=== PATIENT | female | born 1935 | race Caucasian/White ===

== ENCOUNTER 2023-11-20 12:40 | Inpatient (IN) | payer OTHER, SELFPAY ==
[2023-11-20] VITALS (48 sets, daily range): BP systolic 98–172; BP diastolic 52–79; PULSE 63–80; RESP 12–28; TEMP 35.9–37.4; O2SAT 93–100; BMI 24.7
--- NOTE | 2023-11-20 | PATH_ITS ---
[facility] Accession Number: [id number] No. of containers..01 Tissue . 01 Material submitted: . small bowel - SMALL BOWEL . 01 Diagnosis: Small Bowel, Segmental Resection: Acute ischemic enteritis, including fresh hemorrhage, crypt atrophy, and neutrophilic activity. See comment. Serositis. Negative for dysplasia and malignancy. MRV 11/25/2023 1622 Local . 01 Comment: The reported incarcerated umbilical hernia is noted. No obvious viral cytopathic effects are identified and there is no evidence of vasculitis. . 01 Electronically signed: . Fiona Nguyen MD, Pathologist NPI- [id number] . 01 Gross description: . The specimen is received in formalin labeled with the patient's name, , and small bowel, consists of an unoriented portion of bowel measuring 8.0 cm in length by 1.9 cm in diameter with mesentery extending out to 2.1 cm. The serosa is hemorrhagic and ragged across an area measuring 5.6 cm in greatest dimension. The hemorrhagic mucosa is located equidistant from both the staple margins at 1.5 cm. The staple margins are inked black and blue, and the mesentery margin is inked green. The mucosa is dusky hong-brown with normal appearing folds and no lesions identified. The robbins average 0.3 cm thick with no perforations identified. No lymph nodes are identified upon palpation. Shift Coordinator sections are submitted as follows: . A1: Rep margins en face. A2: Full thickness sections with hemorrhagic and nonhemorrhagic serosa. ([id number]) /MRV 11/23/2023 1210 Local . 01 Pathologist provided ICD-10: K55.019 . 01 CPT . 986088 Specimen Comment: A courtesy copy of this report has been sent to [phone] Performed at: 01 [facility] [address] [place] [address], [place], [place] [id number] MD Felipe Rosenthal MD Phone: [phone]
[2023-11-20 13:00] LABS: Add Manual Diff / Slide Review NO; Basophils Absolute Auto 0 /uL (0-100); Basophils Percent Auto 0.1 % (0-2); Eosinophils Absolute Auto 0 /uL (0-450); Eosinophils Percent Auto 0.3 % (2-4); Hematocrit 42.3 % (36-46); Hemoglobin 13.7 g/dL (12.0-16.0); INR 2.9 (0.9-1.3); Lymphocytes Absolute Auto 600 /uL (1100-4500); Lymphocytes Percent Auto 3.2 % (25-40); Mean Corpuscular HGB Conc 32.4 % (30-36); Mean Corpuscular Hemoglobin 30.4 PG (26-34); Mean Corpuscular Volume 93.9 fL (80-100); Monocytes Absolute Auto 900 /uL (0-900); Monocytes Percent Auto 4.9 % (3-14); Neutrophils Absolute Auto 17600 /uL (1500-7000); Neutrophils Percent Auto 91.5 % (50-75); Platelet Count 146 X10^3/uL (150-400); Prothrombin Time 34.1 SECONDS (9.4-12.5); Red Blood Cell Count 4.51 X10^6/uL (4.0-5.2); Red Cell Distribution Width 15.1 % (11.6-14.8); White Blood Cell Count 19.2 X10^3/uL (4.5-11.0)
[2023-11-20] MEDS: SODIUM CHLORIDE 0.9% 1,000 ML 250 ML IV (13:01)
[2023-11-20] MEDS: ONDANSETRON 4 MG/2 ML INJ IV (13:01)
[2023-11-20 13:06] LABS: Alanine Aminotransferase 47 IU/L (<35); Albumin 3.7 g/dL (3.5-5.0); Albumin Globulin Ratio 1.1 (1.0-2.8); Alkaline Phosphatase 87 U/L (38-126); BUN Creatinine Ratio 45.7 (6-22); Bilirubin Total 2.1 mg/dL (0.2-1.3); Blood Urea Nitrogen 32 mg/dL (7-17); Calcium 11.2 mg/dL (8.4-10.2); Carbon Dioxide 29 mmol/L (22-32); Chloride 96 mmol/L (98-107); Creatine Kinase 28 U/L (30-135); Estimated Glomerular Filt Rate > 60 mL/min (>60); Globulin 3.3 g/dL (1.7-4.1); Glucose 153 mg/dL (80-110); Lipase 76 U/L (23-300); Sodium 131 mmol/L (137-145)
[2023-11-20 13:15] LABS: NT-proBNP (BNP-Adult 18+) 2960 pg/mL (<450)
[2023-11-20 13:18] LABS: Aspartate Aminotransferase 51 IU/L (14-36); HEMOLYSIS 51 (0-50); Potassium 4.6 mmol/L (3.4-5.1); Troponin I 0.041 ng/mL (0.01-0.034)
--- NOTE | 2023-11-20 13:22 | DI.CT.S_ITS ---
PROCEDURE: CT ABDOMEN PELVIS W CON INDICATIONS: abd pain w/ nausea/vomiting TECHNIQUE: After the administration of intravenous contrast, axial sections acquired from the lung bases to the pubic symphysis. Coronal and sagittal reformats were performed. For radiation dose reduction, the following was used: automated exposure control, adjustment of mA and/or kV according to patient size. COMPARISON: None. FINDINGS: Image quality: Diagnostic. Lower Chest: Right lower lobe traction bronchiectasis with small tree-in-bud nodularity which may be exaggerated by patient motion. Cardiomegaly. Hiatal hernia. ABDOMEN: Liver: The colon is interposed between the liver and the abdominal wall. Gallbladder: The gallbladder is not identified likely surgically absent. Biliary ducts: Mild central biliary prominence, a normal finding status post cholecystectomy. Pancreas: No ductal dilation. Spleen: Size is within normal limits. Adrenal Glands: No adrenal nodules. Kidneys and Ureters: Indeterminate density right nodules with soft tissue density. These may represent hyperdense cyst versus renal masses. Exophytic left renal cyst. No hydronephrosis or stone identified. Stomach and Bowel: Small bowel obstruction with transition point at a bowel containing umbilical hernia. Small hiatal hernia Peritoneum: No abnormal intraperitoneal fluid. No free air. Ventral Wall: Bowel containing umbilical hernia. Abdominal Nodes: No retroperitoneal or mesenteric adenopathy by size criteria. Vessels: Aorta and inferior vena cava are normal in size. PELVIS: Pelvic Organs: Unremarkable. Bladder: Unremarkable. Pelvic Nodes: No enlarged lymph nodes. Miscellaneous: No inguinal hernias are seen. Bones: No aggressive osseous abnormality. IMPRESSION: 1. Small bowel obstruction with transition point at a bowel containing umbilical hernia. 2. Indeterminate right renal nodules. Consider palpation ultrasound evaluation to determine if cystic. 3. Cardiomegaly. 4. Hiatal hernia. 5. Questionable tree-in-bud nodularity of the right lower lobe, consider atypical infection. Dictated by: Hung Callejas M.D. on 11/20/2023 at 13:29 Approved by: Hung Callejas M.D. on 11/20/2023 at 13:39
[2023-11-20 14:36] LABS: Procalcitonin 0.09 ng/mL (<0.5)
--- NOTE | 2023-11-20 14:52 | ED_ITS ---
HPI - Abdominal Pain General Chief Complaint: Abdominal Pain Stated Complaint: Abd pain Time Seen by Provider: 11/20/23 14:45 Source: patient and EMS Mode of arrival: EMS Limitations: no limitations History of Present Illness HPI narrative: This is an 88-year-old female with history of atrial fibrillation, prior cardiac stents and pacemaker on warfarin, hypertension, hypothyroidism, breast cancer. Patient states she has a known umbilical hernia. The popped out yesterday and has stayed out and become painful. She started having nausea and vomiting and has not been able to keep anything down. She states it has been sometime since she had a formed bowel movement had some thin liquid he ?murky? stools recently but nothing in the last 1-2 days. She states she started having some difficulties with urination overnight. She denies fevers or chills. Denies any chest pain or shortness of breath. She states she has had prior pacemaker, cardiac stents and cholecystectomy. States she takes medication for blood pressure, hypertension, coags recently was on dexamethasone. Patient states no known drug allergies. No tobacco, rare alcohol, no recreational drugs. Sees Dr. Gran[facility]. Related Data Home Medications Medication Instructions Recorded Confirmed acetaminophen 500 mg tablet 1,000 mg PO TID 11/20/23 11/20/23 dexamethasone 2 mg tablet 2 mg PO DAILY 11/20/23 11/20/23 levothyroxine 50 mcg tablet 50 mcg PO DAILY 11/20/23 11/20/23 losartan 25 mg tablet 12.5 mg PO BEDTIME 11/20/23 11/20/23 metoprolol succinate 50 mg 50 mg PO QPM 11/20/23 11/20/23 tablet,extended release 24 hr ondansetron 4 mg disintegrating 4 mg PO Q6H PRN nausea/vomiting 11/20/23 11/20/23 tablet oxycodone 5 mg tablet 5 mg PO Q4HR PRN Pain (Scale Score 11/20/23 11/20/23 7-10) sennosides 8.6 mg tablet (senna) 8.6 mg PO BEDTIME 11/20/23 11/20/23 tizanidine 2 mg tablet 1 mg PO Q6HR PRN Muscle Spasm 11/20/23 11/20/23 warfarin 1 mg tablet 1.5 mg PO QPM 11/20/23 11/20/23 Allergies Allergy/AdvReac Type Severity Reaction Status Date / Time No Known Drug Allergies Allergy Verified 11/20/23 12:46 Review of Systems Review of Systems ROS Unobtainable: All systems reviewed & are unremarkable except as noted in HPI and below Patient History Medical History (Updated 11/20/23 @ 17:27 by Ray Schaeffer MD) Breast cancer Hyponatremia Hypothyroid Hyperlipidemia Congestive heart failure Atrial fibrillation Pathologic fracture Hiatal hernia Surgical History (Updated 11/20/23 @ 17:24 by Ray Schaeffer MD) H/O mastectomy History of cholecystectomy Social History Smoking Status: Never smoker Smoking Status: Never smoker alcohol intake frequency: 0-2 drinks per day Substance Use Type: does not use Exam Narrative Exam Narrative: GENERAL: Alert and oriented x three, moderate distress. HEENT: Head normocephalic, atraumatic, EOMI, pupils reactive, face symmetric, moist mucous membranes NECK: Supple, full range of motion CARDIOVASCULAR: Regular rate and rhythm without murmurs, rubs or gallops. RESPIRATORY: Breath sounds equal bilaterally, no wheezes rales or rhonchi. ABDOMEN: Soft, patient has umbilical hernia that is painful, slightly discolored, unable to easily reduce. Patient is distended. Normoactive bowel sounds all 4 quadrants. No guarding or rebound, rigidity, no mass : No CVA tenderness EXTREMITIES: Normal range of motion, no clubbing or edema. Neurovascularly intact NEUROLOGICAL: Cranial nerves II through XII grossly intact. Moving all extremities SKIN: Warm, dry, no petechiae, no rashes or lesions. Initial Vital Signs Initial Vital Signs: Vital Signs Pulse Rate 75 11/20/23 12:37 Pulse Oximetry 96 11/20/23 12:37 Course Orders Ordered: ED Orders 11/20/23 12:44 BNP [NT-proBNP (BNP-Adult 18+)] Stat Complete Blood Count AUTO DIFF Stat Comprehensive Metabolic Panel Stat Lactate (Lactic Acid) Stat Lipase Stat Procalcitonin Stat Prothrombin Time INR Stat Troponin & CK Cardiac Panel Stat 11/20/23 12:48 EKG-12 Lead Stat 11/20/23 13:22 CT abdomen pelvis w con Stat 11/20/23 14:00 Blood Culture Stat 11/20/23 15:30 Lactate (Lactic Acid) Stat Type and Screen Stat 11/20/23 16:26 Urinalysis and Microscopic Stat Urine Culture Stat Heparin Sodium (Porcine) (Heparin 5,000 Unit/Ml Vial) 5,000 unit SUBCUT BID DIANA Hydromorphone HCl (Hydromorphone 1 Mg Inj) 0 mg IV Q5MIN PRN PRN Reason: Pain, Moderate (4-6) Dextrose/Sodium Chloride (Dextrose 5%-0.9% Ns) 1,000 mls @ 75 mls/hr IV CONT DIANA Piperacillin Sod/Tazobactam (Sod 3.375 gm/ Sodium Chloride) 100 mls @ 25 mls/hr IV Q8H DIANA Morphine Sulfate (Morphine 4 Mg/Ml Inj) 3 mg IV Q2HR DIANA Naloxone HCl (Naloxone 0.4 Mg/Ml Vial) 0.2 mg IV Q2MIN PRN PRN Reason: Opiate Reversal Ondansetron HCl (Ondansetron 4 Mg Odt) 4 mg PO NOW PRN PRN Reason: Nausea And Vomiting Last Admin: 11/20/23 15:19 Dose: 4 mg Documented By: JAY JAY Ondansetron HCl (Ondansetron 4 Mg/2 Ml Inj) 4 mg IV NOW PRN PRN Reason: Nausea And Vomiting Last Admin: 11/20/23 13:01 Dose: 4 mg Documented By: MANOHAR Ondansetron HCl (Ondansetron 4 Mg/2 Ml Inj) 4 mg IV NOW PRN PRN Reason: Nausea And Vomiting Discontinued Medications Bupivacaine HCl (Bupivacaine 0.25% (Pf) Vial) 30 ml INJ NOW ONE Stop: 11/20/23 18:16 Last Admin: 11/20/23 18:15 Dose: 30 ml Documented By: ALEXIA Sodium Chloride (Normal Saline 0.9%) 1,000 mls @ 250 mls/hr IV BOLUS ONE Stop: 11/20/23 16:52 Last Infusion: 11/20/23 15:19 Dose: Infused Documented By: JAY JAY Infusion: 11/20/23 14:26 Dose: 1,000 mls/hr Documented By: Infusion: 11/20/23 13:47 Dose: 0 mls/hr Documented By: Admin: 11/20/23 13:01 Dose: 250 mls/hr Documented By: MANOHAR Sodium Chloride (Normal Saline 0.9%) 1,000 mls @ 1,000 mls/hr IV BOLUS ONE Stop: 11/20/23 16:07 Last Infusion: 11/20/23 16:38 Dose: Infused Documented By: JAY JAY Admin: 11/20/23 15:27 Dose: 1,000 mls/hr Documented By: JAY JAY Phytonadione 10 mg/ Sodium (Chloride) 101 mls @ 202 mls/hr IV NOW ONE Stop: 11/20/23 15:32 Last Infusion: 11/20/23 16:38 Dose: Infused Documented By: JAY JAY Admin: 11/20/23 15:40 Dose: 202 mls/hr Documented By: JAY JAY Piperacillin Sod/Tazobactam (Sod 3.375 gm/ Sodium Chloride) 100 mls @ 25 mls/hr IV Q8H ONE Stop: 11/20/23 17:29 Last Infusion: 11/20/23 17:51 Dose: 0 mls/hr Documented By: Admin: 11/20/23 17:41 Dose: 25 mls/hr Documented By: MJ Acetaminophen (Ofirmev) 1,000 mg in 100 mls @ 400 mls/hr IV NOW ONE Stop: 11/20/23 18:51 Last Admin: 11/20/23 18:40 Dose: 400 mls/hr Documented By: MJ Morphine Sulfate (Morphine 4 Mg/Ml Inj) 4 mg IV NOW ONE Stop: 11/20/23 15:09 Last Admin: 11/20/23 15:18 Dose: 4 mg Documented By: JAY JAY Morphine Sulfate (Morphine 4 Mg/Ml Inj) 4 mg IV NOW ONE Stop: 11/20/23 15:36 Last Admin: 11/20/23 16:36 Dose: Not Given Documented By: JAY JAY Vital Signs Vital signs: Vital Signs - 8 hr 11/20/23 12:37 11/20/23 12:38 11/20/23 12:38 Temperature Pulse Rate 75 75 Respiratory Rate Blood Pressure 126/62 Pulse Oximetry 96 96 Oxygen Delivery Method 11/20/23 12:41 11/20/23 12:46 11/20/23 12:46 Temperature 98.4 F Pulse Rate 80 67 Respiratory Rate 14 15 Blood Pressure 126/62 125/56 L Pulse Oximetry 99 99 Oxygen Delivery Method Room Air 11/20/23 12:54 11/20/23 12:54 11/20/23 13:00 Temperature Pulse Rate 64 Respiratory Rate 26 H Blood Pressure 116/70 109/67 Pulse Oximetry 96 Oxygen Delivery Method 11/20/23 13:00 11/20/23 13:30 11/20/23 13:30 Temperature Pulse Rate 64 64 Respiratory Rate 15 21 Blood Pressure 168/72 H Pulse Oximetry 96 97 Oxygen Delivery Method Room Air Room Air 11/20/23 14:00 11/20/23 14:25 11/20/23 14:25 Temperature Pulse Rate 65 64 Respiratory Rate 18 17 Blood Pressure 145/65 H Pulse Oximetry 98 97 Oxygen Delivery Method Room Air 11/20/23 14:30 11/20/23 14:30 11/20/23 14:45 Temperature Pulse Rate 65 Respiratory Rate 14 Blood Pressure 135/65 126/62 Pulse Oximetry 94 Oxygen Delivery Method 11/20/23 14:45 11/20/23 15:00 11/20/23 15:00 Temperature Pulse Rate 64 64 Respiratory Rate 18 18 Blood Pressure 156/69 H Pulse Oximetry 96 99 Oxygen Delivery Method 11/20/23 15:16 11/20/23 15:16 11/20/23 15:30 Temperature Pulse Rate 65 64 Respiratory Rate 17 17 Blood Pressure 172/68 H Pulse Oximetry 99 93 Oxygen Delivery Method 11/20/23 15:31 11/20/23 15:31 Temperature Pulse Rate 64 Respiratory Rate 19 Blood Pressure 111/55 L Pulse Oximetry 94 Oxygen Delivery Method MDM - Abdominal Pain Lab Data 11/20/23 12:44 11/20/23 12:44 Labs: Lab Results 11/20/23 11/20/23 Range/Units 12:44 15:30 WBC 19.2 H (4.5-11.0) X10^3/uL RBC 4.51 (4.0-5.2) X10^6/uL Hgb 13.7 (12.0-16.0) g/dL Hct 42.3 (36-46) % MCV 93.9 (80-100) fL MCH 30.4 (26-34) PG MCHC 32.4 (30-36) % RDW 15.1 H (11.6-14.8) % Plt Count 146 L (150-400) X10^3/uL Neut % (Auto) 91.5 H (50-75) % Lymph % (Auto) 3.2 L (25-40) % [place] % (Auto) 4.9 (3-14) % Eos % (Auto) 0.3 L (2-4) % Baso % (Auto) 0.1 (0-2) % Neut # (Auto) 83122 H (1372-0220) /uL Lymph # (Auto) 600 L (1810-9212) /uL [place] # (Auto) 900 (0-900) /uL Eos # (Auto) 0 (0-450) /uL Baso # (Auto) 0 (0-100) /uL PT 34.1 H (9.4-12.5) SECONDS INR 2.9 H (0.9-1.3) Sodium 131 L (137-145) mmol/L Potassium 4.6 (3.4-5.1) mmol/L Chloride 96 L (98-107) mmol/L Carbon Dioxide 29 (22-32) mmol/L BUN 32 H (7-17) mg/dL Creatinine 0.70 (0.52-1.04) mg/dL Estimated GFR > 60 (>60) mL/min BUN/Creatinine Ratio 45.7 H (6-22) Glucose 153 H (80-110) mg/dL Lactate 3.0 H 2.2 H (0.7-2.1) mmol/L Calcium 11.2 H (8.4-10.2) mg/dL Total Bilirubin 2.1 H (0.2-1.3) mg/dL AST 51 H (14-36) IU/L ALT 47 H (<35) IU/L Alkaline Phosphatase 87 (38-126) U/L Total Creatine Kinase 28 L (30-135) U/L Troponin I 0.041 H (0.01-0.034) ng/mL NT-Pro-B Natriuret Pep 2960 H (<450) pg/mL Total Protein 7.0 (6.3-8.2) g/dL Albumin 3.7 (3.5-5.0) g/dL Globulin 3.3 (1.7-4.1) g/dL Albumin/Globulin Ratio 1.1 (1.0-2.8) Lipase 76 (23-300) U/L Procalcitonin 0.09 (<0.5) ng/mL Blood Type A Negative Antibody Screen Negative Imaging Data CT scan - abdomen/pelvis: Radiologist's Impression: [address] [address] [address] Scan Report Signed Patient: Paige Collins MR#: [id number] : 1935 Acct:[id number] Age/Sex: 88 / F Date of Service: 11/20/23 Loc: ED Accession Number: [id number] Procedure: CT abdomen pelvis w con Ordering Provider: Peg Landers D.O. PROCEDURE: CT ABDOMEN PELVIS W CON INDICATIONS: abd pain w/ nausea/vomiting TECHNIQUE: After the administration of intravenous contrast, axial sections acquired from the lung bases to the pubic symphysis. Coronal and sagittal reformats were performed. For radiation dose reduction, the following was used: automated exposure control, adjustment of mA and/or kV according to patient size. COMPARISON: None. FINDINGS: Image quality: Diagnostic. Lower Chest: Right lower lobe traction bronchiectasis with small tree-in-bud nodularity which may be exaggerated by patient motion. Cardiomegaly. Hiatal hernia. ABDOMEN: Liver: The colon is interposed between the liver and the abdominal wall. Gallbladder: The gallbladder is not identified likely surgically absent. Biliary ducts: Mild central biliary prominence, a normal finding status post cholecystectomy. Pancreas: No ductal dilation. Spleen: Size is within normal limits. Adrenal Glands: No adrenal nodules. Kidneys and Ureters: Indeterminate density right nodules with soft tissue density. These may represent hyperdense cyst versus renal masses. Exophytic left renal cyst. No hydronephrosis or stone identified. Stomach and Bowel: Small bowel obstruction with transition point at a bowel containing umbilical hernia. Small hiatal hernia Peritoneum: No abnormal intraperitoneal fluid. No free air. Ventral Wall: Bowel containing umbilical hernia. Abdominal Nodes: No retroperitoneal or mesenteric adenopathy by size criteria. Vessels: Aorta and inferior vena cava are normal in size. PELVIS: Pelvic Organs: Unremarkable. Bladder: Unremarkable. Pelvic Nodes: No enlarged lymph nodes. Miscellaneous: No inguinal hernias are seen. Bones: No aggressive osseous abnormality. IMPRESSION: 1. Small bowel obstruction with transition point at a bowel containing umbilical hernia. 2. Indeterminate right renal nodules. Consider palpation ultrasound evaluation to determine if cystic. 3. Cardiomegaly. 4. Hiatal hernia. 5. Questionable tree-in-bud nodularity of the right lower lobe, consider atypical infection. Dictated by: Hung Callejas M.D. on 11/20/2023 at 13:29 Approved by: Hung Callejas M.D. on 11/20/2023 at 13:39 ECG Data Attestation: I personally reviewed and interpreted this ECG as follows: Prior ECG tracings: not available for review Interpretation: Wide QRS rhythm no pacer spikes seen but appears to be a paced rhythm, rate of 65 QRS of 142 QTC 482. No prior for comparison. Rate of 65 QRS of 156 QTC 495 ventricularly paced rhythm. MDM Narrative Medical decision making narrative: 88-year-old female comes in complaint of abdominal nausea vomiting with decreased output. Patient history of chemotherapy for breast cancer, is on warfarin for atrial fibrillation has pacemaker. Show leukocytosis, no tachycardia on hypotensive or febrile lactate obtained 3, procalcitonin is 0.09 Hemoglobin is 13, platelets is 146 normal renal function and electrolytes with an INR of 2.9 Patient's LFTs are also elevated with a bili of 2.1, AST of 51 and ALT of 47- lipase is negative. Trope is 041, patient does not have any chest pain or shortness of breath, BNP is 2960. CT abdomen pelvis shows umbilical hernia with small-bowel obstruction with transition point at the hernia. Indeterminate right renal nodule consider follow up ultrasound to evaluate, cardiomegaly, hiatal hernia questionable tree-in-bud nodular right lower lobe consider atypical infection. Patient was given fluids and continued for bowel obstruction. Patient did receive Zofran which has been helpful she has not been vomiting regularly. Patient was given pain medications attempted reduction, when imaged on CT fairly small opening. Attempted reduction after some pain medications but unsuccessful. Spoke with Dr. Schaeffer, plan for OR, possibly tomorrow with reversal of warfarin. Did discuss we do have Kcentra available patient needs to be worse more quickly. Plan for admission to medicine. NPO. Spoke with Dr. Garcia, hospitalist accepts for admission. Did update Dr. Garcia as Dr. Schaeffer re-contacted plans for OR tonight we will give 10 mg of vitamin K and 2 units of FFP after discussion with Dr. Schaeffer. Did discuss we do have Kcentra available if needed. Discharge Plan Departure Patient Disposition: Admitted As Inpatient Clinical Impression: Hernia, umbilical, SBO (small bowel obstruction), Leukocytosis, Elevated LFTs Admit Date/Time: 11/20/23 15:35 Admit Provider: Bang Garcia
[2023-11-20] MEDS: MORPHINE 4 MG/ML INJ IV (15:18)
[2023-11-20] MEDS: ONDANSETRON 4 MG ODT PO (15:19)
[2023-11-20] MEDS: SODIUM CHLORIDE 0.9% 1,000 ML 1000 ML IV (15:27)
[2023-11-20] MEDS: PHYTONADIONE (VIT K1) 10 MG in SODIUM CHLORIDE 0.9% 100 ML 202 MG IV (15:40)
[2023-11-20 15:52] LABS: Reflexed Lactate in 2 Hours Y
[2023-11-20 15:54] LABS: Lactate (Lactic Acid) 2.2 mmol/L (0.7-2.1)
--- NOTE | 2023-11-20 16:18 | P.HP_ITS ---
History of Present Illness History of Present Illness Date Patient Seen: 11/20/23 Time Patient Seen: 16:22 Date of Onset of Symptoms: 11/20/23 Chief complaint: Abd pain Narrative: The patient is an 88-year-old female who is currently residing at [facility] after a hospitalization in [place] for compression fractures of the back. The patient needed intermediate facility care and apparently there was no local openings. The patient has a long history of recurrent symptoms relating to her periumbilical hernia. Apparently it popped out last evening while trying to stand up and has not been reducible since. This has led to progressive pain. She has an obvious bulging there. Because of persistent and worsening pain as well as inability to reduce the hernia she was brought to the emergency department. Here the hernia could not be reduced, and CT indicated a fairly small hernia opening. Dr. Schaeffer, surgeon on-call, requested reversal with vitamin K and FFP for OR today. The patient is on warfarin for atrial fibrillation. She has an extensive cardiac history including coronary artery disease with cardiac stents as well as a pacemaker and atrial fibrillation. She also has a history of hypertension, hypothyroidism and breast cancer. She did have some chest pressure in the emergency department, her ECG reveals a paced rhythm. She did have a mild lactic acidosis as well. The patient states do not resuscitate is her wish to me while interviewing her. The patient has stable vital signs and was given a fluid bolus of 2 L for a mild lactic acidosis. Prior surgical history includes pacemaker, PCI, and cholecystectomy. Her primary care doctor is Dr. Yordan guy with [facility] in [place]. She lives with her son, in the [place] area of [place]. [facility] Medical History Breast cancer Hyponatremia Hypothyroid Hyperlipidemia Congestive heart failure Atrial fibrillation Pathologic fracture Hiatal hernia Social History Smoking Status: Never smoker Meds Home Medications and Allergies Home Medications Medication Instructions Recorded Confirmed Type acetaminophen 500 mg tablet 1,000 mg PO TID 11/20/23 11/20/23 History dexamethasone 2 mg tablet 2 mg PO DAILY 11/20/23 11/20/23 History levothyroxine 50 mcg tablet 50 mcg PO DAILY 11/20/23 11/20/23 History losartan 25 mg tablet 12.5 mg PO BEDTIME 11/20/23 11/20/23 History metoprolol succinate 50 mg 50 mg PO QPM 11/20/23 11/20/23 History tablet,extended release 24 hr ondansetron 4 mg disintegrating 4 mg PO Q6H PRN nausea/vomiting 11/20/23 11/20/23 History tablet oxycodone 5 mg tablet 5 mg PO Q4HR PRN Pain (Scale Score 11/20/23 11/20/23 History 7-10) sennosides 8.6 mg tablet (senna) 8.6 mg PO BEDTIME 11/20/23 11/20/23 History tizanidine 2 mg tablet 1 mg PO Q6HR PRN Muscle Spasm 11/20/23 11/20/23 History warfarin 1 mg tablet 1.5 mg PO QPM 11/20/23 11/20/23 History Allergies Allergy/AdvReac Type Severity Reaction Status Date / Time No Known Drug Allergies Allergy Verified 11/20/23 12:46 Review of Systems Review of Systems Narrative: She denies shortness of breath, or nausea. No overt abdominal distention. All else reviewed and otherwise noncontributory. Exam Vital Signs (past 8 hours): - 11/20/23 12:37 11/20/23 12:38 11/20/23 12:38 Temperature Pulse Rate 75 75 Respiratory Rate Blood Pressure 126/62 Pulse Oximetry 96 96 Oxygen Delivery Method Oxygen Flow Rate 11/20/23 12:41 11/20/23 12:46 11/20/23 12:46 Temperature 98.4 F Pulse Rate 80 67 Respiratory Rate 14 15 Blood Pressure 126/62 125/56 L Pulse Oximetry 99 99 Oxygen Delivery Method Room Air Oxygen Flow Rate 11/20/23 12:54 11/20/23 12:54 11/20/23 13:00 Temperature Pulse Rate 64 Respiratory Rate 26 H Blood Pressure 116/70 109/67 Pulse Oximetry 96 Oxygen Delivery Method Oxygen Flow Rate 11/20/23 13:00 11/20/23 13:30 11/20/23 13:30 Temperature Pulse Rate 64 64 Respiratory Rate 15 21 Blood Pressure 168/72 H Pulse Oximetry 96 97 Oxygen Delivery Method Room Air Room Air Oxygen Flow Rate 11/20/23 14:00 11/20/23 14:25 11/20/23 14:25 Temperature Pulse Rate 65 64 Respiratory Rate 18 17 Blood Pressure 145/65 H Pulse Oximetry 98 97 Oxygen Delivery Method Room Air Oxygen Flow Rate 11/20/23 14:30 11/20/23 14:30 11/20/23 14:45 Temperature Pulse Rate 65 Respiratory Rate 14 Blood Pressure 135/65 126/62 Pulse Oximetry 94 Oxygen Delivery Method Oxygen Flow Rate 11/20/23 14:45 11/20/23 15:00 11/20/23 15:00 Temperature Pulse Rate 64 64 Respiratory Rate 18 18 Blood Pressure 156/69 H Pulse Oximetry 96 99 Oxygen Delivery Method Oxygen Flow Rate 11/20/23 15:16 11/20/23 15:16 11/20/23 15:30 Temperature Pulse Rate 65 64 Respiratory Rate 17 17 Blood Pressure 172/68 H Pulse Oximetry 99 93 Oxygen Delivery Method Oxygen Flow Rate 11/20/23 15:31 11/20/23 15:31 11/20/23 15:45 Temperature Pulse Rate 64 Respiratory Rate 19 Blood Pressure 111/55 L 103/55 L Pulse Oximetry 94 Oxygen Delivery Method Oxygen Flow Rate 11/20/23 15:45 11/20/23 16:00 11/20/23 16:00 Temperature Pulse Rate 64 64 Respiratory Rate 19 16 Blood Pressure 120/56 L Pulse Oximetry 93 96 Oxygen Delivery Method Nasal Cannula Oxygen Flow Rate 2 Oxygen Delivery Method Nasal Cannula Oxygen Flow Rate 2 Narrative Exam Narrative: Slightly uncomfortable, alert and oriented, slightly anxious. Her speech is fluent and normal judgment. Normocephalic skull, EOMI, anicteric sclerae and symmetric pupils. Oropharynx is unremarkable. Her speech is clear. Neck is supple with midline trachea. Lungs are clear, normal effort and rate. Heart is irregular without murmur. Abdomen is slightly distended and she has a palpable periumbilical hernia about 2 cm in diameter. This is tender at the base and nonreducible. Extremities are free of edema, she is good radial pulses. Joints are free of deformities. Skin is free of rash or lesions. She has no adenopathy. Objective ECG Impression: Paced rhythm. Imaging CT scan - abdomen: Radiologist's impression: 1. Small bowel obstruction with transition point at a bowel containing umbilical hernia. 2. Indeterminate right renal nodules. Consider palpation ultrasound evaluation to determine if cystic. 3. Cardiomegaly. 4. Hiatal hernia. 5. Questionable tree-in-bud nodularity of the right lower lobe, consider atypical infection. Labs 11/20/23 12:44 11/20/23 12:44 Labs: Laboratory Results - last 24 hr 11/20/23 11/20/23 12:44 15:30 WBC 19.2 H RBC 4.51 Hgb 13.7 Hct 42.3 MCV 93.9 MCH 30.4 MCHC 32.4 RDW 15.1 H Plt Count 146 L Neut % (Auto) 91.5 H Lymph % (Auto) 3.2 L [place] % (Auto) 4.9 Eos % (Auto) 0.3 L Baso % (Auto) 0.1 Neut # (Auto) 62281 H Lymph # (Auto) 600 L [place] # (Auto) 900 Eos # (Auto) 0 Baso # (Auto) 0 PT 34.1 H INR 2.9 H Sodium 131 L Potassium 4.6 Chloride 96 L Carbon Dioxide 29 BUN 32 H Creatinine 0.70 Estimated GFR > 60 BUN/Creatinine Ratio 45.7 H Glucose 153 H Lactate 3.0 H 2.2 H Calcium 11.2 H Total Bilirubin 2.1 H AST 51 H ALT 47 H Alkaline Phosphatase 87 Total Creatine Kinase 28 L Troponin I 0.041 H NT-Pro-B Natriuret Pep 2960 H Total Protein 7.0 Albumin 3.7 Globulin 3.3 Albumin/Globulin Ratio 1.1 Lipase 76 Procalcitonin 0.09 Blood Type A Negative Assessment & Plan Assessment & Plan narrative: 1. Small bowel obstruction and incarcerated umbilical hernia, present on admission and active. 2. Possible pneumonia on CT scan, present on admission and active. 3. Coronary artery disease, present on admission and active. 4. Atrial fibrillation on chronic anticoagulation with warfarin, present on admission and rate controlled. 5. Hypertension, present on admission and not active. 6. Hypothyroidism, present on admission and active. 7. Recent compression fractures and admission to intermediate facility, present on admission and active. 8. DNR status is stated today. PLAN: -NPO -reverse with vitamin K and 2 units of FFP now. -surgery for release of incarcerated hernia at 5:00 p.m. today. -DNR status is requested. -continue perioperative cardiac medications as able. This will include aspirin and metoprolol. -fluid resuscitation and trend lactic acid. -we will cover with empiric Zosyn for possible pneumonia as well as an abdominal infection as patient is at risk for perforation of viscus or translocation. -admit to ICU postoperatively. -trend troponin and lactic acid. Proxy: Son, Maximino Collins DNR ALBERT (estimated date of discharge): 11/23 to [facility] ([facility]). Time Spent With Patient Time with patient: 30 to 49 minutes with 50% spent counseling/coordinating care Quality MIPS - Admit I confirm the patient?s Advance Care Plan is present, Code status is documented, Surrogate decision maker is in patient?s record [If Yes, STOP here]: Yes
--- NOTE | 2023-11-20 16:54 | SUR.OPER ---
Supine on padded OR bed, head on pillow, arms secured on padded arm boards at <90 degrees abduction, legs uncrossed, safety belt at thigh, tape over blanket over lower legs.
[2023-11-20 16:55] LABS: Appearance Urine UA CLEAR; Bilirubin Urine UA NEGATIVE (NEGATIVE); Color Urine UA YELLOW; Glucose Urine UA NEGATIVE (Negative); Ketones Urine UA NEGATIVE (NEGATIVE); Leukocyte Esterase Urine UA NEGATIVE (NEGATIVE); Nitrite Urine UA NEGATIVE (Negative); Occult Blood Urine UA 1+ (Negative); Protein Urine UA NEGATIVE (Negative); Specific Gravity Urine UA 1.015 (1.000-1.035)
[2023-11-20 16:59] LABS: pH Urine UA 5.5 (4.5-8.0)
[2023-11-20 17:06] LABS: Bacteria Urine None Seen; RBC Urine 1-5/HPF (0-5/HPF); Squamous Epithelial Cell Urine 0-1 /HPF (0-5/HPF); WBC Urine None Seen (0-5/HPF)
[2023-11-20 17:18] LABS: Reflexed Lactate in 2 Hours Y
--- NOTE | 2023-11-20 17:21 | P.CONS_ITS ---
History of Present Illness Consult details Date Patient Seen: 11/20/23 Time Patient Seen: 17:21 Chief complaint: Abd pain Narrative: 88-year-old woman PMH atrial fibrillation on chronic anticoagulation, hypertension who presents with a small-bowel obstruction. She developed abdominal pain associated with nausea and emesis evaluated at the [facility] Emergency Department 11/20/2023. On arrival afebrile vital signs within normal limits. Laboratory studies notable for WBC 19, with left shift, platelets 146, INR 2.9 troponin 0.041, BNP 2960. CT abdomen pelvis demonstrates a small-bowel obstruction within a periumbilical hernia. Previous abdominal surgery includes laparoscopic cholecystectomy. Meds Home Medications and Allergies Home Medications Medication Instructions Recorded Confirmed Type acetaminophen 500 mg tablet 1,000 mg PO TID 11/20/23 11/20/23 History dexamethasone 2 mg tablet 2 mg PO DAILY 11/20/23 11/20/23 History levothyroxine 50 mcg tablet 50 mcg PO DAILY 11/20/23 11/20/23 History losartan 25 mg tablet 12.5 mg PO BEDTIME 11/20/23 11/20/23 History metoprolol succinate 50 mg 50 mg PO QPM 11/20/23 11/20/23 History tablet,extended release 24 hr ondansetron 4 mg disintegrating 4 mg PO Q6H PRN nausea/vomiting 11/20/23 11/20/23 History tablet oxycodone 5 mg tablet 5 mg PO Q4HR PRN Pain (Scale Score 11/20/23 11/20/23 History 7-10) sennosides 8.6 mg tablet (senna) 8.6 mg PO BEDTIME 11/20/23 11/20/23 History tizanidine 2 mg tablet 1 mg PO Q6HR PRN Muscle Spasm 11/20/23 11/20/23 History warfarin 1 mg tablet 1.5 mg PO QPM 11/20/23 11/20/23 History Allergies Allergy/AdvReac Type Severity Reaction Status Date / Time No Known Drug Allergies Allergy Verified 11/20/23 12:46 Exam Vital Signs (past 8 hours): - 11/20/23 12:37 11/20/23 12:38 11/20/23 12:38 Temperature Pulse Rate 75 75 Respiratory Rate Blood Pressure 126/62 Pulse Oximetry 96 96 Oxygen Delivery Method Oxygen Flow Rate 11/20/23 12:41 11/20/23 12:46 11/20/23 12:46 Temperature 98.4 F Pulse Rate 80 67 Respiratory Rate 14 15 Blood Pressure 126/62 125/56 L Pulse Oximetry 99 99 Oxygen Delivery Method Room Air Oxygen Flow Rate 11/20/23 12:54 11/20/23 12:54 11/20/23 13:00 Temperature Pulse Rate 64 Respiratory Rate 26 H Blood Pressure 116/70 109/67 Pulse Oximetry 96 Oxygen Delivery Method Oxygen Flow Rate 11/20/23 13:00 11/20/23 13:30 11/20/23 13:30 Temperature Pulse Rate 64 64 Respiratory Rate 15 21 Blood Pressure 168/72 H Pulse Oximetry 96 97 Oxygen Delivery Method Room Air Room Air Oxygen Flow Rate 11/20/23 14:00 11/20/23 14:25 11/20/23 14:25 Temperature Pulse Rate 65 64 Respiratory Rate 18 17 Blood Pressure 145/65 H Pulse Oximetry 98 97 Oxygen Delivery Method Room Air Oxygen Flow Rate 11/20/23 14:30 11/20/23 14:30 11/20/23 14:45 Temperature Pulse Rate 65 Respiratory Rate 14 Blood Pressure 135/65 126/62 Pulse Oximetry 94 Oxygen Delivery Method Oxygen Flow Rate 11/20/23 14:45 11/20/23 15:00 11/20/23 15:00 Temperature Pulse Rate 64 64 Respiratory Rate 18 18 Blood Pressure 156/69 H Pulse Oximetry 96 99 Oxygen Delivery Method Oxygen Flow Rate 11/20/23 15:16 11/20/23 15:16 11/20/23 15:30 Temperature Pulse Rate 65 64 Respiratory Rate 17 17 Blood Pressure 172/68 H Pulse Oximetry 99 93 Oxygen Delivery Method Oxygen Flow Rate 11/20/23 15:31 11/20/23 15:31 11/20/23 15:45 Temperature Pulse Rate 64 Respiratory Rate 19 Blood Pressure 111/55 L 103/55 L Pulse Oximetry 94 Oxygen Delivery Method Oxygen Flow Rate 11/20/23 15:45 11/20/23 16:00 11/20/23 16:00 Temperature Pulse Rate 64 64 Respiratory Rate 19 16 Blood Pressure 120/56 L Pulse Oximetry 93 96 Oxygen Delivery Method Nasal Cannula Oxygen Flow Rate 2 11/20/23 16:15 11/20/23 16:29 11/20/23 16:29 Temperature Pulse Rate 65 66 Respiratory Rate 24 23 Blood Pressure 120/55 L Pulse Oximetry 100 98 Oxygen Delivery Method Oxygen Flow Rate 11/20/23 16:30 11/20/23 16:30 11/20/23 16:52 Temperature 98.9 F Pulse Rate 68 65 Respiratory Rate 19 16 Blood Pressure 122/59 L 101/79 Pulse Oximetry 98 94 Oxygen Delivery Method Room Air Oxygen Flow Rate 11/20/23 16:59 11/20/23 17:04 11/20/23 17:07 Temperature 98.9 F 99.4 F 98.9 F Pulse Rate 67 65 65 Respiratory Rate 18 22 19 Blood Pressure 152/61 H 134/54 L 134/54 L Pulse Oximetry Oxygen Delivery Method Oxygen Flow Rate 11/20/23 17:12 Temperature 98.9 F Pulse Rate 65 Respiratory Rate 16 Blood Pressure 132/57 L Pulse Oximetry Oxygen Delivery Method Oxygen Flow Rate Oxygen Delivery Method Room Air Oxygen Flow Rate 2 Narrative Exam Narrative: GENERAL: A well nourished, elderly woman, uncomfortable lying in bed. HEENT: Normocephalic, atraumatic. No scleral icterus CHEST: Rising symmetrically. No audible wheezes CARDIOVASCULAR: Warm and well perfused. Regular rate ABDOMEN: Tender periumbilical region with a nonreducible hernia. No peritonitis. EXTREMITIES: Normal tone and without edema. NEUROLOGIC: Moving all extremities spontaneously. No gross motor deficits. Objective Labs 11/20/23 12:44 11/20/23 12:44 Labs: Laboratory Results - last 24 hr 11/20/23 11/20/23 11/20/23 12:44 15:30 16:26 WBC 19.2 H RBC 4.51 Hgb 13.7 Hct 42.3 MCV 93.9 MCH 30.4 MCHC 32.4 RDW 15.1 H Plt Count 146 L Neut % (Auto) 91.5 H Lymph % (Auto) 3.2 L [place] % (Auto) 4.9 Eos % (Auto) 0.3 L Baso % (Auto) 0.1 Neut # (Auto) 92280 H Lymph # (Auto) 600 L [place] # (Auto) 900 Eos # (Auto) 0 Baso # (Auto) 0 PT 34.1 H INR 2.9 H Sodium 131 L Potassium 4.6 Chloride 96 L Carbon Dioxide 29 BUN 32 H Creatinine 0.70 Estimated GFR > 60 BUN/Creatinine Ratio 45.7 H Glucose 153 H Lactate 3.0 H 2.2 H Calcium 11.2 H Total Bilirubin 2.1 H AST 51 H ALT 47 H Alkaline Phosphatase 87 Total Creatine Kinase 28 L Troponin I 0.041 H NT-Pro-B Natriuret Pep 2960 H Total Protein 7.0 Albumin 3.7 Globulin 3.3 Albumin/Globulin Ratio 1.1 Lipase 76 Procalcitonin 0.09 Urine Color Yellow Urine Appearance Clear Urine pH 5.5 Ur Specific [place] 1.015 Urine Protein Negative Urine Glucose (UA) Negative Urine Ketones Negative Urine Occult Blood 1+ H Urine Nitrate Negative Urine Bilirubin Negative Urine Urobilinogen 2.0 H Ur Leukocyte Esterase Negative Urine RBC 1-5/hpf Urine WBC None seen Ur Squamous Epith Cells 0-1 /hpf Urine Bacteria None seen Blood Type A Negative Antibody Screen Negative PFSH Medical History (Updated 11/20/23 @ 17:27 by Ray Schaeffer MD) Breast cancer Hyponatremia Hypothyroid Hyperlipidemia Congestive heart failure Atrial fibrillation Pathologic fracture Hiatal hernia Surgical History (Updated 11/20/23 @ 17:24 by Ray Schaeffer MD) H/O mastectomy History of cholecystectomy Tobacco & Substance Use Smoking Status: Never smoker Assessment & Plan Assessment and plan (1) SBO (small bowel obstruction): Problem details: 88-year-old woman PMH atrial fibrillation on anticoagulation, congestive heart failure, with a incarcerated umbilical hernia with associated small-bowel obstruction. Nonreducible hernia no peritonitis hemodynamically stable. I reviewed her CT abdomen pelvis which demonstrates small bowel obstruction transition point is within the hernia sac at the umbilicus. I discussed with the patient my recommendations with the we proceed with a exploratory laparotomy possible bowel resection. An overview of the operation was discussed. Operative risks including hemorrhage, infection, anastomotic leak, heart attack, stroke and were discussed. Her questions have been answered she is in agreement with this plan. She provides her written and verbal consent to proceed. -2 units FFP for reversal of warfarin anticoagulation -NPO NG tube if emesis -Amin catheter -exploratory laparotomy possible bowel resection Status: Acute
[2023-11-20] MEDS: PIPERACILLIN/TAZO 3.375 GM in SODIUM CHLORIDE 0.9% 100 ML IV ×2 (17:41→20:15)
[2023-11-20] MEDS: BUPIVACAINE 0.25% (PF) VIAL 30 ML INJ (18:15)
[2023-11-20] MEDS: ACETAMINOPHEN IV 1,000 MG/100 ML VIAL 400 MG IV (18:40)
--- NOTE | 2023-11-20 19:03 | PM.OP.1 ---
Operative Date/Time/Diagnoses Date of procedure: 11/20/23 Time of procedure: 19:03 Pre-op diagnosis: Incarcerated umbilical hernia Small-bowel obstruction Post-op diagnosis: same Procedure & Clinicians Procedure: Exploratory laparotomy Enterectomy x1 Same procedure as scheduled: Yes Indications: 88-year-old woman who presented with a incarcerated umbilical hernia containing small bowel with associated small bowel obstruction. Following a discussion of the risks benefits and alternatives to surgery she consents to an exploratory laparotomy. Surgeon: Ray Schaeffer Click Yes if Unassisted: Yes Anesthesia Type: General Operative Notes Findings: 10 cm ischemic segment of mid small bowel within the incarcerated hernia Specimen(s): other (Small-bowel) Estimated Blood Loss (mL): 20 Procedure in detail: Patient was brought to the operating room placed supine on the bed. Bilateral lower extremity compression devices were applied. She received Zosyn prior to skin incision. General anesthesia was induced and she was intubated with an endotracheal tube. She was prepped and draped in sterile fashion Time-out was performed. Limited midline laparotomy was made around the umbilicus. The subcutaneous tissues were divided and there was a loop of incarcerated small bowel coming through a umbilical hernia. The fascia was opened beneath the defect. The hernia sac was opened and this demonstrated a 10 cm segment of ischemic small bowel within the hernia sac. After freeing the small bowel its appearance did not improve and a small-bowel resection was performed. A window within the mesentery was made on either side of the ischemic segment and then the bowel was divided using the linear staple blue load. The mesentery was then divided after it is was ligated using silk suture. We then fashioned a [id number] functional end and anastomosis. A crotch stitch of silk was placed. An enterotomy was made in each limb and then the 2 pieces of small bowel were mated using a 3rd staple load of the linear stapler. The common channel was inspected it was widely patent and hemostatic. The common opening was then closed using a running 3-0 PDS suture. The suture line was then imbricated with interrupted silk suture. The anastomosis was well perfused and was then returned to the abdomen. We excised the remainder of the hernia sac and then the fascia was closed in running fashion using 1. PDS suture. Subcutaneous tissue was reapproximated and the skin closed with a running Vicryl suture followed by Dermabond. She tolerated the procedure well was extubated and transferred to recovery room in stable condition. Complications: none Post-operative Condition: stable
--- NOTE | 2023-11-20 19:34 | SUR.PHASEI ---
Patient responding appropriately and answering all questions correctly . Denies any abdominal pain or nausea; taking sips of water without difficulty. VSS.
[2023-11-20 19:41] LABS: Lactate 2HR (Lactic Acid Rflx) 2.4 mmol/L (0.7-2.1)
[2023-11-20] MEDS: DEXTROSE 5%-0.9% NS 1,000 ML 75 ML IV (20:15)
[2023-11-20] MEDS: HEPARIN 5,000 UNIT/ML VIAL 5000 UNIT SUBCUT (20:15)
[2023-11-20] MEDS: MORPHINE 4 MG/ML INJ 3 MG IV (20:27)
[2023-11-20 21:30] LABS: MRSA (Nasal) PCR Not Detected (Not Detect)
[2023-11-21] VITALS (30 sets, daily range): BP systolic 106–146; BP diastolic 55–85; PULSE 64–69; RESP 13–24; TEMP 35.9–36.6; O2SAT 94–100
[2023-11-21] MEDS: PIPERACILLIN/TAZO 3.375 GM in SODIUM CHLORIDE 0.9% 100 ML IV ×3 (02:30→17:25)
[2023-11-21] MEDS: MORPHINE 4 MG/ML INJ 3 MG IV ×2 (02:42→07:36)
[2023-11-21] MEDS: HEPARIN 5,000 UNIT/ML VIAL 5000 UNIT SUBCUT (07:36)
--- NOTE | 2023-11-21 08:42 | P.PN_ITS ---
Subjective Subjective Interval history: She is doing well postoperative day 1. She is status post exploratory laparotomy with release of a umbilical hernia and a small resection of small bowel which appeared to be ischemic. She is done well overnight rates her pain at 1/10. No nausea. She has bowel tones. General surgery has given her a full liquid diet. Her vital signs are stable. No fevers overnight. She denies any dyspnea, or chest pain. Exam Vital Signs (past 8 hours): - 11/21/23 00:45 11/21/23 01:00 11/21/23 01:00 Temperature Pulse Rate 67 66 Respiratory Rate 19 20 Blood Pressure 128/59 L Pulse Oximetry 100 100 Oxygen Flow Rate 11/21/23 01:15 11/21/23 01:30 11/21/23 01:45 Temperature Pulse Rate 64 66 66 Respiratory Rate 14 13 15 Blood Pressure Pulse Oximetry 100 100 100 Oxygen Flow Rate 11/21/23 01:59 11/21/23 02:00 11/21/23 02:00 Temperature Pulse Rate 65 65 Respiratory Rate 14 14 Blood Pressure 113/55 L Pulse Oximetry 100 100 Oxygen Flow Rate 11/21/23 02:15 11/21/23 02:30 11/21/23 02:37 Temperature 96.7 F L Pulse Rate 66 65 Respiratory Rate 14 14 Blood Pressure Pulse Oximetry 100 100 Oxygen Flow Rate 11/21/23 02:45 11/21/23 03:00 11/21/23 03:01 Temperature Pulse Rate 68 64 Respiratory Rate 24 20 Blood Pressure 143/65 H Pulse Oximetry 100 100 Oxygen Flow Rate 11/21/23 03:01 11/21/23 03:15 11/21/23 03:30 Temperature Pulse Rate 64 64 66 Respiratory Rate 18 14 13 Blood Pressure Pulse Oximetry 100 100 100 Oxygen Flow Rate 11/21/23 03:45 11/21/23 04:00 11/21/23 04:00 Temperature Pulse Rate 66 65 Respiratory Rate 14 14 Blood Pressure 128/58 L Pulse Oximetry 100 100 Oxygen Flow Rate 11/21/23 04:15 11/21/23 04:30 11/21/23 04:45 Temperature Pulse Rate 67 64 64 Respiratory Rate 19 22 21 Blood Pressure Pulse Oximetry 100 100 100 Oxygen Flow Rate 11/21/23 05:00 11/21/23 05:00 11/21/23 05:15 Temperature Pulse Rate 66 64 Respiratory Rate 18 21 Blood Pressure 142/67 H Pulse Oximetry 100 100 Oxygen Flow Rate 11/21/23 05:17 11/21/23 07:00 Temperature 97.6 F 97.5 F L Pulse Rate 69 Respiratory Rate 24 Blood Pressure 135/85 Pulse Oximetry 100 Oxygen Flow Rate 2 Oxygen Delivery Method Nasal Cannula Oxygen Flow Rate 2 Narrative Exam Narrative: No acute distress, fluent speech. Lungs are clear, normal rate and effort. Heart is regular, no murmur. Abdomen is soft, minimally tender. Extremities are free of edema with good pedal pulses. There are wounds on the lateral aspect of both feet. These are deep and somewhat crusty. They are dressed with a honey saturated dressing which has been in place for several days. These are described as being chronic, lasting about 4 years with slow improvement. These were addressed, dressed and a plan was put forth at [facility] in her last hospitalization and this plan has been followed at [facility]. Objective Labs 11/21/23 09:00 11/21/23 09:00 Labs: Laboratory Results - last 24 hr 11/20/23 11/20/23 11/20/23 12:44 15:30 16:26 WBC 19.2 H RBC 4.51 Hgb 13.7 Hct 42.3 MCV 93.9 MCH 30.4 MCHC 32.4 RDW 15.1 H Plt Count 146 L Neut % (Auto) 91.5 H Lymph % (Auto) 3.2 L [place] % (Auto) 4.9 Eos % (Auto) 0.3 L Baso % (Auto) 0.1 Neut # (Auto) 35290 H Lymph # (Auto) 600 L [place] # (Auto) 900 Eos # (Auto) 0 Baso # (Auto) 0 PT 34.1 H INR 2.9 H Sodium 131 L Potassium 4.6 Chloride 96 L Carbon Dioxide 29 BUN 32 H Creatinine 0.70 Estimated GFR > 60 BUN/Creatinine Ratio 45.7 H Glucose 153 H Lactate 3.0 H 2.2 H Calcium 11.2 H Total Bilirubin 2.1 H AST 51 H ALT 47 H Alkaline Phosphatase 87 Total Creatine Kinase 28 L Troponin I 0.041 H NT-Pro-B Natriuret Pep 2960 H Total Protein 7.0 Albumin 3.7 Globulin 3.3 Albumin/Globulin Ratio 1.1 Lipase 76 Procalcitonin 0.09 Urine Color Yellow Urine Appearance Clear Urine pH 5.5 Ur Specific [place] 1.015 Urine Protein Negative Urine Glucose (UA) Negative Urine Ketones Negative Urine Occult Blood 1+ H Urine Nitrate Negative Urine Bilirubin Negative Urine Urobilinogen 2.0 H Ur Leukocyte Esterase Negative Urine RBC 1-5/hpf Urine WBC None seen Ur Squamous Epith Cells 0-1 /hpf Urine Bacteria None seen Nasal Screen MRSA (PCR) Blood Type A Negative Antibody Screen Negative 11/20/23 11/20/23 19:20 20:00 WBC RBC Hgb Hct MCV MCH MCHC RDW Plt Count Neut % (Auto) Lymph % (Auto) [place] % (Auto) Eos % (Auto) Baso % (Auto) Neut # (Auto) Lymph # (Auto) [place] # (Auto) Eos # (Auto) Baso # (Auto) PT INR Sodium Potassium Chloride Carbon Dioxide BUN Creatinine Estimated GFR BUN/Creatinine Ratio Glucose Lactate 2.4 H Calcium Total Bilirubin AST ALT Alkaline Phosphatase Total Creatine Kinase Troponin I NT-Pro-B Natriuret Pep Total Protein Albumin Globulin Albumin/Globulin Ratio Lipase Procalcitonin Urine Color Urine Appearance Urine pH Ur Specific [place] Urine Protein Urine Glucose (UA) Urine Ketones Urine Occult Blood Urine Nitrate Urine Bilirubin Urine Urobilinogen Ur Leukocyte Esterase Urine RBC Urine WBC Ur Squamous Epith Cells Urine Bacteria Nasal Screen MRSA (PCR) Not detected Blood Type Antibody Screen [facility] Medical History (Updated 11/20/23 @ 17:27 by Ray Schaeffer MD) Breast cancer Hyponatremia Hypothyroid Hyperlipidemia Congestive heart failure Atrial fibrillation Pathologic fracture Hiatal hernia Surgical History (Updated 11/20/23 @ 17:24 by Ray Schaeffer MD) H/O mastectomy History of cholecystectomy Social History Smoking Status: Never smoker Assessment & Plan Assessment & Plan narrative: 1. Small bowel obstruction and incarcerated umbilical hernia status post release and limited small bowel resection, present on admission and improved. 2. Possible pneumonia on CT scan, present on admission and active. 3. Coronary artery disease, present on admission and active. 4. Atrial fibrillation on chronic anticoagulation with warfarin, present on admission and rate controlled. 5. Hypertension, present on admission and not active. 6. Hypothyroidism, present on admission and active. 7. Recent compression fractures and admission to half-way facility, present on admission and active. 8. DNR status is stated today. 9. 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 These were present on admission and are active. PLAN: -advance diet per surgery (dsicussed with). -resume warfarin (was reversed before surgery). -out of bed. -discontinue Amin -resume baseline blood pressure medications today. -fluid resuscitation and trend lactic acid. -we will cover with empiric Zosyn for possible pneumonia as well as an abdominal infection as patient is at risk for perforation of viscus or translocation. -transfer out of ICU. -trend troponin and lactic acid. -this was treated both at [facility] with honey saturated dressings as well as [facility]. We will have wound care evaluation tomorrow to see if they agree with the current program. Proxy: SonMaximino DNR ALBERT (estimated date of discharge): 11/23 to SNF ([facility]).
[2023-11-21 09:18] LABS: Add Manual Diff / Slide Review NO; Basophils Absolute Auto 0 /uL (0-100); Basophils Percent Auto 0.2 % (0-2); Eosinophils Absolute Auto 0 /uL (0-450); Hematocrit 32.7 % (36-46); Hemoglobin 10.9 g/dL (12.0-16.0); Lymphocytes Absolute Auto 200 /uL (1100-4500); Mean Corpuscular HGB Conc 33.3 % (30-36); Mean Corpuscular Hemoglobin 31.7 PG (26-34); Mean Corpuscular Volume 95.1 fL (80-100); Monocytes Absolute Auto 300 /uL (0-900); Monocytes Percent Auto 3.3 % (3-14); Neutrophils Absolute Auto 9000 /uL (1500-7000); Neutrophils Percent Auto 94.5 % (50-75); Platelet Count 80 X10^3/uL (150-400); Red Blood Cell Count 3.44 X10^6/uL (4.0-5.2); Red Cell Distribution Width 15.5 % (11.6-14.8); White Blood Cell Count 9.5 X10^3/uL (4.5-11.0)
[2023-11-21 09:20] LABS: INR 1.2 (0.9-1.3); Prothrombin Time 13.5 SECONDS (9.4-12.5)
[2023-11-21 09:26] LABS: Alanine Aminotransferase 100 IU/L (<35); Albumin 3.3 g/dL (3.5-5.0); Albumin Globulin Ratio 1.2 (1.0-2.8); Alkaline Phosphatase 70 U/L (38-126); Aspartate Aminotransferase 82 IU/L (14-36); BUN Creatinine Ratio 45.6 (6-22); Bilirubin Total 2.1 mg/dL (0.2-1.3); Blood Urea Nitrogen 31 mg/dL (7-17); Calcium 10.5 mg/dL (8.4-10.2); Carbon Dioxide 25 mmol/L (22-32); Chloride 100 mmol/L (98-107); Estimated Glomerular Filt Rate > 60 mL/min (>60); Globulin 2.8 g/dL (1.7-4.1); Glucose 158 mg/dL (80-110); HEMOLYSIS 48 (0-50); Potassium 4.9 mmol/L (3.4-5.1); Sodium 133 mmol/L (137-145); Total Protein 6.1 g/dL (6.3-8.2)
--- NOTE | 2023-11-21 09:39 | PM.PNPO.1 ---
Subjective Subjective Date Patient Seen: 11/21/23 Time Patient Seen: 09:39 Interval history: Postoperative day 1 status post exploratory laparotomy small-bowel resection for incarcerated umbilical hernia with ischemic bowel -tolerating clear liquids + flatus -minimal abdominal pain 11/17 -no fever wound drainage Exam Vital Signs (past 8 hours): - 11/21/23 01:45 11/21/23 01:59 11/21/23 02:00 Temperature Pulse Rate 66 65 Respiratory Rate 15 14 Blood Pressure 113/55 L Pulse Oximetry 100 100 Oxygen Flow Rate 11/21/23 02:00 11/21/23 02:15 11/21/23 02:30 Temperature Pulse Rate 65 66 65 Respiratory Rate 14 14 14 Blood Pressure Pulse Oximetry 100 100 100 Oxygen Flow Rate 11/21/23 02:37 11/21/23 02:45 11/21/23 03:00 Temperature 96.7 F L Pulse Rate 68 64 Respiratory Rate 24 20 Blood Pressure Pulse Oximetry 100 100 Oxygen Flow Rate 11/21/23 03:01 11/21/23 03:01 11/21/23 03:15 Temperature Pulse Rate 64 64 Respiratory Rate 18 14 Blood Pressure 143/65 H Pulse Oximetry 100 100 Oxygen Flow Rate 11/21/23 03:30 11/21/23 03:45 11/21/23 04:00 Temperature Pulse Rate 66 66 65 Respiratory Rate 13 14 14 Blood Pressure Pulse Oximetry 100 100 100 Oxygen Flow Rate 11/21/23 04:00 11/21/23 04:15 11/21/23 04:30 Temperature Pulse Rate 67 64 Respiratory Rate 19 22 Blood Pressure 128/58 L Pulse Oximetry 100 100 Oxygen Flow Rate 11/21/23 04:45 11/21/23 05:00 11/21/23 05:00 Temperature Pulse Rate 64 66 Respiratory Rate 21 18 Blood Pressure 142/67 H Pulse Oximetry 100 100 Oxygen Flow Rate 11/21/23 05:15 11/21/23 05:17 11/21/23 07:00 Temperature 97.6 F 97.5 F L Pulse Rate 64 69 Respiratory Rate 21 24 Blood Pressure 135/85 Pulse Oximetry 100 100 Oxygen Flow Rate 2 Oxygen Delivery Method Nasal Cannula Oxygen Flow Rate 2 Narrative Exam Narrative: General elderly woman alert oriented no acute distress Abdomen soft nontender incision clean dry intact. Objective Labs 11/21/23 09:00 11/21/23 09:00 Labs: Laboratory Results - last 24 hr 11/20/23 11/20/23 11/20/23 12:44 15:30 16:26 WBC 19.2 H RBC 4.51 Hgb 13.7 Hct 42.3 MCV 93.9 MCH 30.4 MCHC 32.4 RDW 15.1 H Plt Count 146 L Neut % (Auto) 91.5 H Lymph % (Auto) 3.2 L [place] % (Auto) 4.9 Eos % (Auto) 0.3 L Baso % (Auto) 0.1 Neut # (Auto) 15523 H Lymph # (Auto) 600 L [place] # (Auto) 900 Eos # (Auto) 0 Baso # (Auto) 0 PT 34.1 H INR 2.9 H Sodium 131 L Potassium 4.6 Chloride 96 L Carbon Dioxide 29 BUN 32 H Creatinine 0.70 Estimated GFR > 60 BUN/Creatinine Ratio 45.7 H Glucose 153 H Lactate 3.0 H 2.2 H Calcium 11.2 H Total Bilirubin 2.1 H AST 51 H ALT 47 H Alkaline Phosphatase 87 Total Creatine Kinase 28 L Troponin I 0.041 H NT-Pro-B Natriuret Pep 2960 H Total Protein 7.0 Albumin 3.7 Globulin 3.3 Albumin/Globulin Ratio 1.1 Lipase 76 Procalcitonin 0.09 Urine Color Yellow Urine Appearance Clear Urine pH 5.5 Ur Specific [place] 1.015 Urine Protein Negative Urine Glucose (UA) Negative Urine Ketones Negative Urine Occult Blood 1+ H Urine Nitrate Negative Urine Bilirubin Negative Urine Urobilinogen 2.0 H Ur Leukocyte Esterase Negative Urine RBC 1-5/hpf Urine WBC None seen Ur Squamous Epith Cells 0-1 /hpf Urine Bacteria None seen Nasal Screen MRSA (PCR) Blood Type A Negative Antibody Screen Negative 11/20/23 11/20/23 11/21/23 19:20 20:00 09:00 WBC 9.5 D RBC 3.44 L Hgb 10.9 L Hct 32.7 L MCV 95.1 MCH 31.7 MCHC 33.3 RDW 15.5 H Plt Count 80 L Neut % (Auto) 94.5 H Lymph % (Auto) 2.0 L [place] % (Auto) 3.3 Eos % (Auto) 0.0 L Baso % (Auto) 0.2 Neut # (Auto) 9000 H Lymph # (Auto) 200 L [place] # (Auto) 300 Eos # (Auto) 0 Baso # (Auto) 0 PT 13.5 H D INR 1.2 Sodium 133 L Potassium 4.9 Chloride 100 Carbon Dioxide 25 BUN 31 H Creatinine 0.68 Estimated GFR > 60 BUN/Creatinine Ratio 45.6 H Glucose 158 H Lactate 2.4 H Calcium 10.5 H Total Bilirubin 2.1 H AST 82 H ALT 100 H Alkaline Phosphatase 70 Total Creatine Kinase Troponin I NT-Pro-B Natriuret Pep Total Protein 6.1 L Albumin 3.3 L Globulin 2.8 Albumin/Globulin Ratio 1.2 Lipase Procalcitonin Urine Color Urine Appearance Urine pH Ur Specific [place] Urine Protein Urine Glucose (UA) Urine Ketones Urine Occult Blood Urine Nitrate Urine Bilirubin Urine Urobilinogen Ur Leukocyte Esterase Urine RBC Urine WBC Ur Squamous Epith Cells Urine Bacteria Nasal Screen MRSA (PCR) Not detected Blood Type Antibody Screen PFSH Medical History (Updated 11/20/23 @ 17:27 by Ray Schaeffer MD) Breast cancer Hyponatremia Hypothyroid Hyperlipidemia Congestive heart failure Atrial fibrillation Pathologic fracture Hiatal hernia Surgical History (Updated 11/20/23 @ 17:24 by Ray Schaeffer MD) H/O mastectomy History of cholecystectomy Social History Smoking Status: Never smoker Assessment & Plan Post-op Postoperative Procedures: Procedures Operation Date: 11/20/23 17:00 Actual Procedure Side Surgeon p Exploratory Laparotomy, small bowel resection Ray Schaeffer MD Postoperative status narrative: 88-year-old woman postoperative day 1 status post exploratory laparotomy with small-bowel resection for a incarcerated umbilical hernia. Recovery appropriate for day 1 has return of bowel function. -advance from clear to full liquid. Wait on soft/regular diet given mid small bowel anastomosis and dexamethasone -okay to resume warfarin -DC IV fluids -DC Amin catheter -PTOT
[2023-11-21] MEDS: LEVOTHYROXINE 50 MCG TABLET PO (10:06)
[2023-11-21] MEDS: OXYCODONE IR 5 MG TABLET PO ×2 (10:27→14:23)
--- NOTE | 2023-11-21 11:44 | PT.IIE ---
Current Diagnoses Unspecified intestinal obstruction, unspecified as to partial versus complete obstruction (11/20/23) Surgery Performed Operation Date: 11/20/23 17:00 Actual Procedures p Exploratory Laparotomy, small bowel resection - Ray Schaeffer MD Surgical History (Last Updated 11/20/23 @ 17:24 by Ray Schaeffer MD) H/O mastectomy History of cholecystectomy Medical History (Last Reviewed 11/20/23 @ 16:26 by Bang Garcia MD) Atrial fibrillation Breast cancer Congestive heart failure Hiatal hernia Hyperlipidemia Hyponatremia Hypothyroid Pathologic fracture Physical Therapy Inpatient Evaluation/Re-Eval M1 PT/OT-IP Prior Functional Status Start: 11/21/23 10:42 Freq: NEEDED Status: Active Protocol: Document 11/21/23 10:45 MB (Rec: 11/21/23 11:42 MB [id number]) Medical Review Prior Functional Status Medical History Reviewed Yes Diet/Fluid Consistency Regular Communication Pt is hyperverbal and tends to give more information and not the information asked Mobility and Gait Pt gait trained with rollator at home with son prior to hospitalization for pain and weakness and found to have compression fractures Activities of Daily Living and IADL's Assistance from friend for her ankle wounds, assistance as needed from her son at baseline, pt states she was mobilizing with her rollator Prior Functional Level (Other details) Once again, it is difficult getting direct answers from pt and her son does not answer any questions when asked/they occ argue about baseline or give different information Social History Household Members children Living Arrangements House Number of Floors (Floors) One Floor Number of Stairs To Enter/Railing? 2 steps with 2 rails to enter Home Environment Standard Height Toilet,Walk in Shower Home Equipment Front Wheel Walker,Four Wheel Walker Employment Status Retired Additional Social History Comment Pt states that she was unable to take showers at home M2 PT-IP Current Condition Start: 11/21/23 10:42 Freq: NEEDED Status: Active Protocol: Document 11/21/23 10:45 MB (Rec: 11/21/23 11:42 MB [id number]) Physical Therapy Current Condition Current Condition Evaluation Date 11/21/23 Treatment Diagnosis Hernia s/p laparoscopy, recent compression fxs, ankle wounds M3 PT-IP Subjective Start: 11/21/23 10:42 Freq: NEEDED Status: Active Protocol: Document 11/21/23 10:45 MB (Rec: 11/21/23 11:42 MB [id number]) Subjective Physical Therapy Visit Type Type Initial Evaluation Visit Start Time 10:45 Visit Stop Time 11:15 Total Visit Minutes 30 Number of COST RECOVERY TECHNICIAN Visits 0 Physical Therapy Visit Comments Patient Comments Pt makes many comments about being concerned about getting up with PT, PT being cunning, needing something to drink Patient Goals To return to [facility] Therapy Pain Assessment Pain When Pain Assessed During Mobility Pain Present Pain Present Pain Reported Location Left hip Intensity 4 Scale Used Saldaña-Leal (Faces) Description Acute Pain Behaviors Facial Grimacing,Guarding Pain Management Techniques Re-positioning,Timing of Activity with Medications M4 PT-IP Mobility and Gait Start: 11/21/23 10:42 Freq: NEEDED Status: Active Protocol: Document 11/21/23 10:45 MB (Rec: 11/21/23 11:42 MB [id number]) PT-Bed Mobility Assessment Rolling Type of Rolling Bilateral Level of Assist Contact Guard Assistance,1 Person Assistance PT-Transfer Assessment Comments Mobility Comments Son arrives with shoes with orthotics in both shoes and heel lift in one shoe. PT pulls down covers and pt with tubagrip donned and under tubagrip, there are nylons and under nylons there is kerlix around both ankles and some dried drainage lateral left ankle. Nsg nearby and nsg begins to remove the rest of the dressing and it is stuck to ankle. MD arrives and wound care assessment initiated. Given this need, PT only performs rolling in bed with pt d/t LE issues and pt fearfulness and wishing for a win with rolling. She rolls herself using log roll method to the right and to the left with lower bed rails today and SBA. She declines sitting and further OOB. PT-Balance Assessment Comments Other Balance Tests/Deviations/Treatment Pt declines getting up to EOB/ : sitting today M5 PT-IP Objective Assessments Start: 11/21/23 10:42 Freq: NEEDED Status: Active Protocol: Document 11/21/23 10:45 MB (Rec: 11/21/23 11:42 MB [id number]) Orientation Orientation/Cognition Level of Alertness Alert Safety Awareness Decreased Safety Awareness Memory Description Short Term Impaired,Longterm Impaired Comments Pt is very hyperverbal and PT must re-direct often and pt still does not answer all questions. Occ, with simple questions about LRAD used at baseline, pt and son argue. Pt most recently arrived from [facility] where she had started PT after hospitalization and found to have compression fractures. Gross Range of Motion Upper Extremity ROM Impairments Defer to OT Lower Extremity ROM Assessment Bilaterally Impaired Impairments Little toe and ankle movement B, functional fused positioning of right greater than left ankle, also wounds B and pt reports vascular insufficiency and history of surgeries Strength Lower Extremity Strength Assessment Bilaterally Impaired Comments Strength Comments Pt does not tolerate further range or MMT of LEs when attempted by PT M6 PT-IP Treatment Start: 11/21/23 10:42 Freq: NEEDED Status: Active Protocol: Document 11/21/23 10:45 MB (Rec: 11/21/23 11:42 MB [id number]) Physical Therapy Treatment Education Education Provided Precautions,Safety Other Treatments Other Treatment Performed PT ed pt on back precautions to protect compression fractures and abdominal surgery M7 PT-IP Assessment and Plan Start: 11/21/23 10:42 Freq: NEEDED Status: Active Protocol: Document 11/21/23 10:45 MB (Rec: 11/21/23 11:42 MB [id number]) PT Summary Assessment and Plan Potential Rehabilitation Potential Fair Status of Condition at Evaluation Evolving Summary Impairments Pain,ROM,Strength,Balance,Bed Mobility,Transfers,Gait, Activity Tolerance Progress Towards Goals Slow Progress due to Pain,Slow Progress due to Medical Issues,Slow Progress due to Activity Tolerance Assessment Summary Pt is a pleasantly hyperverbal 88 y/o female and PT is unable to gather full PLOF despite re-direction. One issue that arises during PT assessment is LE wound care assessment as PT doffs tubagrip from LEs. Alvarez and arrives. Pt is only agreeable to log rolling in bed this date and she is able to do this well with rails. PT presents with decreased muscle mass in her LEs and decreased range and functional strength , especially in her right greater than left ankles. She states this has been ongoing from vascular and wound changes. Recommend ongoing acute and post-acute PT to improve bed mobility, transfers and gait. Goals Bed Mobility Goal Independent Transfer Goal Standby Assistance,Front Wheeled Walker Gait Goal Standby Assistance,Front Wheel Walker Gait Distance 50 Other Goals Pt will ascend and descend 2 steps with 2 rails and no more than superv assistance to allow safe home entrance. Advance to rollator as able/ appropriate Days to Meet Goals 5 Frequency of Treatment Frequency Of Treatment Once a Day Treatment Plan Physical Therapy Treatment Plan Bed Mobility Training,Transfer Training,Gait Training, Therapeutic Exercise,Balance Retraining Precautions Abdominal Surgery Precautions Log Roll,Gait Belt above Incisional Area Weight Bearing Status Weight Bearing Status Weight Bear as Tolerated Recommendations To Nursing Amount of Assist Needed Mechanical Lift Discharge Recommendations PT Discharge Recommendations SNF Rehab Transportation Needs at Discharge Wheelchair/Cabulance
--- NOTE | 2023-11-21 11:45 | CM.DANOTE ---
DCP: Case received, EMR reviewed and met with patient. Introduced self and role. Was able to obtain information regarding patient's baseline activity status prior to hospitalization. Received most of this information from April at [facility]. Completed DCP assessment based upon information currently available. Patient was admitted yesterday afternoon to the care of the hospitalist team. PCP: Dr. Granados. Payer: confirmed: [facility]. Patient came to the hospital via ambulance from [facility] secondary to umbilical hernia that popped out, and became painful. Notes also indicate that patient was having increased nausea and vomiting. She had been unable to keep anything down. Patient was diagnosed with small bowel obstruction with transition point at a bowel containing umbilical hernia. Patient had surgery yesterday for incarcerated umbilical hernia. Met with patient in her room. Prior to this, had been updated that patient came from [facility]. Spoke to April, confirmed that she has been there since the , came from [facility]. Patient resides in [place] with son, Maximino. Patient is a one assist according to April, and uses [facility]. Patient had been admitted for compression fractures. Met with patient, confirmed that she came from [facility]. Patient is alert, was sitting up in bed post surgery. She stated, [facility] tried to get her a bed in the [place] skilled facilities, but had none available that were in the [facility] network. Therefore, ended up at [facility]. Asked patient if she was ok returning to [facility], indicated, she was, the care is ok, they just give too much food. She is ok with returning there. Hospitalist indicated that patient may be here another day, advancing diet, could be ready by tomorrow. Patient is [facility], will need a new auth, since she is here over 24 hours. Spoke to Jairo Greene vocational case manager, she will want updated clinicals. Jay, in [place], will send clinicals. P: DCP to continue to follow. Plan is for patient to return to [facility], will need to obtain new auth, clincials will go out today, and will follow up in the am. Zohra Isabel RN/Guest Services Discharge Planning/Care Management CM Discharge Assessment Start: 11/21/23 11:42 Freq: Status: Active Protocol: Document 11/21/23 11:43 VM (Rec: 11/21/23 11:45 VM [id number]) Discharge Planning Assessment Assigned Graduate Teaching Assistant Zohra Ramírez RN/Guest Services Advance Directives? No History Provided By Patient,Medical Record Prior Living Arrangements House Household Members children Type of transporation used prior to Relies on Others admit Facility Name Admitted From: [facility] Willing to Return to Facility? Yes Independent with ADL's Yes Is patient alert and oriented? Yes Caregiver for Another No DME Already Rented / Owned Wheelchair,FWW / Walker Patient/Family Preference Residential Facility Comment Patient came from [facility] Barriers to Discharge No Comment Plan is for patient to return to [facility], but will need a new auth from [facility]. Discharge Plan Residential Facility Transportation Arrangement Faciity Referrals Initiated None needed If patient plan is SNF: Has PASSR been No completed? Comment Patient has come from [facility], should not need a PASSR. Whiteboard Updated in Patient Room with Yes name and ext. # of Graduate Teaching Assistant Review Status In Process Next Review Type Continued Stay Review
--- NOTE | 2023-11-21 12:03 | PC.NURSE ---
Foot wounds Stockings noted on bilateral lower extremities, patient states that she has a history of chronic wounds on her feet and ankles for the past 40 years. Wound care evaluated the wounds at [facility] prior to her discharge and wrote instructions for dressing changes for staff at [facility]. Pt. states that her dressings were changed on Wednesday, 11/17. Stockings removed, gauze noted underneath in addition to foam placed to bilateral external ankles. Wounds had been draining and dressing adhered to skin. Normal saline applied to remove dressing. Pictures taken per provider request and uploaded to patient's chart. New foam dressings applied and new gauze. Provider to consult wound care for evaluation.
[2023-11-21] MEDS: WARFARIN 1 MG TABLET 3 MG PO (16:37)
[2023-11-21] MEDS: METOPROLOL ER 50 MG TABLET PO (16:37)
[2023-11-21 16:38] LABS: Acinetobacter calcoa-baumannii Not Detected (Not Detect); Bacteroides fragilis Not Detected (Not Detect); Candida albicans Not Detected (Not Detect); Candida auris Not Detected (Not Detect); Candida glabrata Not Detected (Not Detect); Candida krusei Not Detected (Not Detect); Candida parapsilosis Not Detected (Not Detect); Candida tropicalis Not Detected (Not Detect); Cryptococcus neoformans/gatti Not Detected (Not Detect); Enterobacter cloacae complex Not Detected (Not Detect); Enterobacterales Not Detected (Not Detect); Enterococcus faecalis Not Detected (Not Detect); Enterococcus faecium Not Detected (Not Detect); Haemophilus influenzae Not Detected (Not Detect); Klebsiella aerogenes Not Detected (Not Detect); Listeria monocytogenes Not Detected (Not Detect); Neisseria meningitidis Not Detected (Not Detect); Proteus species Not Detected (Not Detect); Pseudomonas aeruginosa Not Detected (Not Detect); Salmonella species Not Detected (Not Detect); Serratia marcescens Not Detected (Not Detect); Staphylococcus epidermidis Not Detected (Not Detect); Staphylococcus lugdunensis Not Detected (Not Detect); Staphylococcus species Detected (Not Detect); Stenotrophomonas maltophilia Not Detected (Not Detect); Streptococcus agalactiae (Gr B Not Detected (Not Detect); Streptococcus pneumonia Not Detected (Not Detect); Streptococcus pyogenes (Gr A) Not Detected (Not Detect); Streptococcus species Not Detected (Not Detect)
[2023-11-21] MEDS: ONDANSETRON 4 MG/2 ML INJ IV (17:21)
[2023-11-21] MEDS: CALCIUM CARBONATE 500 MG TAB PO (21:29)
[2023-11-21] MEDS: SENNOSIDES 8.6 MG TABLET PO (21:29)
[2023-11-21] MEDS: LOSARTAN 25 MG TABLET 12.5 MG PO (21:29)
[2023-11-21] MEDS: SODIUM CHLORIDE 0.9% 1,000 ML 75 ML IV (21:30)
[2023-11-22] VITALS (60 sets, daily range): BP systolic 116–160; BP diastolic 64–86; PULSE 64–115; RESP 16–35; TEMP 36.3–37.1; O2SAT 92–98
[2023-11-22] MEDS: PIPERACILLIN/TAZO 3.375 GM in SODIUM CHLORIDE 0.9% 100 ML IV ×3 (02:31→17:33)
[2023-11-22] MEDS: LEVOTHYROXINE 50 MCG TABLET PO (05:45)
[2023-11-22 08:40] LABS: Add Manual Diff / Slide Review NO; Basophils Absolute Auto 0 /uL (0-100); Basophils Percent Auto 0.3 % (0-2); Eosinophils Absolute Auto 0 /uL (0-450); Eosinophils Percent Auto 0.4 % (2-4); Hematocrit 36.1 % (36-46); Hemoglobin 11.9 g/dL (12.0-16.0); Lymphocytes Absolute Auto 400 /uL (1100-4500); Lymphocytes Percent Auto 4.9 % (25-40); Mean Corpuscular Hemoglobin 31.2 PG (26-34); Mean Corpuscular Volume 94.4 fL (80-100); Monocytes Absolute Auto 300 /uL (0-900); Monocytes Percent Auto 4.3 % (3-14); Neutrophils Absolute Auto 7200 /uL (1500-7000); Neutrophils Percent Auto 90.1 % (50-75); Platelet Count 86 X10^3/uL (150-400); Red Blood Cell Count 3.83 X10^6/uL (4.0-5.2); Red Cell Distribution Width 15.6 % (11.6-14.8)
[2023-11-22 08:47] LABS: INR 1.1 (0.9-1.3); Prothrombin Time 12.3 SECONDS (9.4-12.5)
[2023-11-22 08:48] LABS: Alanine Aminotransferase 75 IU/L (<35); Albumin 3.2 g/dL (3.5-5.0); Albumin Globulin Ratio 1.1 (1.0-2.8); Alkaline Phosphatase 65 U/L (38-126); Aspartate Aminotransferase 46 IU/L (14-36); BUN Creatinine Ratio 50.8 (6-22); Bilirubin Total 1.4 mg/dL (0.2-1.3); Blood Urea Nitrogen 30 mg/dL (7-17); Calcium 10.3 mg/dL (8.4-10.2); Carbon Dioxide 27 mmol/L (22-32); Chloride 102 mmol/L (98-107); Estimated Glomerular Filt Rate > 60 mL/min (>60); Globulin 2.9 g/dL (1.7-4.1); Glucose 100 mg/dL (80-110); HEMOLYSIS 27 (0-50); Potassium 3.4 mmol/L (3.4-5.1); Sodium 133 mmol/L (137-145); Total Protein 6.1 g/dL (6.3-8.2)
--- NOTE | 2023-11-22 09:56 | PT-IP ANOTE ---
Pt declines therapy this AM stating, I couldn't squish a flea, I'm so weak.
[2023-11-22] MEDS: SODIUM CHLORIDE 0.9% 1,000 ML 75 ML IV ×2 (10:13→23:41)
--- NOTE | 2023-11-22 11:30 | OT.IPNOTE ---
Discussed pt in rounds. Agreed that pt would benefit from OT services and verbal order taken. Chart reviewed and nursing consulted. Pt declines all activity at this time stating that she just doesn't think she can manage it. Will hold and continue to follow.
--- NOTE | 2023-11-22 12:50 | P.PN_ITS ---
Subjective Subjective Date Patient Seen: 11/22/23 Time Patient Seen: 12:50 Interval history: Having a ?down day?. Damari complains of a decreased appetite and increased reflux symptoms. Incisional pain is minimal. Exam Vital Signs (past 8 hours): - 11/22/23 05:00 11/22/23 07:45 11/22/23 09:00 Temperature 97.6 F 97.9 F Pulse Rate 66 86 Respiratory Rate 16 18 Blood Pressure 160/71 H 149/81 H Pulse Oximetry 98 97 Oxygen Delivery Method Room Air Oxygen Flow Rate 0 0 11/22/23 12:00 11/22/23 12:15 11/22/23 12:22 Temperature Pulse Rate 64 64 Respiratory Rate 16 16 Blood Pressure 159/76 H Pulse Oximetry Oxygen Delivery Method Oxygen Flow Rate 11/22/23 12:22 11/22/23 12:28 Temperature 97.6 F Pulse Rate 71 Respiratory Rate 18 Blood Pressure Pulse Oximetry Oxygen Delivery Method Oxygen Flow Rate Oxygen Delivery Method Room Air Oxygen Flow Rate 0 Narrative Exam Narrative: Surgical incision is intact without erythema or drainage Objective Labs 11/22/23 08:22 11/22/23 08:22 Labs: Laboratory Results - last 24 hr 11/20/23 11/22/23 14:08 08:22 WBC 8.0 RBC 3.83 L Hgb 11.9 L Hct 36.1 MCV 94.4 MCH 31.2 MCHC 33.0 RDW 15.6 H Plt Count 86 L Neut % (Auto) 90.1 H Lymph % (Auto) 4.9 L [place] % (Auto) 4.3 Eos % (Auto) 0.4 L Baso % (Auto) 0.3 Neut # (Auto) 7200 H Lymph # (Auto) 400 L [place] # (Auto) 300 Eos # (Auto) 0 Baso # (Auto) 0 PT 12.3 INR 1.1 Sodium 133 L Potassium 3.4 D Chloride 102 Carbon Dioxide 27 BUN 30 H Creatinine 0.59 Estimated GFR > 60 BUN/Creatinine Ratio 50.8 H Glucose 100 Calcium 10.3 H Total Bilirubin 1.4 H AST 46 H ALT 75 H Alkaline Phosphatase 65 Total Protein 6.1 L Albumin 3.2 L Globulin 2.9 Albumin/Globulin Ratio 1.1 A.calcoaceticus-baumannii cmplx PCR Not detected Bacteroides fragilis Not detected Eden albicans (PCR) Not detected Eden auris (PCR) Not detected C. glabrata (PCR) Not detected C. krusei (PCR) Not detected C. parapsilosis (PCR) Not detected C. tropicalis (PCR) Not detected C. neoform/gattii (PCR) Not detected Enterobacterales (PCR) Not detected E. cloacae complex PCR Not detected Enterococc faecalis PCR Not detected Enterococc faecium PCR Not detected E. coli (PCR) Not detected H. influenzae (PCR) Not detected Klebsiella aerogenes (PCR) Not detected Klebsiella oxytoca PCR Not detected Klebsiella pneumoniae Not detected List. monocytogenes PCR Not detected N. meningitidis (PCR) Not detected Proteus species (PCR) Not detected Salmonella spp. (PCR) Not detected Serratia marcescens PCR Not detected Staphylococcus sp PCR Detected Staph aureus (PCR) Not detected mecA/C & MREJ Resist Gene Not applicable mecA/C-Methicil Resis Gene Not applicable mcr-1 Colistin Res Gene PCR Not applicable Staph epidermidis (PCR) Not detected Staph lugdunensis PCR Not detected S. maltophilia (PCR) Not detected Streptococcus sp PCR Not detected Group A Strep (PCR) Not detected Strep agalactiae (PCR) Not detected Strep pneumoniae (PCR) Not detected P. aeruginosa (PCR) Not detected Darcy/B-Vanco Res Genes Not applicable blaIMP Car res Gene PCR Not applicable KPC-Carbap Res Gene PCR Not applicable blaNDM Car Res Gene PCR Not applicable OXA-48 Carbapenem Resis Gene (PCR) Not applicable blaVIM Car Res Gene PCR Not applicable CTX-M Gene Resistance (PCR) Not applicable [facility] Medical History (Updated 11/22/23 @ 12:51 by Marcel Falk MD) Breast cancer Hyponatremia Hypothyroid Hyperlipidemia Congestive heart failure Atrial fibrillation Pathologic fracture Hiatal hernia Surgical History (Updated 11/20/23 @ 17:24 by Ray Schaeffer MD) H/O mastectomy History of cholecystectomy Social History household members: children Smoking Status: Never smoker Assessment & Plan Assessment and plan (1) Postoperative examination: Status: Acute Plan I suspect she is experiencing a bit of ileus. Hold off on dietary advancement for now.
--- NOTE | 2023-11-22 12:56 | CM.DPC ---
DCP Cont. Reviewed EMR and team rounds for status updates. Called [facility] and requested auth for SV resume SNF rehab. Obtained new auth from [facility], #[id number] Called [facility] and provided Belle holder/new [facility] Auth number, will update her tomorrow re: if pt is ready for d/c. Pt is too weak today to work with PT/OT, they will try again tomorrow. No further updates at this time.
--- NOTE | 2023-11-22 13:13 | PM.PN.1 ---
Subjective Subjective Interval history: Complained of increased reflux overnight, slightly improved this morning with some nausea but no emesis. Passing gas, no bowel movements Exam Vital Signs (past 8 hours): - 11/22/23 07:45 11/22/23 09:00 11/22/23 12:00 Temperature 97.9 F Pulse Rate 86 64 Respiratory Rate 18 16 Blood Pressure 149/81 H Pulse Oximetry 97 Oxygen Delivery Method Room Air Oxygen Flow Rate 0 11/22/23 12:15 11/22/23 12:22 11/22/23 12:22 Temperature Pulse Rate 64 71 Respiratory Rate 16 18 Blood Pressure 159/76 H Pulse Oximetry Oxygen Delivery Method Oxygen Flow Rate 11/22/23 12:28 Temperature 97.6 F Pulse Rate Respiratory Rate Blood Pressure Pulse Oximetry Oxygen Delivery Method Oxygen Flow Rate Oxygen Delivery Method Room Air Oxygen Flow Rate 0 Narrative Exam Narrative: No acute distress, fluent speech. Lungs are clear, normal rate and effort. Heart is regular, no murmur. Abdomen is soft, minimally tender inferiorly to incision. Incision is c/d/i. Extremities are free of edema with good pedal pulses. Objective Labs 11/22/23 08:22 11/22/23 08:22 Labs: Laboratory Results - last 24 hr 11/20/23 11/22/23 14:08 08:22 WBC 8.0 RBC 3.83 L Hgb 11.9 L Hct 36.1 MCV 94.4 MCH 31.2 MCHC 33.0 RDW 15.6 H Plt Count 86 L Neut % (Auto) 90.1 H Lymph % (Auto) 4.9 L [place] % (Auto) 4.3 Eos % (Auto) 0.4 L Baso % (Auto) 0.3 Neut # (Auto) 7200 H Lymph # (Auto) 400 L [place] # (Auto) 300 Eos # (Auto) 0 Baso # (Auto) 0 PT 12.3 INR 1.1 Sodium 133 L Potassium 3.4 D Chloride 102 Carbon Dioxide 27 BUN 30 H Creatinine 0.59 Estimated GFR > 60 BUN/Creatinine Ratio 50.8 H Glucose 100 Calcium 10.3 H Total Bilirubin 1.4 H AST 46 H ALT 75 H Alkaline Phosphatase 65 Total Protein 6.1 L Albumin 3.2 L Globulin 2.9 Albumin/Globulin Ratio 1.1 A.calcoaceticus-baumannii cmplx PCR Not detected Bacteroides fragilis Not detected Eden albicans (PCR) Not detected Eden auris (PCR) Not detected C. glabrata (PCR) Not detected C. krusei (PCR) Not detected C. parapsilosis (PCR) Not detected C. tropicalis (PCR) Not detected C. neoform/gattii (PCR) Not detected Enterobacterales (PCR) Not detected E. cloacae complex PCR Not detected Enterococc faecalis PCR Not detected Enterococc faecium PCR Not detected E. coli (PCR) Not detected H. influenzae (PCR) Not detected Klebsiella aerogenes (PCR) Not detected Klebsiella oxytoca PCR Not detected Klebsiella pneumoniae Not detected List. monocytogenes PCR Not detected N. meningitidis (PCR) Not detected Proteus species (PCR) Not detected Salmonella spp. (PCR) Not detected Serratia marcescens PCR Not detected Staphylococcus sp PCR Detected Staph aureus (PCR) Not detected mecA/C & MREJ Resist Gene Not applicable mecA/C-Methicil Resis Gene Not applicable mcr-1 Colistin Res Gene PCR Not applicable Staph epidermidis (PCR) Not detected Staph lugdunensis PCR Not detected S. maltophilia (PCR) Not detected Streptococcus sp PCR Not detected Group A Strep (PCR) Not detected Strep agalactiae (PCR) Not detected Strep pneumoniae (PCR) Not detected P. aeruginosa (PCR) Not detected Darcy/B-Vanco Res Genes Not applicable blaIMP Car res Gene PCR Not applicable KPC-Carbap Res Gene PCR Not applicable blaNDM Car Res Gene PCR Not applicable OXA-48 Carbapenem Resis Gene (PCR) Not applicable blaVIM Car Res Gene PCR Not applicable CTX-M Gene Resistance (PCR) Not applicable REPLACED BY [facility] Medical History (Updated 11/22/23 @ 12:51 by Marcel Falk MD) Breast cancer Hyponatremia Hypothyroid Hyperlipidemia Congestive heart failure Atrial fibrillation Pathologic fracture Hiatal hernia Surgical History (Updated 11/20/23 @ 17:24 by Ray Schaeffer MD) H/O mastectomy History of cholecystectomy Social History household members: children Smoking Status: Never smoker Assessment & Plan Assessment & Plan narrative: 1. Small bowel obstruction and incarcerated umbilical hernia status post release and limited small bowel resection, present on admission and improved. 2. Possible pneumonia on CT scan, present on admission and active. 3. Coronary artery disease, present on admission and active. 4. Atrial fibrillation on chronic anticoagulation with warfarin, present on admission and rate controlled. 5. Hypertension, present on admission and not active. 6. Hypothyroidism, present on admission and active. 7. Recent compression fractures and admission to care home facility, present on admission and active. 8. DNR status is stated today. 9. 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 These were present on admission and are active. PLAN: -advance diet per surgery -resume warfarin (was reversed before surgery). -continue pt/ot as tolerated -continue home losartan 12.5 mg, metoprolol 50 mg daily. -we will cover with empiric Zosyn for possible pneumonia as well as an abdominal infection as patient is at risk for perforation of viscus or translocation. This can likely be stopped tomorrow if stable. -b/l foot wounds - this was treated both at [facility] with honey saturated dressings as well as [place]. Consider wound care consultation. Proxy: Son, Maximino Collins DNR Dispo: will go to SNF, once improved PO intake, possible in 1-3 days.
--- NOTE | 2023-11-22 17:00 | DIET.PN1 ---
Dietary Progress Note Assessment: 88F s/p small bowel resection and release of umbilical hernia. RD consulted for chronic bilateral foot wounds. Yokasta reports difficulty with diet, even fluids at this time. Currently on full liquid diet. Per GI notes, potential small ileus. Yokasta also reports some of the problem is the taste of fluids. Requesting lemon water, clear ensure, and broth. Would also benefit from Kamran for wound healing. Reports 10# weight loss over two months (5%-- not significant). Endorses reduced appetite x 3 months. Diet Recall; L: salads or half sandwich D: soup sn: cookie or fruit Ht: 177.8 cm Wt: 82 kg BMI: 24.7 UBW: 86kg (reported) Last BM: 11/18/23 (11/20/23 21:34) MNA: 13 José Miguel Score: 16 Diet: 11/21/23 Lunch Full Liquid Diet Diet Modifications: Nutrition Percent Meal Consumed 25% 11/22/23 10:43 Percent Meal Consumed 0% 11/21/23 18:00 Percent Meal Consumed 50% 11/21/23 13:15 Percent Meal Consumed 25% 11/21/23 11:21 Labs: RBC 3.83 X10^6/uL (4.0-5.2) L 11/22/23 08:22 Hgb 11.9 g/dL (12.0-16.0) L 11/22/23 08:22 Hct 36.1 % (36-46) 11/22/23 08:22 Creatinine 0.59 mg/dL (0.52-1.04) 11/22/23 08:22 Lactate 2.4 mmol/L (0.7-2.1) H 11/20/23 19:20 NT-Pro-B Natriuret Pep 2960 pg/mL (<450) H 11/20/23 12:44 Nutrition Diagnosis: Predicted inadequate protein intake r/t poor appetite and increased needs for wounds aeb foot wounds and pt report Interventions: 1. Kitchen will send lemon water, ensure clear, broth, kamran (BID), and ONS (BID) to help improve kcal/hydration/protein intake for wound healing EER: 90-105g PRO (1.1-1.3g/kg for wound healing) Monitoring/Evaluations: RD f/u 5-7 days Electronically Signed by: Irene Reddy 11/22/23 17:00 Clinical Dietitian [address] [address]
[2023-11-22] MEDS: METOPROLOL ER 50 MG TABLET PO (17:33)
[2023-11-22] MEDS: WARFARIN 1 MG TABLET 1.5 MG PO (17:35)
[2023-11-22] MEDS: LOSARTAN 25 MG TABLET 12.5 MG PO (20:10)
[2023-11-22] MEDS: SENNOSIDES 8.6 MG TABLET PO (20:10)
[2023-11-23] VITALS (24 sets, daily range): BP systolic 148–175; BP diastolic 73–88; PULSE 64–75; RESP 15–20; TEMP 36.6–37.2; O2SAT 93–98
[2023-11-23] MEDS: PIPERACILLIN/TAZO 3.375 GM in SODIUM CHLORIDE 0.9% 100 ML IV (02:26)
[2023-11-23] MEDS: LEVOTHYROXINE 50 MCG TABLET PO (06:32)
[2023-11-23 09:07] LABS: Add Manual Diff / Slide Review NO; Basophils Absolute Auto 0 /uL (0-100); Basophils Percent Auto 0.2 % (0-2); Eosinophils Absolute Auto 100 /uL (0-450); Eosinophils Percent Auto 1.6 % (2-4); Hemoglobin 10.7 g/dL (12.0-16.0); Lymphocytes Absolute Auto 400 /uL (1100-4500); Lymphocytes Percent Auto 6.9 % (25-40); Mean Corpuscular HGB Conc 33.5 % (30-36); Mean Corpuscular Hemoglobin 31.2 PG (26-34); Mean Corpuscular Volume 93.1 fL (80-100); Monocytes Absolute Auto 300 /uL (0-900); Monocytes Percent Auto 5.3 % (3-14); Neutrophils Absolute Auto 5200 /uL (1500-7000); Platelet Count 88 X10^3/uL (150-400); Red Blood Cell Count 3.44 X10^6/uL (4.0-5.2)
[2023-11-23 09:11] LABS: INR 1.1 (0.9-1.3); Prothrombin Time 12.9 SECONDS (9.4-12.5)
[2023-11-23 09:18] LABS: Alanine Aminotransferase 55 IU/L (<35); Alkaline Phosphatase 76 U/L (38-126); Aspartate Aminotransferase 36 IU/L (14-36); Bilirubin Total 1.4 mg/dL (0.2-1.3); Blood Urea Nitrogen 26 mg/dL (7-17); Carbon Dioxide 26 mmol/L (22-32); Chloride 103 mmol/L (98-107); Estimated Glomerular Filt Rate > 60 mL/min (>60); Globulin 2.9 g/dL (1.7-4.1); Glucose 86 mg/dL (80-110); HEMOLYSIS < 15 (0-50); Potassium 3.2 mmol/L (3.4-5.1); Sodium 134 mmol/L (137-145); Total Protein 5.9 g/dL (6.3-8.2)
--- NOTE | 2023-11-23 09:35 | DI.RAD.S_ITS ---
PROCEDURE: XR CHEST 1V INDICATIONS: possible PNA TECHNIQUE: One view of the chest was acquired. COMPARISON: None. FINDINGS: Surgical changes and devices: Left chest wall pulse generator with electrode lead. Left axillary clips. Lungs and pleura: Low lung volumes. No dense consolidation or pleural effusion. Mediastinum: Borderline cardiomegaly. Bones and chest wall: Degenerative changes. IMPRESSION: No dense consolidation on this single view portable radiograph with low lung volumes. No drainable effusion. Dictated by: Mio Charles M.D. on 11/23/2023 at 10:27 Approved by: Mio Charles M.D. on 11/23/2023 at 10:29
--- NOTE | 2023-11-23 09:52 | PT.IPTN ---
Current Diagnoses Unspecified intestinal obstruction, unspecified as to partial versus complete obstruction (11/20/23) Encounter for follow-up examination after completed treatment for conditions other than malignant neoplasm (11/20/23) Surgery Performed Operation Date: 11/20/23 17:00 Actual Procedures p Exploratory Laparotomy, small bowel resection - Ray Schaeffer MD Physical Therapy Treatment Note M2 PT-IP Current Condition Start: 11/21/23 10:42 Freq: NEEDED Status: Active Protocol: Document 11/21/23 10:45 MB (Rec: 11/21/23 11:42 MB [id number]) Physical Therapy Current Condition Current Condition Evaluation Date 11/21/23 Treatment Diagnosis Hernia s/p laparoscopy, recent compression fxs, ankle wounds M3 PT-IP Subjective Start: 11/21/23 10:42 Freq: NEEDED Status: Active Protocol: Document 11/23/23 09:52 AB (Rec: 11/23/23 11:42 AB [id number]) Subjective Physical Therapy Visit Type Type Treatment Note Visit Start Time 09:52 Visit Stop Time 10:35 Total Visit Minutes 43 Number of SAND SHOVELER Visits 0 Physical Therapy Visit Comments Patient Comments agreeable to do PT Therapy Pain Assessment Pain When Pain Assessed During Mobility Pain Present Pain Present Pain Reported Location abd Scale Used pain scale not stated Pain Management Techniques Distraction,Modification of Treatment,Re-positioning, Timing of Activity with Medications M4 PT-IP Mobility and Gait Start: 11/21/23 10:42 Freq: NEEDED Status: Active Protocol: Document 11/23/23 09:52 AB (Rec: 11/23/23 11:42 AB [id number]) PT-Bed Mobility Assessment Supine to Sit Supine to Sit Maximum Assistance,2 Person Assistance,Head of Bed Elevated,Bedrails Scooting Scooting to Edge of Bed Dependent PT-Transfer Assessment Sit to and From Stand Sit to and from Stand 2 Person Assistance,Use of Upper Extremities Equipment Transfer Assistive Device Gait Belt Orthotic/Prosthetic Devices or Brace: Yes Transfers Transfer Destination Chair Transfer Technique Squat Pivot Transfer Ability Level of Assist Maximum Assistance,Total Assistance,2 Person Assistance ,Use of Upper Extremities Comments Mobility Comments pt supine in bed and agreed to do PT. completed supine to sit max A x 2 and max cues log roll bed mobility with HOB elevated to ~ 30 deg per pt's request. pt requiring max A for initial sitting balance and CGA after repositioning. pt with increase posterior trunk lean and lateral lean to the R. pt required increase rest breaks in between activities. assisted pt with donning of back brace and shoes. Attempted standing x 3 but unable to stand despite max Ax 2 provided and max cues and elevating height of bed. completed squat pivot transfer max A x 2 to total A x2 with PT in front of pt to assist and NAC behind pt. required 2 attempts to complete. pt required total A x 2 for positioning on the chair. call light and table placed within reach. M5 PT-IP Objective Assessments Start: 11/21/23 10:42 Freq: NEEDED Status: Active Protocol: Document 11/21/23 10:45 MB (Rec: 11/21/23 11:42 MB [id number]) Orientation Orientation/Cognition Level of Alertness Alert Safety Awareness Decreased Safety Awareness Memory Description Short Term Impaired,Skilled Nursing Impaired Comments Pt is very hyperverbal and PT must re-direct often and pt still does not answer all questions. Occ, with simple questions about LRAD used at baseline, pt and son argue. Pt most recently arrived from [facility] where she had started PT after hospitalization and found to have compression fractures. Gross Range of Motion Upper Extremity ROM Impairments Defer to OT Lower Extremity ROM Assessment Bilaterally Impaired Impairments Little toe and ankle movement B, functional fused positioning of right greater than left ankle, also wounds B and pt reports vascular insufficiency and history of surgeries Strength Lower Extremity Strength Assessment Bilaterally Impaired Comments Strength Comments Pt does not tolerate further range or MMT of LEs when attempted by PT M6 PT-IP Treatment Start: 11/21/23 10:42 Freq: NEEDED Status: Active Protocol: Document 11/23/23 09:52 AB (Rec: 11/23/23 11:42 AB [id number]) Physical Therapy Treatment Education Education Provided Precautions,Safety M7 PT-IP Assessment and Plan Start: 11/21/23 10:42 Freq: NEEDED Status: Active Protocol: Document 11/23/23 09:52 AB (Rec: 11/23/23 11:42 AB [id number]) PT Summary Assessment and Plan Potential Rehabilitation Potential Fair Summary Impairments Pain,ROM,Strength,Balance, Coordination,Sensation,Tone, Cognition,Bed Mobility, Transfers,Gait,Activity Tolerance Progress Towards Goals Slow Progress due to Pain,Slow Progress due to Medical Issues,Slow Progress due to Activity Tolerance,Slow Progress - Other Assessment Summary pt is an 88 y/o F who resides at [facility] after sustaining L4 compression fx ( per pt). pt admitted back to the hospital for SBO and underwent ex-lap and enterectomy. pt currently with back and abdominal precautions. pt has a back brace in her room. pt also stated that she was dx with bone cancer on her spine recently hence the compression fx. pt requiring max a x 2 to total A x 2 with squat pivot transfer and unable to stand at this time. Recommending use of mechanical lift with nursing staff for transfers. pt will require SNF rehab to improve overall strength and mobility. Goals Bed Mobility Goal Moderate Assistance Transfer Goal Moderate Assistance,Front Wheeled Walker Gait Goal Moderate Assistance,Front Wheel Walker Gait Distance 25 Other Goals improve bed mobility, transfers and ambulation using FWW ~ 100 ft SBA Days to Meet Goals 10 Frequency of Treatment Frequency Of Treatment Once a Day Treatment Plan Physical Therapy Treatment Plan Bed Mobility Training,Transfer Training,Gait Training, Therapeutic Exercise,Balance Retraining,Discharge Planning, Neuromuscular Re-ed,Manual Therapy Precautions Lumbar Precautions Log Roll,No Twisting,Limit Bending,Lifting Restriction of 10 lbs Abdominal Surgery Precautions Log Roll,Lifting Restrictions, Gait Belt above Incisional Area Recommendations To Nursing Amount of Assist Needed Mechanical Lift Discharge Recommendations PT Discharge Recommendations SNF Rehab Transportation Needs at Discharge Wheelchair/Cabulance,Stretcher /Ambulance
[2023-11-23 09:54] LABS: Magnesium 1.7 mg/dL (1.6-2.3)
[2023-11-23] MEDS: OXYCODONE IR 5 MG TABLET PO ×2 (09:59→13:32)
[2023-11-23] MEDS: POTASSIUM CHLORIDE 20 MEQ TAB 40 MEQ PO (10:00)
[2023-11-23 10:13] LABS: Procalcitonin 0.84 ng/mL (<0.5)
[2023-11-23] MEDS: AMOXICILLIN/CLAV 875/125 MG 1 TAB PO ×2 (10:46→21:00)
[2023-11-23] MEDS: PANTOPRAZOLE DR 20 MG TABLET PO (10:46)
--- NOTE | 2023-11-23 11:14 | OT.IP.EVAL ---
Current Diagnoses Unspecified intestinal obstruction, unspecified as to partial versus complete obstruction (11/20/23) Encounter for follow-up examination after completed treatment for conditions other than malignant neoplasm (11/20/23) Surgery Performed Operation Date: 11/20/23 17:00 Actual Procedures p Exploratory Laparotomy, small bowel resection - Ray Schaeffer MD Past Medical History (Last Reviewed 11/20/23 @ 16:26 by Bang Garcia MD) Atrial fibrillation Breast cancer Congestive heart failure Hiatal hernia Hyperlipidemia Hyponatremia Hypothyroid Pathologic fracture Surgical History (Last Updated 11/20/23 @ 17:24 by Ray Schaeffer MD) H/O mastectomy History of cholecystectomy Occupational Therapy Inpatient Evaluation/Re-Eval to take showers at home M1 PT/OT-IP Prior Functional Status Start: 11/23/23 13:13 Freq: NEEDED Status: Active Protocol: Document 11/23/23 11:14 [facility] (Rec: 11/23/23 13:33 [facility] [id number]) Medical Review Prior Functional Status Medical History Reviewed Yes Diet/Fluid Consistency Regular Communication Pt is hyperverbal and tends to give more information and not the information asked Mobility and Gait Pt gait trained with rollator at home with son prior to hospitalization for pain and weakness and found to have compression fractures. Activities of Daily Living and IADL's Assistance from friend for her ankle wounds, assistance as needed from her son at baseline, pt states she was mobilizing with her rollator Prior Functional Level (Other details) Once again, it is difficult getting direct answers from pt and her son does not answer any questions when asked/they occ argue about baseline or give different information Per pt has been in the hospital since 2022 and has been needing extensive assist for all ADl and mobility needs. Social History Household Members children Living Arrangements House Number of Floors (Floors) One Floor Number of Stairs To Enter/Railing? 2 steps with 2 rails to enter Home Environment Standard Height Toilet,Walk in Shower Home Equipment Front Wheel Walker,Four Wheel Walker Employment Status Retired Additional Social History Comment Pt states that she was unable to take showers at home M2 OT-IP Current Condition Start: 11/23/23 13:13 Freq: Status: Active Protocol: Document 11/23/23 11:14 [facility] (Rec: 11/23/23 13:33 [facility] [id number]) Occupational Therapy Current Condition Current Condition Evaluation Date 11/23/23 Treatment Diagnosis Hernia s/p laparaoscopy- recent compression fracture Diagnosis Onset Date 11/18/23 Post Operative Precautions Lumbar Precautions Log Roll,No Twisting,Limit Bending M3 OT- IP Subjective and Pain Start: 11/23/23 13:13 Freq: Status: Active Protocol: Document 11/23/23 11:14 [facility] (Rec: 11/23/23 13:33 [facility] [id number]) OT- Subjective Occupational Therapy Visit Type Type Initial Evaluation Visit Start Time 11:14 Visit Stop Time 11:30 Total Visit Minutes 16 Occupational Therapy Visit Comments Patient Comments Pt not wanting to get at up at this time as too tired but agreed to work with OT. Patient/Caregiver Goals TO get better. OT Pain Assessment Pain When Pain Assessed At Rest Pain Present Pain Present Denied Pain M4 OT- IP ADL's Start: 11/23/23 13:13 Freq: Status: Active Protocol: Document 11/23/23 11:14 [facility] (Rec: 11/23/23 13:33 [facility] [id number]) OT [id number] General Evaluation Self-Feeding Ability Standby Assistance Comments OT Self-Feeding Comments Pt needing assist with set-up. OT ADL-Grooming Comments OT Grooming Comments Pt states did earlier. OT ADL-Oral Care Comments Oral Care Comments Pt states did earlier. OT ADL-Dressing General Eval Lower Body Dressing Ability Total Assistance Comments OT Dressing Comments Pt needing assist for all LB dressing needs at this time. OT ADL-Toileting Comments OT Toileting Comments Pt not having to go. OT ADL-Bathing Comments OT Bathing Comments Sponge bath more appropriate at this time. M5 OT- IP IADL's Start: 11/23/23 13:13 Freq: Status: Active Protocol: Document 11/23/23 11:14 [facility] (Rec: 11/23/23 13:33 [facility] [id number]) OT-Instrumental Activities of Daily Living Deficits IADL Deficits Identified Deficits Home Safety Awareness Awareness of Need for Assistance at Home Good Awareness Meal Preparation Meal Preparation Caregiver Provides Assist Lacing Operator Lacing Operator Caregiver Provides Assist M6 OT- IP Functional Cognition Start: 11/23/23 13:13 Freq: Status: Active Protocol: Document 11/23/23 11:14 [facility] (Rec: 11/23/23 13:33 [facility] [id number]) Cognitive Factors Limiting Selfcare Function Cognitive Ability Level of Alertness Alert Patient Orientation Name,Place,Situation Attention Span Ability Capable of Focused Attention, Capable of Sustained Attention Cognitive Comments Cognitive Assessment Comments PT able to follow commands for ADl and mobility needs. OT- Vision and Hearing OT- Vision Assessment Visual Acuity Glasses All The Time Visual Attentiveness WFL Occular Pursuits WFL Visual Convergence WFL Visual Dao WFL M7 OT- IP Mobility and Balance Start: 11/23/23 13:13 Freq: Status: Active Protocol: Document 11/23/23 11:14 [facility] (Rec: 11/23/23 13:33 [facility] [id number]) OT-Transfer Assessment Comments Mobility Comments Pt not able to get up. Per PT note, pt MAXA/Total assist squat pivot to the high bed to recliner. OT- Balance Assessment Sitting Balance and Reactions Static Sitting Balance Ability Fair M8 OT- IP Objective Assessments Start: 11/23/23 13:13 Freq: Status: Active Protocol: Document 11/23/23 11:14 [facility] (Rec: 11/23/23 13:33 [facility] [id number]) OT Gross Range of Motion Upper Extremity Range of Motion Assessment Within Functional Limits OT Strength Comments Strength Comments NT formally tested due to compression fx, at least 3+/5. OT- Coordination Assessment Upper Extremity Finger to Nose Test Within Functional Limits OT-Muscle Tone Assessment Muscle Tone WNL Yes M9 OT- IP Assessment and Plan Start: 11/23/23 13:13 Freq: Status: Active Protocol: Document 11/23/23 11:14 [facility] (Rec: 11/23/23 13:33 [facility] [id number]) OT Summary Assessment and Plan Potential Rehabilitation Potential Fair Analytic Complexity at Evaluation Moderate Summary OT Impairments Strength,Balance,Coordination, Functional Mobility,Self- Feeding,Grooming,Dressing, Toileting,Bathing,Toilet Transfers,Shower Transfers, Activity Tolerance Progress Towards Goals Slow Progress due to Pain,Slow Progress due to Medical Issues,Slow Progress due to Activity Tolerance Assessment Summary Pt MOD complexity and main barriers are decreased activity tolerance, balance, strength and needing extensive assist for all ADl and mobility needs. Pt will benefit from skilled rehab. Goals Self-Feeding Goal Standby Assistance Grooming Goal Standby Assistance Dressing Goal Moderate Assistance Toileting Goal Moderate Assistance Bathing Goal Moderate Assistance Toilet Transfer Goal Moderate Assistance Shower Transfer Goal Moderate Assistance Days to Meet Goals 30 Frequency of Treatment Frequency Of Treatment Once a Day Treatment Plan OT Treatment Plan ADL Training,Functional Cognition Training,Functional Mobility,Patient/Family Education,Discharge Planning Other Treatment Recommendations and Next Pt to transfer to [facility] Treatment Focus with JOSELITO ANTONIO 2. Discharge Recommendations OT Discharge Recommendations SNF Rehab Transportation Needs at Discharge Wheelchair/Cabulance
[2023-11-23] MEDS: MAGNESIUM CHLORIDE 64 MG TABLET 128 MG PO (12:11)
[2023-11-23] MEDS: SODIUM CHLORIDE 0.9% 1,000 ML 75 ML IV (13:10)
--- NOTE | 2023-11-23 14:16 | CM.DPC ---
NATALIA Cont. Reviewed EMR and team rounds for status updates. Pt was started on advancing her diet today, started on IV ABO's for suspected infection. Anticipate d/c tomorrow, 11/24 back to [facility] to resume SNF rehab.
--- NOTE | 2023-11-23 16:32 | P.PN_ITS ---
Subjective Subjective Interval history: Patient tolerating soft foods. No BM yet but passing gas. Procal elevated at 0.8 so abx continued with augmentin. Patient has no complaints other then her weakness which she knows will require SNF. Exam Vital Signs (past 8 hours): - 11/23/23 12:00 Temperature 98.9 F Pulse Rate 64 Respiratory Rate 16 Blood Pressure 156/73 H Pulse Oximetry 98 Oxygen Flow Rate 0 Oxygen Delivery Method Room Air Oxygen Flow Rate 0 Narrative Exam Narrative: No acute distress, fluent speech. Elderly woman. Lungs are clear, normal rate and effort. Heart is regular, no murmur. Abdomen is soft, minimally tender inferiorly to incision. Incision is c/d/i. Extremities are free of edema with good pedal pulses. Objective Labs 11/23/23 08:55 11/23/23 08:55 Labs: Laboratory Results - last 24 hr 11/23/23 08:55 WBC 6.0 RBC 3.44 L Hgb 10.7 L Hct 32.0 L MCV 93.1 MCH 31.2 MCHC 33.5 RDW 15.0 H Plt Count 88 L Neut % (Auto) 86.0 H Lymph % (Auto) 6.9 L [place] % (Auto) 5.3 Eos % (Auto) 1.6 L Baso % (Auto) 0.2 Neut # (Auto) 5200 Lymph # (Auto) 400 L [place] # (Auto) 300 Eos # (Auto) 100 Baso # (Auto) 0 PT 12.9 H INR 1.1 Sodium 134 L Potassium 3.2 L Chloride 103 Carbon Dioxide 26 BUN 26 H Creatinine 0.65 Estimated GFR > 60 BUN/Creatinine Ratio 40.0 H Glucose 86 Calcium 10.0 Magnesium 1.7 Total Bilirubin 1.4 H AST 36 ALT 55 H Alkaline Phosphatase 76 Total Protein 5.9 L Albumin 3.0 L Globulin 2.9 Albumin/Globulin Ratio 1.0 Procalcitonin 0.84 H [facility] Medical History (Updated 11/22/23 @ 12:51 by Marcel Falk MD) Breast cancer Hyponatremia Hypothyroid Hyperlipidemia Congestive heart failure Atrial fibrillation Pathologic fracture Hiatal hernia Surgical History (Updated 11/20/23 @ 17:24 by Ray Schaeffer MD) H/O mastectomy History of cholecystectomy Social History household members: children Smoking Status: Never smoker Assessment & Plan Assessment & Plan narrative: 1. Small bowel obstruction and incarcerated umbilical hernia status post release and limited small bowel resection, present on admission and improved. 2. Possible pneumonia on CT scan, present on admission and active. 3. Coronary artery disease, present on admission and active. 4. Atrial fibrillation on chronic anticoagulation with warfarin, present on admission and rate controlled. 5. Hypertension, present on admission and not active. 6. Hypothyroidism, present on admission and active. 7. Recent compression fractures and admission to [facility] facility, present on admission and active. 8. DNR status is stated today. 9. 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 These were present on admission and are active. PLAN: -advance diet as tolerated -resume warfarin (was reversed before surgery). -continue pt/ot as tolerated -continue home losartan 12.5 mg, metoprolol 50 mg daily. -procal elevated with unclear source, will give empiric augmentin x1 week -b/l foot wounds - this was treated both at [facility] with honey saturated dressings as well as [place]. Consider wound care consultation. Proxy: Son, Maximino Collins DNR Dispo: SNF on 11/24.
[2023-11-23] MEDS: METOPROLOL ER 50 MG TABLET PO (16:55)
[2023-11-23] MEDS: WARFARIN 1 MG TABLET 1.5 MG PO (16:55)
[2023-11-23] MEDS: LOSARTAN 25 MG TABLET 12.5 MG PO (21:00)
[2023-11-23] MEDS: SENNOSIDES 8.6 MG TABLET PO (21:00)
[2023-11-24 00:58] VITALS: BP 163/80; PULSE 68; RESP 19; TEMP 36.6; O2SAT 94
[2023-11-24] MEDS: SODIUM CHLORIDE 0.9% 1,000 ML 75 ML IV (02:07)
[2023-11-24 04:23] VITALS: BP 154/83; PULSE 66; RESP 16; TEMP 36.8; O2SAT 97
[2023-11-24 04:52] LABS: Add Manual Diff / Slide Review NO; Basophils Absolute Auto 0 /uL (0-100); Basophils Percent Auto 0.2 % (0-2); Eosinophils Absolute Auto 200 /uL (0-450); Eosinophils Percent Auto 3.4 % (2-4); Hemoglobin 10.4 g/dL (12.0-16.0); INR 1.1 (0.9-1.3); Lymphocytes Absolute Auto 500 /uL (1100-4500); Lymphocytes Percent Auto 9.7 % (25-40); Mean Corpuscular HGB Conc 33.5 % (30-36); Mean Corpuscular Volume 92.4 fL (80-100); Monocytes Absolute Auto 300 /uL (0-900); Monocytes Percent Auto 6.6 % (3-14); Neutrophils Absolute Auto 4100 /uL (1500-7000); Neutrophils Percent Auto 80.1 % (50-75); Platelet Count 89 X10^3/uL (150-400); Prothrombin Time 13.1 SECONDS (9.4-12.5); Red Blood Cell Count 3.36 X10^6/uL (4.0-5.2); White Blood Cell Count 5.1 X10^3/uL (4.5-11.0)
[2023-11-24 04:56] LABS: BUN Creatinine Ratio 48.2 (6-22); Blood Urea Nitrogen 27 mg/dL (7-17); Calcium 10.3 mg/dL (8.4-10.2); Carbon Dioxide 25 mmol/L (22-32); Chloride 108 mmol/L (98-107); Estimated Glomerular Filt Rate > 60 mL/min (>60); Glucose 89 mg/dL (80-110); HEMOLYSIS < 15 (0-50); Magnesium 1.8 mg/dL (1.6-2.3); Potassium 4.3 mmol/L (3.4-5.1); Sodium 135 mmol/L (137-145)
[2023-11-24] MEDS: LEVOTHYROXINE 50 MCG TABLET PO (06:35)
[2023-11-24] MEDS: PANTOPRAZOLE DR 20 MG TABLET PO (06:35)
[2023-11-24 08:00] VITALS: BP 159/87; PULSE 64; RESP 22; TEMP 36.9; O2SAT 97
[2023-11-24] MEDS: AMOXICILLIN/CLAV 875/125 MG 1 TAB PO (08:16)
--- NOTE | 2023-11-24 08:39 | P.DS_ITS ---
History of Present Illness History of Present Illness Date Patient Seen: 11/20/23 Time Patient Seen: 16:22 Date of Onset of Symptoms: 11/20/23 Chief complaint: Abd pain Narrative: The patient is an 88-year-old female who is currently residing at [facility] after a hospitalization in [place] for compression fractures of the back. The patient needed snf facility care and apparently there was no local openings. The patient has a long history of recurrent symptoms relating to her periumbilical hernia. Apparently it popped out last evening while trying to stand up and has not been reducible since. This has led to progressive pain. She has an obvious bulging there. Because of persistent and worsening pain as well as inability to reduce the hernia she was brought to the emergency department. Here the hernia could not be reduced, and CT indicated a fairly small hernia opening. Dr. Schaeffer, surgeon on-call, requested reversal with vitamin K and FFP for OR today. The patient is on warfarin for atrial fibrillation. She has an extensive cardiac history including coronary artery disease with cardiac stents as well as a pacemaker and atrial fibrillation. She also has a history of hypertension, hypothyroidism and breast cancer. She did have some chest pressure in the emergency department, her ECG reveals a paced rhythm. She did have a mild lactic acidosis as well. The patient states do not resuscitate is her wish to me while interviewing her. The patient has stable vital signs and was given a fluid bolus of 2 L for a mild lactic acidosis. Prior surgical history includes pacemaker, PCI, and cholecystectomy. Her primary care doctor is Dr. Yordan granados with [facility] in [place]. She lives with her son, in the [place] area of [place]. Discharge Providers Provider Date of admission: 11/20/23 15:35 Discharge Date: 11/24/23 Primary care physician: Yordan Granados MD Consults: 11/21/23 08:41 Consult to Physical Therapy Evaluate & Treat Comment: Physician Instructions: Evaluate and Treat 11/21/23 13:52 Consult to Dietitian, Adult Routine Comment: Reason For Exam: Bilateral foot wounds (chronic) 11/22/23 11:29 Consult to Occupational Therapy Evaluate & Treat Comment: Physician Instructions: Evaluate and treat 11/22/23 13:52 Consult to Wound Care Routine Comment: Consulting Provider: [facility] Discharge provider: Roberto Gottlieb DO Summary Hospital Course Discharge Diagnosis: 1. Small bowel obstruction and incarcerated umbilical hernia status post release and limited small bowel resection, present on admission and improved. 2. Possible pneumonia on CT scan, present on admission and active. 3. Coronary artery disease, present on admission and active. 4. Atrial fibrillation on chronic anticoagulation with warfarin, present on admission and rate controlled. 5. Hypertension, present on admission and not active. 6. Hypothyroidism, present on admission and active. 7. Recent compression fractures and admission to snf facility, present on admission and active. 8. DNR status is stated today. 9. 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 These were present on admission and are active. Hospital Course: Admitted for SBO due to strangulated umbilical hernia. Taken for surgery and small bowel resection which was successful and patient passing gas and tolerating soft diet post-op. Her warfarin was reversed for surgery then resumed. Possible pneumonia seen on CT scan, so put on 1 week of augmentin. Gen surg recommended soft diet then follow-up in 2 weeks in their clinic. Discharged back to SNF. Resume wound care for foot wounds at SNF. Exam Vital Signs (past 8 hours): - 11/24/23 00:58 11/24/23 04:23 11/24/23 08:00 Temperature 98 F 98.3 F 98.4 F Pulse Rate 68 66 64 Respiratory Rate 19 16 22 Blood Pressure 163/80 H 154/83 H 159/87 H Pulse Oximetry 94 97 97 Oxygen Flow Rate 0 Oxygen Delivery Method Room Air Oxygen Flow Rate 0 Narrative Exam Narrative: No acute distress, fluent speech. Elderly woman. Lungs are clear, normal rate and effort. Heart is regular, no murmur. Abdomen is soft, minimally tender inferiorly to incision. Incision is c/d/i. Extremities are free of edema with good pedal pulses. Objective Labs 11/24/23 04:18 11/24/23 04:18 Labs: Laboratory Results - last 24 hr 11/23/23 11/24/23 08:55 04:18 WBC 6.0 5.1 RBC 3.44 L 3.36 L Hgb 10.7 L 10.4 L Hct 32.0 L 31.0 L MCV 93.1 92.4 MCH 31.2 31.0 MCHC 33.5 33.5 RDW 15.0 H 15.0 H Plt Count 88 L 89 L Neut % (Auto) 86.0 H 80.1 H Lymph % (Auto) 6.9 L 9.7 L [place] % (Auto) 5.3 6.6 Eos % (Auto) 1.6 L 3.4 Baso % (Auto) 0.2 0.2 Neut # (Auto) 5200 4100 Lymph # (Auto) 400 L 500 L [place] # (Auto) 300 300 Eos # (Auto) 100 200 Baso # (Auto) 0 0 PT 12.9 H 13.1 H INR 1.1 1.1 Sodium 134 L 135 L Potassium 3.2 L 4.3 Chloride 103 108 H Carbon Dioxide 26 25 BUN 26 H 27 H Creatinine 0.65 0.56 Estimated GFR > 60 > 60 BUN/Creatinine Ratio 40.0 H 48.2 H Glucose 86 89 Calcium 10.0 10.3 H Magnesium 1.7 1.8 Total Bilirubin 1.4 H AST 36 ALT 55 H Alkaline Phosphatase 76 Total Protein 5.9 L Albumin 3.0 L Globulin 2.9 Albumin/Globulin Ratio 1.0 Procalcitonin 0.84 H PFSH Medical History (Updated 11/22/23 @ 12:51 by Marcel Falk MD) Breast cancer Hyponatremia Hypothyroid Hyperlipidemia Congestive heart failure Atrial fibrillation Pathologic fracture Hiatal hernia Surgical History (Updated 11/20/23 @ 17:24 by aRy Schaeffer MD) H/O mastectomy History of cholecystectomy Social History household members: children Smoking Status: Never smoker Discharge Plan Discharge Plan Patient Disposition: SNF Transfer to: [facility] Discharge orders & Medications Prescriptions: New amoxicillin-pot clavulanate 875-125 mg Tablet 1 tab PO BID 6 Days Qty: 12 0RF Continued sennosides [senna] 8.6 mg Tablet 8.6 mg PO BEDTIME tizanidine 2 mg tablet 1 mg PO Q6HR PRN (Reason: Muscle Spasm) metoprolol succinate 50 mg tablet extended release 24 hr 50 mg PO QPM acetaminophen 500 mg Tablet 1,000 mg PO TID dexamethasone 2 mg tablet 2 mg PO DAILY Rx Instructions: 11/16/22-11/21/22 levothyroxine 50 mcg tablet 50 mcg PO DAILY losartan 25 mg tablet 12.5 mg PO BEDTIME warfarin 1 mg tablet 1.5 mg PO QPM ondansetron 4 mg Tablet,Disintegrating 4 mg PO Q6H PRN (Reason: nausea/vomiting) oxycodone 5 mg tablet 5 mg PO Q4HR PRN (Reason: Pain) Qty: 30 0RF Follow up/Referrals: Yordan Granados MD [Primary Care Provider] - 2 Weeks Ray Schaeffer MD [Physician] - 2 Weeks Diet/Activity/Treatments Diet: Regular Food texture: Soft Visit Report/Discharge Packet Stand Alone Forms: Patient Portal/API Discharge Data Primary Care Provider: Yordan Granados
--- NOTE | 2023-11-24 09:15 | OT.IP.TRT ---
Current Diagnoses Unspecified intestinal obstruction, unspecified as to partial versus complete obstruction (11/20/23) Encounter for follow-up examination after completed treatment for conditions other than malignant neoplasm (11/20/23) Surgery Performed Operation Date: 11/20/23 17:00 Actual Procedures p Exploratory Laparotomy, small bowel resection - Ray Schaeffer MD Occupational Therapy Treatment Note M2 OT-IP Current Condition Start: 11/23/23 13:13 Freq: Status: Active Protocol: Document 11/23/23 11:14 [facility] (Rec: 11/23/23 13:33 [facility] [id number]) Occupational Therapy Current Condition Current Condition Evaluation Date 11/23/23 Treatment Diagnosis Hernia s/p laparaoscopy- recent compression fracture Diagnosis Onset Date 11/18/23 Post Operative Precautions Lumbar Precautions Log Roll,No Twisting,Limit Bending M3 OT- IP Subjective and Pain Start: 11/23/23 13:13 Freq: Status: Active Protocol: Document 11/24/23 09:15 [facility] (Rec: 11/24/23 10:21 [facility] [id number]) OT- Subjective Occupational Therapy Visit Type Type Treatment Note Visit Start Time 09:15 Visit Stop Time 09:43 Total Visit Minutes 33 Occupational Therapy Visit Comments Patient Comments Pt agreed to sponge off in bed , oral care and grooming needs . Patient/Caregiver Goals To get better. OT Pain Assessment Pain When Pain Assessed During Mobility Pain Present Pain Present Pain Reported Location Left hip Pain Behaviors Calling Out,Facial Grimacing Management Techniques Re-positioning M4 OT- IP ADL's Start: 11/23/23 13:13 Freq: Status: Active Protocol: Document 11/24/23 09:15 [facility] (Rec: 11/24/23 10:21 [facility] [id number]) OT [id number] Comments OT Self-Feeding Comments Assist with set-up. OT ADL-Grooming General Evaluation Grooming Ability Standby Assistance OT ADL-Oral Care General Eval Oral Care Ability Standby Assistance Areas of Assistance Retrieving/Set-Up of Items Comments Oral Care Comments able to tdo while in bed OT ADL-Dressing General Eval Lower Body Dressing Ability Total Assistance Comments OT Dressing Comments Total assist for brief management needs. OT ADL-Toileting Comments OT Toileting Comments Pt having Purewick in place. OT ADL-Bathing Bathing Type Bathing Type Sponge Bath General Evaluation Bathing Ability Maximal Assistance Areas Needing Assistance Wash/Dry Back,Wash/Dry Perineal Area,Wash/Dry Lower Extremities Comments OT Bathing Comments Pt able to wash her face,arms and chest and needing assist for the rest while supine. M5 OT- IP IADL's Start: 11/23/23 13:13 Freq: Status: Active Protocol: Document 11/23/23 11:14 [facility] (Rec: 11/23/23 13:33 [facility] [id number]) OT-Instrumental Activities of Daily Living Deficits IADL Deficits Identified Deficits Home Safety Awareness Awareness of Need for Assistance at Home Good Awareness Meal Preparation Meal Preparation Caregiver Provides Assist Wound Treatment Rn Wound Treatment Rn Caregiver Provides Assist M6 OT- IP Functional Cognition Start: 11/23/23 13:13 Freq: Status: Active Protocol: Document 11/24/23 09:15 [facility] (Rec: 11/24/23 10:21 [facility] [id number]) Cognitive Factors Limiting Selfcare Function Cognitive Comments Cognitive Assessment Comments PT able to follow commands for ADl and mobility needs. M7 OT- IP Mobility and Balance Start: 11/23/23 13:13 Freq: Status: Active Protocol: Document 11/24/23 09:15 [facility] (Rec: 11/24/23 10:21 [facility] [id number]) OT- Bed Mobility Assessment Rolling Type of Rolling Bilateral Level of Assistance Moderate Assistance,Maximum Assistance M8 OT- IP Objective Assessments Start: 11/23/23 13:13 Freq: Status: Active Protocol: Document 11/23/23 11:14 [facility] (Rec: 11/23/23 13:33 [facility] [id number]) OT Gross Range of Motion Upper Extremity Range of Motion Assessment Within Functional Limits OT Strength Comments Strength Comments NT formally tested due to compression fx, at least 3+/5. OT- Coordination Assessment Upper Extremity Finger to Nose Test Within Functional Limits OT-Muscle Tone Assessment Muscle Tone WNL Yes M9 OT- IP Assessment and Plan Start: 11/23/23 13:13 Freq: Status: Active Protocol: Document 11/24/23 09:15 [facility] (Rec: 11/24/23 10:21 [facility] [id number]) OT Summary Assessment and Plan Potential Rehabilitation Potential Fair Analytic Complexity at Evaluation Moderate Summary OT Impairments Strength,Balance,Coordination, Functional Mobility,Self- Feeding,Grooming,Dressing, Toileting,Bathing,Toilet Transfers,Shower Transfers, Activity Tolerance Progress Towards Goals Slow Progress due to Pain,Slow Progress due to Medical Issues,Slow Progress due to Activity Tolerance Assessment Summary Pt able to participate in grooming, oral care, and sponge bathing while in bed. Pt to be discharged to SNF today. Goals Self-Feeding Goal Standby Assistance Grooming Goal Standby Assistance Dressing Goal Moderate Assistance Toileting Goal Moderate Assistance Bathing Goal Moderate Assistance Toilet Transfer Goal Moderate Assistance Shower Transfer Goal Moderate Assistance Days to Meet Goals 30 Frequency of Treatment Frequency Of Treatment Once a Day Treatment Plan OT Treatment Plan ADL Training,Functional Cognition Training,Functional Mobility,Patient/Family Education,Discharge Planning Discharge Recommendations OT Discharge Recommendations SNF Rehab Transportation Needs at Discharge Wheelchair/Cabulance
--- NOTE | 2023-11-24 09:15 | CM.DPC ---
DCP Cont. Reviewed EMR for team rounds and status updates. Plan is for pt to d/c to [facility] today at 11:30am, clincials compiled and in pt's red folder, PASSAR faxed. No further DCP needs at this time.
--- NOTE | 2023-11-24 11:02 | PT-IP ANOTE ---
checked on pt and pt refused PT. pt stated that he is transferring back to [facility] in a few minutes and just wanted to rest for now before going.
[2023-11-24] MEDS: OXYCODONE IR 5 MG TABLET PO (11:08)
--- NOTE | 2023-12-07 12:47 | PM.CN ---
History of Present Illness Consult details Date Patient Seen: 11/22/23 Chief complaint: leg wounds Reason for consult: wound care Narrative: 88-year-old female history with CAD, AFib, cardiac stents, pacemaker on warfarin, hypertension, hypothyroidism, breast cancer was admitted and in treatment for incarcerated umbilical hernia with associated small bowel obstruction. Wound care was consulted for chronic wounds of bilateral lower extremities, present for at least 4 years with slow improvement. She notes she has some dressing supplies at home. Denies any significant recent change to wounds. Meds Home Medications and Allergies Home Medications Medication Instructions Recorded Confirmed Type acetaminophen 500 mg tablet 1,000 mg PO TID 11/20/23 12/09/23 History dexamethasone 2 mg tablet 2 mg PO DAILY 11/20/23 12/09/23 History levothyroxine 50 mcg tablet 50 mcg PO DAILY 11/20/23 12/09/23 History losartan 25 mg tablet 12.5 mg PO BEDTIME 11/20/23 12/09/23 History metoprolol succinate 50 mg 50 mg PO QPM 11/20/23 12/09/23 History tablet,extended release 24 hr ondansetron 4 mg disintegrating 4 mg PO Q6H PRN nausea/vomiting 11/20/23 12/09/23 History tablet sennosides 8.6 mg tablet (senna) 8.6 mg PO BEDTIME 11/20/23 12/09/23 History tizanidine 2 mg tablet 1 mg PO Q6HR PRN Muscle Spasm 11/20/23 12/09/23 History warfarin 1 mg tablet 1.5 mg PO QPM 11/20/23 12/09/23 History oxycodone 5 mg tablet 5 mg PO Q4HR PRN Pain #30 tabs 11/24/23 12/09/23 Rx Allergies Allergy/AdvReac Type Severity Reaction Status Date / Time No Known Drug Allergies Allergy Verified 12/09/23 15:05 Exam Vital Signs (past 8 hours): Oxygen Delivery Method Room Air Oxygen Flow Rate 0 Narrative Exam Narrative: Bilateral lower extremities with crusting wounds, no active drainage, no erythema Objective Labs 11/24/23 04:18 11/24/23 04:18 PFSH Medical History (Updated 12/14/23 @ 12:41 by Jana Arana PA-C) Breast cancer Hyponatremia Hypothyroid Hyperlipidemia Congestive heart failure Atrial fibrillation Pathologic fracture Hiatal hernia Surgical History (Updated 11/20/23 @ 17:24 by Ray Schaeffer MD) H/O mastectomy History of cholecystectomy Social History household members: children Tobacco & Substance Use Smoking Status: Never smoker Assessment & Plan Assessment and plan (1) Chronic ulcer of lower extremity: Qualifiers: Laterality: unspecified laterality Non-pressure ulcer stage: with fat layer exposed Qualified Code(s): L97.902 - Non-pressure chronic ulcer of unspecified part of unspecified lower leg with fat layer exposed Status: Acute Plan Dressing treatment provided with Hydrofera-blue and bordered foam cover, supplies provided for dressing changes Recommend dressing changes QOD, dependent upon drainage F/u with wound care upon release from hospital Note dictation has been delayed from my end as this my first time writing within the acute side of EMR. Additional details are hard to recall at this point given length of time since I saw the patient.
== END 2023-11-24 11:45 | DRG 329 ==
LOC: ED 14:45 → AC 15:36 → ICU 15:49
PROVIDERS: Student in an Organized Health Care Education/Training Program; Surgery; Admitting Provider Hospitalist; Emergency Provider Emergency Medicine; PCP Family Medicine; Referring Provider Emergency Medicine; Visit Provider Hospitalist
PROC: 0DB80ZZ Excision of Small Intestine, Open Approach (ICD-10-PCS; CPT 49000; principal; 2023-11-20 17:00)
DX: K42.0 Umbilical hernia with obstruction, without gangrene (principal); J18.9 Pneumonia, unspecified organism; E87.20 Acidosis, unspecified; I24.89 Other forms of acute ischemic heart disease; K55.9 Vascular disorder of intestine, unspecified; I48.91 Unspecified atrial fibrillation; I25.10 Atherosclerotic heart disease of native coronary artery without angina pectoris; I10 Essential (primary) hypertension; E03.9 Hypothyroidism, unspecified; Z95.0 Presence of cardiac pacemaker; Z79.01 Long term (current) use of anticoagulants; Z66 Do not resuscitate; Z95.5 Presence of coronary angioplasty implant and graft
CPT/HCPCS: 36415; 36430; 71045; 74177; 80048; 80053; 81001; 82550; 83605; 83690; 83735; 83880; 84145; 84484; 85025; 85610; 86850; 86900; 86901; 86927; 87040; 87077; 87086; 87154; 87186; 87797; 93005; 93010; 96365; 96375; 97162; 97166; 97530; 97535; 99285; P9016; J0136; J1100; J1644; J2270; J2405; J2543; J2704; J3010; J3430; Q9967

== ENCOUNTER → 2023-12-13 13:43 | Outpatient (CLI) | payer OTHER, SELFPAY ==
[2023-11-20 21:34] VITALS: BMI 24.7
== END ==
LOC: WC 14:25
PROVIDERS: PCP Family Medicine; Referring Provider Internal Medicine; Visit Provider Surgery
DX: Z48.815 Encounter for surgical aftercare following surgery on the digestive system (principal); I87.2 Venous insufficiency (chronic) (peripheral); L97.312 Non-pressure chronic ulcer of right ankle with fat layer exposed; L97.322 Non-pressure chronic ulcer of left ankle with fat layer exposed; I73.9 Peripheral vascular disease, unspecified
CPT/HCPCS: 11042; 11045; 80053; 85025; 87070; 87075; 87077; 87186; 87205; 99203; 99214

== ENCOUNTER → 2023-12-13 16:43 | Outpatient (ROUT) | payer OTHER, SELFPAY ==
[2023-11-20 21:34] VITALS: BMI 24.7
[2023-12-13 16:50] LABS: Add Manual Diff / Slide Review NO; Basophils Absolute Auto 0 /uL (0-100); Basophils Percent Auto 0.5 % (0-2); Eosinophils Absolute Auto 100 /uL (0-450); Eosinophils Percent Auto 1.3 % (2-4); Hematocrit 34.8 % (36-46); Hemoglobin 11.4 g/dL (12.0-16.0); Lymphocytes Absolute Auto 700 /uL (1100-4500); Lymphocytes Percent Auto 10.3 % (25-40); Mean Corpuscular HGB Conc 32.8 % (30-36); Mean Corpuscular Volume 91.2 fL (80-100); Monocytes Absolute Auto 400 /uL (0-900); Monocytes Percent Auto 6.3 % (3-14); Neutrophils Absolute Auto 5600 /uL (1500-7000); Neutrophils Percent Auto 81.6 % (50-75); Platelet Count 269 X10^3/uL (150-400); Red Blood Cell Count 3.81 X10^6/uL (4.0-5.2); Red Cell Distribution Width 16.3 % (11.6-14.8); White Blood Cell Count 6.8 X10^3/uL (4.5-11.0)
[2023-12-13 17:15] LABS: Alanine Aminotransferase 20 IU/L (<35); Albumin Globulin Ratio 1.1 (1.0-2.8); Alkaline Phosphatase 114 U/L (38-126); Aspartate Aminotransferase 31 IU/L (14-36); BUN Creatinine Ratio 30.2 (6-22); Bilirubin Total 0.9 mg/dL (0.2-1.3); Blood Urea Nitrogen 16 mg/dL (7-17); Calcium 11.3 mg/dL (8.4-10.2); Carbon Dioxide 30 mmol/L (22-32); Chloride 104 mmol/L (98-107); Estimated Glomerular Filt Rate > 60 mL/min (>60); Globulin 2.7 g/dL (1.7-4.1); Glucose 97 mg/dL (80-110); HEMOLYSIS < 15 (0-50); Potassium 3.3 mmol/L (3.4-5.1); Sodium 137 mmol/L (137-145); Total Protein 5.7 g/dL (6.3-8.2)
== END ==
PROVIDERS: PCP Family Medicine; Visit Provider Nurse Practitioner
DX: Z48.815 Encounter for surgical aftercare following surgery on the digestive system (principal)
CPT/HCPCS: 80053; 85025

== ENCOUNTER 2023-12-20 15:52 | Inpatient (IN) | payer OTHER, SELFPAY ==
[2023-11-20 21:34] VITALS: BMI 24.7
[2023-12-20] VITALS (15 sets, daily range): BP systolic 121–185; BP diastolic 58–91; PULSE 64–71; RESP 18–35; TEMP 36.4–37.3; O2SAT 88–97; BMI 24.3
--- NOTE | 2023-12-20 16:14 | DI.RAD.S_ITS ---
PROCEDURE: XR CHEST 1V INDICATIONS: Shortness of breath TECHNIQUE: One view of the chest was acquired. COMPARISON: [facility], CR, XR CHEST 1V, 11/23/2023, 9:39. FINDINGS: Surgical changes and devices: Left cardiac pacemaker. Left axillary clips. Lungs and pleura: Diffuse interstitial prominence. Mild vascular congestion. No pneumothorax. No dense consolidation. Suspected small bilateral pleural effusions larger on the left. Mediastinum: The cardiomediastinal contours remain stable with enlargement of the cardiac silhouette. Bones and chest wall: No suspicious bony lesions. Overlying soft tissues appear unremarkable. IMPRESSION: Cardiomegaly with findings suggestive of pulmonary edema/CHF. No dense consolidation seen. Dictated by: Tony Bauer M.D. on 12/20/2023 at 17:23 Approved by: Tony Bauer M.D. on 12/20/2023 at 17:24
[2023-12-20 17:05] LABS: Add Manual Diff / Slide Review NO; Basophils Absolute Auto 0 /uL (0-100); Basophils Percent Auto 0.2 % (0-2); Eosinophils Absolute Auto 0 /uL (0-450); Hematocrit 33.8 % (36-46); Hemoglobin 11.1 g/dL (12.0-16.0); Lymphocytes Absolute Auto 800 /uL (1100-4500); Lymphocytes Percent Auto 4.7 % (25-40); Mean Corpuscular HGB Conc 32.9 % (30-36); Monocytes Absolute Auto 700 /uL (0-900); Monocytes Percent Auto 4.5 % (3-14); Neutrophils Absolute Auto 15200 /uL (1500-7000); Neutrophils Percent Auto 90.6 % (50-75); Platelet Count 292 X10^3/uL (150-400); Red Blood Cell Count 3.72 X10^6/uL (4.0-5.2); White Blood Cell Count 16.7 X10^3/uL (4.5-11.0)
[2023-12-20 17:05] LABS: Influenza A - CEPHEID Flu A NEGATIVE (NEGATIVE); Influenza B - CEPHEID Flu B NEGATIVE (NEGATIVE); Respiratory Syncytial Virus Negative (Negative)
[2023-12-20 17:06] LABS: COVID-19 CEPHEID 4-PLEX PCR Negative (Negative)
[2023-12-20 17:18] LABS: INR 2.4 (0.9-1.3); Prothrombin Time 28.1 SECONDS (9.4-12.5)
[2023-12-20 17:24] LABS: Lactate (Lactic Acid) 1.5 mmol/L (0.7-2.1)
[2023-12-20 17:25] LABS: Alanine Aminotransferase 17 IU/L (<35); Albumin 3.3 g/dL (3.5-5.0); Alkaline Phosphatase 105 U/L (38-126); Aspartate Aminotransferase 29 IU/L (14-36); BUN Creatinine Ratio 30.5 (6-22); Bilirubin Total 1.4 mg/dL (0.2-1.3); Blood Urea Nitrogen 18 mg/dL (7-17); Calcium 11.4 mg/dL (8.4-10.2); Carbon Dioxide 31 mmol/L (22-32); Chloride 102 mmol/L (98-107); Estimated Glomerular Filt Rate > 60 mL/min (>60); Globulin 3.3 g/dL (1.7-4.1); Glucose 125 mg/dL (80-110); HEMOLYSIS < 15 (0-50); Potassium 3.1 mmol/L (3.4-5.1); Sodium 139 mmol/L (137-145); Total Protein 6.6 g/dL (6.3-8.2)
[2023-12-20 17:36] LABS: NT-proBNP (BNP-Adult 18+) 16400 pg/mL (<450); Troponin I 0.092 ng/mL (0.01-0.034)
--- NOTE | 2023-12-20 18:37 | ED_ITS ---
HPI - Weakness General Chief complaint: Weakness Stated complaint: post wound care/breathing issues Time Seen by Provider: 12/20/23 17:58 Source: patient Mode of arrival: Wheelchair History of Present Illness HPI Narrative: 88-year-old female with history of coronary artery disease, atrial fibrillation on warfarin, pacemaker, hypothyroidism, previous history of breast cancer presents from wound care clinic for low oxygen saturations. History is obtained mostly from triage note and nursing staff at bedside as patient is currently very confused and can not provide any meaningful history. There is a son at bedside, but he states he does not know what is going on or why his mother is in the emergency department. Nursing states that patient was at Wound Care appointment and reported shortness of breath. Initial pulse ox in triage 88% on room air and patient was placed on supplemental nasal cannula. Per nursing report wound care stated that patient's wounds were at baseline and requested that bandages not be changed or manipulated Patient is confused, slightly mumbling, drifts off in the middle of her sentences. Related Data Home Medications Medication Instructions Recorded Confirmed acetaminophen 500 mg tablet 1,000 mg PO TID 11/20/23 12/20/23 levothyroxine 50 mcg tablet 50 mcg PO DAILY 11/20/23 12/20/23 losartan 25 mg tablet 12.5 mg PO BEDTIME 11/20/23 12/20/23 metoprolol succinate 50 mg 50 mg PO QPM 11/20/23 12/20/23 tablet,extended release 24 hr ondansetron 4 mg disintegrating 4 mg PO Q6H PRN nausea/vomiting 11/20/23 12/20/23 tablet sennosides 8.6 mg tablet (senna) 8.6 mg PO BEDTIME 11/20/23 12/20/23 tizanidine 2 mg tablet 1 mg PO Q6HR PRN Muscle Spasm 11/20/23 12/20/23 warfarin 1 mg tablet 1.5 mg PO QPM 11/20/23 12/20/23 atorvastatin 40 mg tablet 40 mg PO BEDTIME 12/20/23 12/20/23 bisacodyl 10 mg rectal suppository 10 mg [place] DAILY PRN Constipation 12/20/23 12/20/23 bisacodyl 5 mg tablet 5 mg PO DAILY PRN Constipation 12/20/23 12/20/23 polyethylene glycol 3350 17 17 g PO DAILY PRN Constipation 12/20/23 12/20/23 gram/dose oral powder (Miralax) Previous Rx's Medication Instructions Recorded oxycodone 5 mg tablet 5 mg PO Q4HR PRN Pain #30 tabs 11/24/23 Allergies Allergy/AdvReac Type Severity Reaction Status Date / Time No Known Drug Allergies Allergy Verified 12/09/23 15:05 Review of Systems Review of Systems Narrative: Limited due to patient condition Patient History Medical History Breast cancer Hyponatremia Hypothyroid Hyperlipidemia Congestive heart failure Atrial fibrillation Pathologic fracture Hiatal hernia Surgical History H/O mastectomy History of cholecystectomy Social History household members: children Smoking Status: Never smoker alcohol intake: current Smoking Status: Never smoker alcohol intake frequency: 0-2 drinks per day Substance Use Type: does not use Exam Initial Vital Signs Initial Vital Signs: Vital Signs Temperature 99.2 F 12/20/23 16:01 Pulse Rate 65 12/20/23 16:01 Respiratory Rate 18 12/20/23 16:01 Blood Pressure 152/77 H 12/20/23 16:01 Pulse Oximetry 88 L 12/20/23 16:01 Oxygen Delivery Method Room Air 12/20/23 16:01 Const: Awake, debilitated, frail, no distress, appears chronically unwell Cardiac: regular rate, regular rhythm RESP: Unlabored, on nasal cannula, inspiratory crackles bilateral basis GI: Atraumatic, soft, nontender Skin: Warm, Dry, intact, legs covered and clean bandages Neuro: AO x1, CN II-XII grossly intact, moves all extremities Course Orders Ordered: ED Orders 12/20/23 18:38 CT head/brain wo con Stat 12/20/23 19:20 UA Complete [Urinalysis and Microscopic] Stat Urine Culture Stat 12/20/23 19:25 Blood Culture Stat 12/20/23 20:03 Lactate (Lactic Acid) Stat Acetaminophen (Acetaminophen 325 Mg Tablet) 975 mg PO TID DIANA Last Admin: 12/20/23 21:51 Dose: 975 mg Documented By: AT Albuterol (Albuterol 2.5 Mg/3 Ml Neb (Adult)) 2.5 mg INH [id number] PRN PRN Reason: Dyspnea Benzocaine (Benzocaine/Menthol 1 Maribell Pkt) 1 each PO Q4HR PRN PRN Reason: Sore Throat Calcium Carbonate (Calcium Carbonate 500 Mg Tab) 1,000 mg PO Q4HR PRN PRN Reason: Dyspepsia Furosemide (Furosemide 40 Mg/4 Ml Vial) 40 mg IV Q12H DIANA Hydralazine HCl (Hydralazine 20 Mg/Ml Vial) 10 mg IV Q6HR PRN PRN Reason: SBP>= 160 or DBP >=110 Ceftriaxone Sodium 2,000 mg/ (Sodium Chloride) 100 mls @ 200 mls/hr IV Q24H [facility] Last Infusion: 12/20/23 22:41 Dose: Infused Documented By: Admin: 12/20/23 21:51 Dose: 200 mls/hr Documented By: AT Levothyroxine Sodium (Levothyroxine 50 Mcg Tablet) 50 mcg PO 0600 DIANA Losartan Potassium (Losartan 25 Mg Tablet) 12.5 mg PO BEDTIME [facility] Last Admin: 12/20/23 21:51 Dose: 12.5 mg Documented By: AT Melatonin (Melatonin 3 Mg Tablet) 9 mg PO BEDTIME PRN PRN Reason: insomnia Metoprolol Succinate (Metoprolol Er 50 Mg Tablet) 50 mg PO QPM [facility] Naloxone HCl (Naloxone 0.4 Mg/Ml Vial) 0.2 mg IV Q2MIN PRN PRN Reason: Opiate Reversal Ondansetron HCl (Ondansetron 4 Mg Odt) 4 mg PO Q6H PRN PRN Reason: nausea/vomiting Ondansetron HCl (Ondansetron 4 Mg/2 Ml Inj) 4 mg IV Q8HR PRN PRN Reason: Nausea And Vomiting Oxycodone HCl (Oxycodone Ir 5 Mg Tablet) 5 mg PO Q4HR PRN PRN Reason: Pain Sennosides (Sennosides 8.6 Mg Tablet) 8.6 mg PO BEDTIME [facility] Last Admin: 12/20/23 21:51 Dose: 8.6 mg Documented By: AT Tizanidine HCl (Tizanidine 4 Mg Tablet) 1 mg PO Q6HR PRN PRN Reason: Muscle Spasm Warfarin Sodium (Warfarin 1 Mg Tablet) 1.5 mg PO QPM [facility] Discontinued Medications Furosemide (Furosemide 40 Mg/4 Ml Vial) 40 mg IV NOW ONE Stop: 12/20/23 18:18 Last Admin: 12/20/23 19:03 Dose: 40 mg Documented By: SB Ceftriaxone Sodium 1,000 mg/ (Sodium Chloride) 100 mls @ 200 mls/hr IV NOW ONE Stop: 12/20/23 19:47 Last Admin: 12/20/23 20:15 Dose: Not Given Documented By: DK Non-Formulary Medication (Acetaminophen) 1,000 mg PO TID DIANA Potassium Chloride (Potassium Chloride 20 Meq Tab) 40 meq PO NOW ONE Stop: 12/21/23 00:39 Last Admin: 12/21/23 00:53 Dose: 40 meq Documented By: AT Vital Signs Vital signs: Vital Signs - 8 hr 12/20/23 18:30 12/20/23 19:03 12/20/23 19:30 Pulse Rate 64 67 64 Respiratory Rate 23 34 H Blood Pressure Pulse Oximetry 96 95 97 Oxygen Delivery Method Oxygen Flow Rate 12/20/23 19:32 12/20/23 19:32 12/20/23 20:00 Pulse Rate 65 67 Respiratory Rate 25 H 27 H Blood Pressure 185/84 H Pulse Oximetry 95 92 Oxygen Delivery Method Nasal Cannula Nasal Cannula Oxygen Flow Rate 2.5 3 12/20/23 20:01 12/20/23 20:01 Pulse Rate 64 Respiratory Rate 26 H Blood Pressure 157/91 H Pulse Oximetry 90 L Oxygen Delivery Method Nasal Cannula Oxygen Flow Rate 3 MDM - Weakness Differential Diagnosis Differential diagnosis: Likely acute myocardial infarction, anemia and hypoglycemia Lab Data 12/20/23 16:45 12/20/23 16:45 Labs: Lab Results 12/20/23 12/20/23 12/20/23 Range/Units 16:14 16:45 18:16 WBC 16.7 H (4.5-11.0) X10^3/uL RBC 3.72 L (4.0-5.2) X10^6/uL Hgb 11.1 L (12.0-16.0) g/dL Hct 33.8 L (36-46) % MCV 91.0 (80-100) fL MCH 30.0 (26-34) PG MCHC 32.9 (30-36) % RDW 17.0 H (11.6-14.8) % Plt Count 292 (150-400) X10^3/uL Neut % (Auto) 90.6 H (50-75) % Lymph % (Auto) 4.7 L (25-40) % [place] % (Auto) 4.5 (3-14) % Eos % (Auto) 0.0 L (2-4) % Baso % (Auto) 0.2 (0-2) % Neut # (Auto) 94356 H (7742-4996) /uL Lymph # (Auto) 800 L (1219-3837) /uL [place] # (Auto) 700 (0-900) /uL Eos # (Auto) 0 (0-450) /uL Baso # (Auto) 0 (0-100) /uL PT 28.1 H (9.4-12.5) SECONDS INR 2.4 H (0.9-1.3) Sodium 139 (137-145) mmol/L Potassium 3.1 L (3.4-5.1) mmol/L Chloride 102 (98-107) mmol/L Carbon Dioxide 31 (22-32) mmol/L BUN 18 H (7-17) mg/dL Creatinine 0.59 (0.52-1.04) mg/dL Estimated GFR > 60 (>60) mL/min BUN/Creatinine Ratio 30.5 H (6-22) Glucose 125 H (80-110) mg/dL Lactate 1.5 (0.7-2.1) mmol/L Calcium 11.4 H (8.4-10.2) mg/dL Total Bilirubin 1.4 H (0.2-1.3) mg/dL AST 29 (14-36) IU/L ALT 17 (<35) IU/L Alkaline Phosphatase 105 (38-126) U/L Troponin I 0.092 H (0.01-0.034) ng/mL NT-Pro-B Natriuret Pep 02431 H (<450) pg/mL Total Protein 6.6 (6.3-8.2) g/dL Albumin 3.3 L (3.5-5.0) g/dL Globulin 3.3 (1.7-4.1) g/dL Albumin/Globulin Ratio 1.0 (1.0-2.8) Triglycerides 67 (35-150) mg/dL Cholesterol 144 (140-199) mg/dL LDL Cholesterol, Calc 58 (<100) mg/dL HDL Cholesterol 73 H (40-60) mg/dL TSH 0.856 (0.47-4.68) uIU/mL Urine Color Urine Appearance Urine pH (4.5-8.0) Ur Specific [place] (1.000-1.035) Urine Protein (Negative) Urine Glucose (UA) (Negative) g/dL Urine Ketones (NEGATIVE) Urine Occult Blood (Negative) Urine Nitrate (Negative) Urine Bilirubin (NEGATIVE) Urine Urobilinogen (0.2) E.U./dL Ur Leukocyte Esterase (NEGATIVE) Urine RBC (0-5/HPF) Urine WBC (0-5/HPF) Ur Squamous Epith Cells (0-5/HPF) Urine Bacteria (None) Ur Culture Indicated? Vol Urine Centrifuged SARS-CoV-2 (PCR) Negative (Negative) Influenza A (RT-PCR) Flu a negative (NEGATIVE) Influenza B (RT-PCR) Flu b negative (NEGATIVE) RSV (PCR) Negative (Negative) 12/20/23 12/20/23 Range/Units 19:20 20:03 WBC (4.5-11.0) X10^3/uL RBC (4.0-5.2) X10^6/uL Hgb (12.0-16.0) g/dL Hct (36-46) % MCV (80-100) fL MCH (26-34) PG MCHC (30-36) % RDW (11.6-14.8) % Plt Count (150-400) X10^3/uL Neut % (Auto) (50-75) % Lymph % (Auto) (25-40) % [place] % (Auto) (3-14) % Eos % (Auto) (2-4) % Baso % (Auto) (0-2) % Neut # (Auto) (4436-3476) /uL Lymph # (Auto) (4218-5502) /uL [place] # (Auto) (0-900) /uL Eos # (Auto) (0-450) /uL Baso # (Auto) (0-100) /uL PT (9.4-12.5) SECONDS INR (0.9-1.3) Sodium (137-145) mmol/L Potassium (3.4-5.1) mmol/L Chloride (98-107) mmol/L Carbon Dioxide (22-32) mmol/L BUN (7-17) mg/dL Creatinine (0.52-1.04) mg/dL Estimated GFR (>60) mL/min BUN/Creatinine Ratio (6-22) Glucose (80-110) mg/dL Lactate 1.4 (0.7-2.1) mmol/L Calcium (8.4-10.2) mg/dL Total Bilirubin (0.2-1.3) mg/dL AST (14-36) IU/L ALT (<35) IU/L Alkaline Phosphatase (38-126) U/L Troponin I (0.01-0.034) ng/mL NT-Pro-B Natriuret Pep (<450) pg/mL Total Protein (6.3-8.2) g/dL Albumin (3.5-5.0) g/dL Globulin (1.7-4.1) g/dL Albumin/Globulin Ratio (1.0-2.8) Triglycerides (35-150) mg/dL Cholesterol (140-199) mg/dL LDL Cholesterol, Calc (<100) mg/dL HDL Cholesterol (40-60) mg/dL TSH (0.47-4.68) uIU/mL Urine Color Yellow Urine Appearance Cloudy Urine pH 7.5 (4.5-8.0) Ur Specific [place] 1.020 (1.000-1.035) Urine Protein 1+ H (Negative) Urine Glucose (UA) Negative (Negative) g/dL Urine Ketones Negative (NEGATIVE) Urine Occult Blood 3+ H (Negative) Urine Nitrate Negative (Negative) Urine Bilirubin Negative (NEGATIVE) Urine Urobilinogen 1.0 (0.2) E.U./dL Ur Leukocyte Esterase 2+ H (NEGATIVE) Urine RBC 10-30/hpf H (0-5/HPF) Urine WBC 5-10/hpf H (0-5/HPF) Ur Squamous Epith Cells 0-1 /hpf (0-5/HPF) Urine Bacteria Moderate (10-30) H (None) Ur Culture Indicated? Specimen cultured Vol Urine Centrifuged 10ml (spun) SARS-CoV-2 (PCR) (Negative) Influenza A (RT-PCR) (NEGATIVE) Influenza B (RT-PCR) (NEGATIVE) RSV (PCR) (Negative) ECG Data Interpretation: Ventricular paced rhythm at 65 beats per minute. No Sgarbossa criteria. Artifact present. Unchanged from previous EKG 11/20/2023 MDM Narrative Medical decision making narrative: Chronically unwell appearing patient presenting for shortness of breath, found to be hypoxic on room air. Resting comfortably on nasal cannula, patient mumbles and drifts off when spoken to. Chest x-ray shows signs and symptoms of volume overload/congestive heart failure. Laboratory work is reviewed. Has leukocytosis 16.7. BNP is markedly elevated. There is a mild elevation in troponins, however patient's EKG is a paced rhythm without Sgarbossa criteria, this is likely secondary to demand from volume overload and previous hypoxia. Blood cultures and lactic acid drawn and sent to lab. We will give empiric Rocephin and Lasix, however we will not give fluids due to current volume overload status. CT of the brain negative for acute findings. Urinalysis does show leukocyte esterase and signs of infection. Patient will be admitted to the hospital for further management and treatment. Discharge Plan Departure Patient Disposition: Admitted As Inpatient Clinical Impression: CHF (congestive heart failure), Acute UTI, AMS (altered mental status) Admit Date/Time: 12/20/23 20:06 Admit Provider: Mario Bosch
--- NOTE | 2023-12-20 18:38 | DI.CT.S_ITS ---
PROCEDURE: CT HEAD/BRAIN WO CON INDICATIONS: AMS - CONFUSION TECHNIQUE: Noncontrast 4.5 mm thick angled axial sections acquired from the foramen magnum to the vertex, with coronal and sagittal reformats. For radiation dose reduction, the following was used: automated exposure control, adjustment of mA and/or kV according to patient size. COMPARISON: None. FINDINGS: Image quality: Diagnostic. CSF spaces: Basal cisterns are patent. No extra-axial fluid collections. The ventricles are symmetric in size and shape. Brain: No intracranial bleeds or masses. There is cerebral volume loss for age, with resultant ventricular and sulcal prominence. There are periventricular and deep white matter chronic small vessel ischemic changes. There is intracranial internal carotid artery atherosclerosis. Skull and face: Calvarium and visualized facial bones appear intact, without acute calvarial fractures. Sinuses: Visualized sinuses and mastoids are clear. IMPRESSION: 1. CT head without acute intracranial abnormalities or acute calvarial fractures. 2. Age-related senescent changes and sequela of chronic small vessel ischemic disease. Dictated by: Tony Bauer M.D. on 12/20/2023 at 19:42 Approved by: Tony Bauer M.D. on 12/20/2023 at 19:43
[2023-12-20] MEDS: FUROSEMIDE 40 MG/4 ML VIAL IV (19:03)
[2023-12-20 19:42] LABS: Appearance Urine UA CLOUDY; Bilirubin Urine UA NEGATIVE (NEGATIVE); Color Urine UA YELLOW; Glucose Urine UA NEGATIVE (Negative); Ketones Urine UA NEGATIVE (NEGATIVE); Leukocyte Esterase Urine UA 2+ (NEGATIVE); Nitrite Urine UA NEGATIVE (Negative); Occult Blood Urine UA 3+ (Negative); Protein Urine UA 1+ (Negative); pH Urine UA 7.5 (4.5-8.0)
[2023-12-20 19:49] LABS: Bacteria Urine Moderate (10-30); Culture Indicated Urine Specimen Cultured; RBC Urine 10-30/HPF (0-5/HPF); Squamous Epithelial Cell Urine 0-1 /HPF (0-5/HPF); Urine Volume 10mL (spun); WBC Urine 5-10/HPF (0-5/HPF)
--- NOTE | 2023-12-20 20:14 | PC.NURSE ---
MEDICAID BUSINESS ANALYST note: Patient's son, Maximino Collins, left his phone number: [phone]. Will be back in the morning
[2023-12-20 20:33] LABS: Lactate (Lactic Acid) 1.4 mmol/L (0.7-2.1)
[2023-12-20] MEDS: ACETAMINOPHEN 325 MG TABLET 975 MG PO (21:51)
[2023-12-20] MEDS: SENNOSIDES 8.6 MG TABLET PO (21:51)
[2023-12-20] MEDS: LOSARTAN 25 MG TABLET 12.5 MG PO (21:51)
[2023-12-20] MEDS: cefTRIAXone 2,000 MG in SODIUM CHLORIDE 0.9% 100 ML 200 MG IV (21:51)
[2023-12-20 21:53] LABS: Cholesterol 144 mg/dL (140-199); HDL Cholesterol 73 mg/dL (40-60); LDL Cholesterol Calculated 58 mg/dL (<100); Triglycerides 67 mg/dL (35-150)
--- NOTE | 2023-12-20 22:28 | P.HP_ITS ---
History of Present Illness History of Present Illness Chief complaint: post wound care/breathing issues Narrative: 88 years old female with history of hypertension, paroxysmal atrial fibrillation on warfarin, COPD, hypertrophic cardiomyopathy, referred from wound clinic today after she was found to be short of breath, fatigue, cough, chest tightness, lightheadedness and dizziness for the last 2 weeks getting progressively worse. She also was reporting swelling of her extremities. The patient has bilateral wounds lower extremities and follow-up with wound clinic. Today changed dressing and there was no any infection noted. In the ER the patient was found to be hypoxic requiring oxygen supplements. She also was noted to have CHF exacerbation and UTI. She was given ceftriaxone 1 g IV, Lasix 40 mg IV. Initial laboratory shows WBC 16.7, INR 2.4, potassium 3.1, blood sugar 125, troponin 0.09, BNP 54338 from 2960, respiratory panel negative, UA positive for leukoesterase 2+, WBC 5?10, bacteria moderate, chest x-ray shows cardiomegaly with findings suggestive for pulmonary edema. Head CT unremarkable. [facility] Medical History (Updated 12/20/23 @ 20:10 by Mario Bosch MD) Breast cancer Hyponatremia Hypothyroid Hyperlipidemia Congestive heart failure Atrial fibrillation Pathologic fracture Hiatal hernia Surgical History (Updated 11/20/23 @ 17:24 by Ray Schaeffer MD) H/O mastectomy History of cholecystectomy Social History household members: children Smoking Status: Never smoker Meds Home Medications and Allergies Home Medications Medication Instructions Recorded Confirmed Type acetaminophen 500 mg tablet 1,000 mg PO TID 11/20/23 12/09/23 History dexamethasone 2 mg tablet 2 mg PO DAILY 11/20/23 12/09/23 History levothyroxine 50 mcg tablet 50 mcg PO DAILY 11/20/23 12/20/23 History losartan 25 mg tablet 12.5 mg PO BEDTIME 11/20/23 12/20/23 History metoprolol succinate 50 mg 50 mg PO QPM 11/20/23 12/09/23 History tablet,extended release 24 hr ondansetron 4 mg disintegrating 4 mg PO Q6H PRN nausea/vomiting 11/20/23 12/09/23 History tablet sennosides 8.6 mg tablet (senna) 8.6 mg PO BEDTIME 11/20/23 12/09/23 History tizanidine 2 mg tablet 1 mg PO Q6HR PRN Muscle Spasm 11/20/23 12/09/23 History warfarin 1 mg tablet 1.5 mg PO QPM 11/20/23 12/20/23 History oxycodone 5 mg tablet 5 mg PO Q4HR PRN Pain #30 tabs 11/24/23 12/09/23 Rx atorvastatin 40 mg tablet 40 mg PO DAILY 12/20/23 12/20/23 History Allergies Allergy/AdvReac Type Severity Reaction Status Date / Time No Known Drug Allergies Allergy Verified 12/09/23 15:05 Review of Systems Review of Systems ROS: Yes All systems reviewed with the patient and are negative except as otherwise documented Constitutional Constitutional: Reports as per HPI and Reports system reviewed and no additional complaints, except as documented Eyes Eyes: Reports as per HPI and Reports system reviewed and no additional complaints, except as documented ENT Ears, Nose, Mouth, and Throat: Yes as per HPI and Yes system reviewed and no additional complaints, except as documented Cardiovascular Cardiovascular: Reports system reviewed and no additional complaints, except as documented Respiratory Respiratory: Reports system reviewed and no additional complaints, except as documented Gastrointestinal Gastrointestinal: Reports system reviewed and no additional complaints, except as documented Genitourinary Genitourinary: Reports system reviewed and no additional complaints, except as documented Musculoskeletal Musculoskeletal: Reports system reviewed and no additional complaints, except as documented, Reports abnormal gait and Reports numbness Neurologic Neurologic: Reports system reviewed and no additional complaints, except as documented, Reports abnormal gait, Reports confusion and Reports numbness Psychiatric Psychiatric: Reports system reviewed and no additional complaints, except as documented and Reports confusion Exam Vital Signs (past 8 hours): - 12/20/23 16:01 12/20/23 17:27 12/20/23 17:30 Temperature 99.2 F Pulse Rate 65 64 64 Respiratory Rate 18 25 H 25 H Blood Pressure 152/77 H Pulse Oximetry 88 L 95 95 Oxygen Delivery Method Room Air Nasal Cannula Oxygen Flow Rate 4 12/20/23 17:30 12/20/23 18:00 12/20/23 18:00 Temperature Pulse Rate 64 Respiratory Rate 35 H Blood Pressure 168/71 H 175/76 H Pulse Oximetry 95 Oxygen Delivery Method Oxygen Flow Rate 12/20/23 18:30 12/20/23 19:03 12/20/23 19:30 Temperature Pulse Rate 64 67 64 Respiratory Rate 23 34 H Blood Pressure Pulse Oximetry 96 95 97 Oxygen Delivery Method Oxygen Flow Rate 12/20/23 19:32 12/20/23 19:32 12/20/23 20:00 Temperature Pulse Rate 65 67 Respiratory Rate 25 H 27 H Blood Pressure 185/84 H Pulse Oximetry 95 92 Oxygen Delivery Method Nasal Cannula Nasal Cannula Oxygen Flow Rate 2.5 3 12/20/23 20:01 12/20/23 20:01 12/20/23 20:30 Temperature Pulse Rate 64 65 Respiratory Rate 26 H 18 Blood Pressure 157/91 H Pulse Oximetry 90 L 89 L Oxygen Delivery Method Nasal Cannula Nasal Cannula Oxygen Flow Rate 3 3 12/20/23 20:31 12/20/23 20:31 12/20/23 21:00 Temperature Pulse Rate 65 64 Respiratory Rate 22 21 Blood Pressure 121/58 L Pulse Oximetry 89 L 90 L Oxygen Delivery Method Nasal Cannula Nasal Cannula Oxygen Flow Rate 3 3 12/20/23 21:01 12/20/23 21:01 12/20/23 21:10 Temperature Pulse Rate 64 Respiratory Rate 22 Blood Pressure 150/65 H Pulse Oximetry 89 L Oxygen Delivery Method Nasal Cannula Nasal Cannula Oxygen Flow Rate 3 3 12/20/23 21:20 Temperature 97.5 F L Pulse Rate 71 Respiratory Rate 18 Blood Pressure 130/63 Pulse Oximetry 95 Oxygen Delivery Method Oxygen Flow Rate 0 Oxygen Delivery Method Nasal Cannula Oxygen Flow Rate 0 Const General: cooperative, comfortable and well developed Orientation: alert and oriented x3 HENMT Head: normal to inspection, normocephalic and atraumatic Face and sinus: normal facial exam Mouth: oral mucosae normal and moist mucous membranes Throat: posterior oropharynx normal Eyes General: appearance normal, both eyes and all related structures Pupils: PERRL EOM: EOM intact bilaterally Neck Neck: normal visual inspection and full ROM Chest Chest: normal inspection of the chest Resp Effort & Inspection: normal respiratory effort and able to speak in complete sentences Auscultation: clear to auscultation bilaterally Cardio Palpation: normal PMI Rate: regular rate Rhythm: regular rhythm Heart Sounds: S1 normal and S2 normal GI Inspection: normal to inspection Palpation: soft and no hepatosplenomegaly Auscultation: normal bowel sounds Skin General: no rashes or lesions noted Lesions: no lesions Rashes: no rashes Trauma: no lacerations or abrasions Neuro General: patient alert, patient awake, patient oriented x3 and no focal motor deficits Cranial Nerves: CN's II-XI intact bilaterally Cognition: normal cognition Speech: speech normal Gait: normal gait Motor: muscle tone normal throughout Sensory Exam: no sensory deficits noted Extrem General: full ROM and no calf tenderness Psych Appearance: grossly normal Mental Status: mental status grossly normal Speech and Movement: speech and movement normal Objective Labs 12/20/23 16:45 12/20/23 16:45 Labs: Laboratory Results - last 24 hr 12/20/23 12/20/23 12/20/23 16:14 16:45 19:20 WBC 16.7 H RBC 3.72 L Hgb 11.1 L Hct 33.8 L MCV 91.0 MCH 30.0 MCHC 32.9 RDW 17.0 H Plt Count 292 Neut % (Auto) 90.6 H Lymph % (Auto) 4.7 L [place] % (Auto) 4.5 Eos % (Auto) 0.0 L Baso % (Auto) 0.2 Neut # (Auto) 06002 H Lymph # (Auto) 800 L [place] # (Auto) 700 Eos # (Auto) 0 Baso # (Auto) 0 PT 28.1 H INR 2.4 H Sodium 139 Potassium 3.1 L Chloride 102 Carbon Dioxide 31 BUN 18 H Creatinine 0.59 Estimated GFR > 60 BUN/Creatinine Ratio 30.5 H Glucose 125 H Lactate 1.5 Calcium 11.4 H Total Bilirubin 1.4 H AST 29 ALT 17 Alkaline Phosphatase 105 Troponin I 0.092 H NT-Pro-B Natriuret Pep 35008 H Total Protein 6.6 Albumin 3.3 L Globulin 3.3 Albumin/Globulin Ratio 1.0 Triglycerides 67 Cholesterol 144 LDL Cholesterol, Calc 58 HDL Cholesterol 73 H Urine Color Yellow Urine Appearance Cloudy Urine pH 7.5 Ur Specific [place] 1.020 Urine Protein 1+ H Urine Glucose (UA) Negative Urine Ketones Negative Urine Occult Blood 3+ H Urine Nitrate Negative Urine Bilirubin Negative Urine Urobilinogen 1.0 Ur Leukocyte Esterase 2+ H Urine RBC 10-30/hpf H Urine WBC 5-10/hpf H Ur Squamous Epith Cells 0-1 /hpf Urine Bacteria Moderate (10-30) H Ur Culture Indicated? Specimen cultured Vol Urine Centrifuged 10ml (spun) SARS-CoV-2 (PCR) Negative Influenza A (RT-PCR) Flu a negative Influenza B (RT-PCR) Flu b negative RSV (PCR) Negative 12/20/23 20:03 WBC RBC Hgb Hct MCV MCH MCHC RDW Plt Count Neut % (Auto) Lymph % (Auto) [place] % (Auto) Eos % (Auto) Baso % (Auto) Neut # (Auto) Lymph # (Auto) [place] # (Auto) Eos # (Auto) Baso # (Auto) PT INR Sodium Potassium Chloride Carbon Dioxide BUN Creatinine Estimated GFR BUN/Creatinine Ratio Glucose Lactate 1.4 Calcium Total Bilirubin AST ALT Alkaline Phosphatase Troponin I NT-Pro-B Natriuret Pep Total Protein Albumin Globulin Albumin/Globulin Ratio Triglycerides Cholesterol LDL Cholesterol, Calc HDL Cholesterol Urine Color Urine Appearance Urine pH Ur Specific [place] Urine Protein Urine Glucose (UA) Urine Ketones Urine Occult Blood Urine Nitrate Urine Bilirubin Urine Urobilinogen Ur Leukocyte Esterase Urine RBC Urine WBC Ur Squamous Epith Cells Urine Bacteria Ur Culture Indicated? Vol Urine Centrifuged SARS-CoV-2 (PCR) Influenza A (RT-PCR) Influenza B (RT-PCR) RSV (PCR) Assessment & Plan Assessment & Plan narrative: Acute on chronic diastolic heart failure: -Monitor I and O; daily standing weight; -diuresis with Lasix as BP can tolerate. -check BNP and repeat in 48 hours; low sodium diet -Monitor effectiveness of diuresis. Monitor renal function. -keep potassium> 4 and magnesium> 2 -Telemetry monitoring -serial troponins, Echo -Resume BB/ACEI -Supplemental O2 as needed, goal SpO2> 90% UTI -Blood culture, urine culture, -Antibiotics, ceftriaxone, -Monitor for urine retention, check post void residuals. Bilateral lower extremities chronic wounds. No signs of infection. Continue with nursing wound care. Paroxysmal atrial fibrillation on warfarin, rate controlled. INR 2.4. -Restart metoprolol and warfarin. -INR daily -Telemetry Hyperlipidemia. Restart atorvastatin. Check lipids. Hypothyroidism. Restart levothyroxine. Check TSH. Chronic constipation. Restart sennosides. Time Spent With Patient Time with patient: 50 to 69 minutes with 50% spent counseling/coordinating care Quality VTE Deep Vein Thrombosis/Pulmonary Embolism Present on Admission: No MIPS - Admit I confirm the patient?s Advance Care Plan is present, Code status is documented, Surrogate decision maker is in patient?s record [If Yes, STOP here]: Yes MIPS - Meds 'Current medications' to include all prescriptions, [id number] products, herbals, cannabis/cannabidiol products, and vitamin/mineral/dietary (nutritional) supplements. I have utilized all available resources to obtain, update, or review the patient?s current medications. [If Yes, STOP here]: Yes
[2023-12-21] VITALS (8 sets, daily range): BP systolic 110–155; BP diastolic 51–62; PULSE 65–69; RESP 16–18; TEMP 35.7–36.4; O2SAT 93–100
[2023-12-21] MEDS: POTASSIUM CHLORIDE 20 MEQ TAB 40 MEQ PO ×2 (00:53→13:56)
[2023-12-21 01:06] LABS: Thyroid Stimulating Hormone 0.856 uIU/mL (0.47-4.68)
[2023-12-21] MEDS: FUROSEMIDE 40 MG/4 ML VIAL IV ×2 (05:51→18:08)
[2023-12-21] MEDS: LEVOTHYROXINE 50 MCG TABLET PO (05:51)
--- NOTE | 2023-12-21 08:44 | SLP.IPNOTE ---
Order cancelled per MD.
[2023-12-21] MEDS: OXYCODONE IR 5 MG TABLET PO ×2 (09:06→13:18)
[2023-12-21] MEDS: ACETAMINOPHEN 325 MG TABLET 975 MG PO ×3 (09:06→20:41)
[2023-12-21 09:49] LABS: Alanine Aminotransferase 17 IU/L (<35); Albumin 3.4 g/dL (3.5-5.0); Alkaline Phosphatase 98 U/L (38-126); Aspartate Aminotransferase 27 IU/L (14-36); BUN Creatinine Ratio 29.2 (6-22); Bilirubin Total 1.1 mg/dL (0.2-1.3); Blood Urea Nitrogen 19 mg/dL (7-17); Calcium 11.6 mg/dL (8.4-10.2); Carbon Dioxide 36 mmol/L (22-32); Chloride 100 mmol/L (98-107); Estimated Glomerular Filt Rate > 60 mL/min (>60); Globulin 3.3 g/dL (1.7-4.1); Glucose 121 mg/dL (80-110); HEMOLYSIS < 15 (0-50); Magnesium 1.6 mg/dL (1.6-2.3); Potassium 3.2 mmol/L (3.4-5.1); Sodium 143 mmol/L (137-145); Total Protein 6.7 g/dL (6.3-8.2)
--- NOTE | 2023-12-21 10:50 | PT.IIE ---
Current Diagnoses Acute on chronic diastolic (congestive) heart failure (12/20/23) Surgical History (Last Reviewed 12/21/23 @ 02:17 by Peg Frank MD) H/O mastectomy History of cholecystectomy Medical History (Last Reviewed 12/21/23 @ 02:17 by Peg Frank MD) Atrial fibrillation Breast cancer Congestive heart failure Hiatal hernia Hyperlipidemia Hyponatremia Hypothyroid Pathologic fracture Physical Therapy Inpatient Evaluation/Re-Eval M1 PT/OT-IP Prior Functional Status Start: 12/21/23 13:43 Freq: NEEDED Status: Active Protocol: Document 12/21/23 10:50 AB (Rec: 12/21/23 13:59 AB [id number]) Medical Review Prior Functional Status Medical History Reviewed Yes Communication able to make needs known but with slight confusion Mobility and Gait pt was admitted in the hospital 11/20/23 -11/24/23 and was d/c'd to [facility] . prior to Nov hospitalization, pt was able to use a 4WW for mobility. pt has been receiving PT up until current hospitalization. spoke with [facility] Nurse and stated that pt has been doing PT but has been transferring using a manuelito lift with nursing staff. Activities of Daily Living and IADL's per OT note: Pt able to do self care and grooming needs, but otherwise extensive assist for all other ADL needs. Social History Household Members children Living Arrangements House Number of Floors (Floors) One Floor Number of Stairs To Enter/Railing? 2 steps B rails to enter Home Environment Standard Height Toilet,Walk in Shower Home Equipment Four Wheel Walker Additional Social History Comment pt lives with her Son: deysi M2 PT-IP Current Condition Start: 12/21/23 13:43 Freq: NEEDED Status: Active Protocol: Document 12/21/23 10:50 AB (Rec: 12/21/23 13:59 AB [id number]) Physical Therapy Current Condition Current Condition Evaluation Date 12/21/23 Treatment Diagnosis CHF; UTI; AMS; generalzied weakness Onset Date 12/20/23 M3 PT-IP Subjective Start: 12/21/23 13:43 Freq: NEEDED Status: Active Protocol: Document 12/21/23 10:50 AB (Rec: 12/21/23 13:59 AB [id number]) Subjective Physical Therapy Visit Type Type Initial Evaluation Visit Start Time 10:50 Visit Stop Time 11:50 Number of MANAGER INVESTIGATIONS Visits 60 Physical Therapy Visit Comments Patient Comments agreeable to do PT M4 PT-IP Mobility and Gait Start: 12/21/23 13:43 Freq: NEEDED Status: Active Protocol: Document 12/21/23 10:50 AB (Rec: 12/21/23 13:59 AB [id number]) PT-Bed Mobility Assessment Supine to Sit Supine to Sit Maximum Assistance,Total Assistance,2 Person Assistance ,Head of Bed Elevated,Bedrails Scooting Scooting to Edge of Bed Dependent PT-Transfer Assessment Sit to and From Stand Sit to and from Stand Maximum Assistance,Total Assistance,2 Person Assistance ,Use of Upper Extremities Equipment Transfer Assistive Device Gait Belt Orthotic/Prosthetic Devices or Brace: No Transfers Transfer Destination Chair Transfer Technique Squat Pivot Transfer Ability Level of Assist Maximum Assistance,Total Assistance,2 Person Assistance ,Use of Upper Extremities Comments Mobility Comments pt supine in bed. agreed to do PT. obtained PLOF and home set up. pt was at [facility] prior to hospitalization for rehab after 11/20-11/24/23 hospitalization. pt requiring max A x 2 to total A x 2 with supine to sit with HOB elevated. pt with increase posterior trunk lean and pushing. required max A for sitting balance on EOB. completed sit to stand with bed height elevated max A x 2 to total Ax 2 with pt presenting with heavy UE use on FWW and BLE pushing against the bed for support. pt tolerated ~ 10 sec of standing and sat back on EOB. pt completed squat pivot transfer with PT in front to assist and OT behind pt. positioned pt on the chair. call light and table placed within reach. PT-Balance Assessment Sitting Balance and Reactions Static Sitting Balance Ability Poor Dynamic Sitting Balance Ability Poor Standing Balance and Reactions Static Standing Balance Ability Poor Dynamic Standing Balance Ability Poor Device Used FWW M5 PT-IP Objective Assessments Start: 12/21/23 13:43 Freq: NEEDED Status: Active Protocol: Document 12/21/23 10:50 AB (Rec: 12/21/23 13:59 AB [id number]) Orientation Orientation/Cognition Level of Alertness Alert Orientation Name,Place,Situation Language Function Ability No Deficits Noted Safety Awareness Decreased Safety Awareness Memory Description Short Term Impaired Gross Range of Motion Lower Extremity ROM Impairments B ankle contractures in PF ~ 20-30 deg in PF Strength Lower Extremity Strength Assessment Bilaterally Impaired Hip 2-/5 Knee 2-/5 Ankle R 0/5 L 1/5 M6 PT-IP Treatment Start: 12/21/23 13:43 Freq: NEEDED Status: Active Protocol: Document 12/21/23 10:50 AB (Rec: 12/21/23 13:59 AB [id number]) Physical Therapy Treatment Education Education Provided Safety M7 PT-IP Assessment and Plan Start: 12/21/23 13:43 Freq: NEEDED Status: Active Protocol: Document 12/21/23 10:50 AB (Rec: 12/21/23 13:59 AB [id number]) PT Summary Assessment and Plan Potential Rehabilitation Potential Fair Status of Condition at Evaluation Evolving Summary Impairments Pain,ROM,Strength,Balance, Coordination,Sensation,Tone, Cognition,Bed Mobility, Transfers,Gait,Activity Tolerance Assessment Summary pt is an 88 y/o F who presented with SOB at a wound care clinic visit and found to have O2 of 88. pt transferred to ER and admitted for CHF, UTI and AMS. pt was just hospitalized 11/20/23-11/24/23 and was d/c'd to [facility]. pt requiring max A x 2 to total A x 2 and max cues with all tasks. recommending mechanical lift transfers with nursing staff at this time. pt may go back to SNF when stable. Goals Bed Mobility Goal Minimal Assistance Transfer Goal Minimal Assistance,Front Wheeled Walker Gait Goal Minimal Assistance,Front Wheel Walker Gait Distance 25 Other Goals improve bed mobility, transfers, ambulation using FWW 50 ft CGA Days to Meet Goals 10 Frequency of Treatment Frequency Of Treatment Once a Day Treatment Plan Physical Therapy Treatment Plan Bed Mobility Training,Transfer Training,Gait Training, Therapeutic Exercise,Balance Retraining,Discharge Planning, Hot or Cold Pack,Neuromuscular Re-ed,Coordination Retraining ,Manual Therapy Precautions Other Precautions falls Recommendations To Nursing Amount of Assist Needed Mechanical Lift Discharge Recommendations PT Discharge Recommendations SNF Rehab Transportation Needs at Discharge Wheelchair/Cabulance,Stretcher /Ambulance
[2023-12-21 11:29] LABS: INR 2.8 (0.9-1.3)
--- NOTE | 2023-12-21 11:58 | OT.IP.EVAL ---
Current Diagnoses Acute on chronic diastolic (congestive) heart failure (12/20/23) Past Medical History (Last Reviewed 12/21/23 @ 02:17 by Peg Frank MD) Atrial fibrillation Breast cancer Congestive heart failure Hiatal hernia Hyperlipidemia Hyponatremia Hypothyroid Pathologic fracture Surgical History (Last Reviewed 12/21/23 @ 02:17 by Peg Frank MD) H/O mastectomy History of cholecystectomy Occupational Therapy Inpatient Evaluation/Re-Eval M1 PT/OT-IP Prior Functional Status Start: 12/21/23 12:01 Freq: NEEDED Status: Active Protocol: Document 12/21/23 12:02 [facility] (Rec: 12/21/23 12:22 [facility] [id number]) Medical Review Prior Functional Status Communication Independent Mobility and Gait Pt has been using the manuelito lift at senior care. Activities of Daily Living and IADL's Pt able to do self care and grooming needs, but otherwise extensive assist for all other ADL needs. Prior Functional Level (Other details) Pt states since 10/30 has been needing extensive assist for mobility and ADL needs. Social History Household Members children Living Arrangements Skilled Nurse Facility M2 OT-IP Current Condition Start: 12/21/23 12:01 Freq: Status: Active Protocol: Document 12/21/23 12:02 [facility] (Rec: 12/21/23 12:22 [facility] [id number]) Occupational Therapy Current Condition Current Condition Evaluation Date 12/21/23 Treatment Diagnosis CHF exacerbation, UTI Diagnosis Onset Date 12/20/23 M3 OT- IP Subjective and Pain Start: 12/21/23 12:01 Freq: Status: Active Protocol: Document 12/21/23 12:02 [facility] (Rec: 12/21/23 12:22 [facility] [id number]) OT- Subjective Occupational Therapy Visit Type Type Initial Evaluation Visit Start Time 11:00 Visit Stop Time 11:58 Occupational Therapy Visit Comments Patient Comments Pt agreed to try to get up and PT present for therapy eval. Patient/Caregiver Goals TO get better. OT Pain Assessment Pain When Pain Assessed At Rest Pain Present Pain Present Pain Reported Location Back Intensity 4 Scale Used Numeric (0 - 10) M4 OT- IP ADL's Start: 12/21/23 12:01 Freq: Status: Active Protocol: Document 12/21/23 12:02 [facility] (Rec: 12/21/23 12:22 [facility] [id number]) OT [id number] Comments OT Self-Feeding Comments Not at at meal time, however noted food in her mouth when brushing her teeth and requested that pt have MYSQL DBA orders, Hospitalist notified. OT ADL-Grooming General Evaluation Grooming Ability Minimal Assistance Areas Needing Assistance Retrieving/Set-up of Grooming Items,Combing/Brushing Hair Comments OT Grooming Comments Pt able to do most while sitting from the recliner. OT ADL-Oral Care General Eval Oral Care Ability Standby Assistance Comments Oral Care Comments VC for completeness. OT ADL-Dressing Comments OT Dressing Comments Dependent for all LB dressing needs at this time. OT ADL-Toileting General Evaluation Toileting Ability Total Assistance Areas Needing Assistance Manage Clothing,Perform Perineal Hygiene Comments OT Toileting Comments Use of Purewick and dependent for hygiene and brief change after a bowel movement. Nursing present to assist. OT ADL-Bathing Comments OT Bathing Comments Sponge bath more appropriate at this time. M5 OT- IP IADL's Start: 12/21/23 12:01 Freq: Status: Active Protocol: Document 12/21/23 12:02 [facility] (Rec: 12/21/23 12:22 [facility] [id number]) OT-Instrumental Activities of Daily Living Deficits IADL Deficits Identified Deficits Home Safety Awareness Awareness of Need for Assistance at Home Good Awareness Home Safety Comments Pt is well aware that she is unable to care fore herself and states in the process trying have assisted living. Medication Management Medication Management Caregiver Administers Money Management Money Management Caregiver Provides Assistance Meal Preparation Meal Preparation Caregiver Provides Assist Abstract Clerk Abstract Clerk Caregiver Provides Assist M6 OT- IP Functional Cognition Start: 12/21/23 12:01 Freq: Status: Active Protocol: Document 12/21/23 12:02 [facility] (Rec: 12/21/23 12:22 [facility] [id number]) Cognitive Factors Limiting Selfcare Function Cognitive Ability Level of Alertness Alert Patient Orientation Name,Place,Situation Attention Span Ability Capable of Focused Attention, Capable of Sustained Attention Ability to Follow Commands Able to Follow One Step Commands with Increased Time, Able to Follow One Step Commands with Repetition Memory Description Short Term Impaired Cognitive Comments Cognitive Assessment Comments Pt needing step by step cues to follow for mobility needs and ADL for safety and completeness. Pt is cooperative but needs encouragement. OT- Vision and Hearing OT- Vision Assessment Visual Acuity Glasses All The Time M7 OT- IP Mobility and Balance Start: 12/21/23 12:01 Freq: Status: Active Protocol: Document 12/21/23 12:02 [facility] (Rec: 12/21/23 12:22 [facility] [id number]) OT- Bed Mobility Assessment Supine to Sit Supine to Sit Assist Maximum Assistance,Total Assistance,2 Person Assistance OT-Transfer Assessment Sit to and From Stand Sit to and from Stand Maximum Assistance,Total Assistance,2 Person Assistance Transfers Transfer Ability Maximum Assistance,Total Assistance,2 Person Assistance Technique Transfer Destination Bed,Chair Transfer Technique Squat Pivot Devices Transfer Assistive Devices None,Gait Belt Comments Mobility Comments MAX/Total assist to get BLE to get to the edge of the bed and MAX/Total A x2 to get her trunk upright and to the edge of the bed. MAX/TOTAL A x2 to stand and pt heavily pushes back and needing use on the back of her legs to assist to stand as well. Squat pivot transfer MAX/TOtal A x2. At this time use of the manuelito lift is suggested. Pt heavily leans into posterior tilt. OT- Balance Assessment Sitting Balance and Reactions Static Sitting Balance Ability Poor Dynamic Sitting Balance Ability Poor Standing Balance and Reactions Static Standing Balance Ability Poor Dynamic Standing Balance Ability Poor M8 OT- IP Objective Assessments Start: 12/21/23 12:01 Freq: Status: Active Protocol: Document 12/21/23 12:02 [facility] (Rec: 12/21/23 12:22 [facility] [id number]) OT Gross Range of Motion Upper Extremity Range of Motion Assessment Within Functional Limits OT Strength Upper Extremity Strength Assessment Within Functional Limits Comments Strength Comments WFl for age and lifestyle OT- Coordination Assessment Upper Extremity Finger to Nose Test Bilateral UE Impaired Comments Coordination Comments Slightly off for both index fingers for finger to nose. M9 OT- IP Assessment and Plan Start: 12/21/23 12:01 Freq: Status: Active Protocol: Document 12/21/23 12:02 [facility] (Rec: 12/21/23 12:22 [facility] [id number]) OT Summary Assessment and Plan Potential Rehabilitation Potential Fair Analytic Complexity at Evaluation Moderate Summary OT Impairments Pain,Strength,Balance, Coordination,Functional Cognition,Functional Mobility, Self-Feeding,Grooming,Dressing ,Toileting,Bathing,Toilet Transfers,Shower Transfers, Activity Tolerance Progress Towards Goals Slow Progress due to Pain,Slow Progress due to Medical Issues,Slow Progress due to Activity Tolerance Assessment Summary Pt MOD complexity and main barriers are pain, decreased balance, strength, and needing extensive assist for all ADL and mobility needs. Pt will benefit from skilled rehab to maximize her level of assistance for needs. Pt states in the process of looking to go to an assisted living facility. Goals Self-Feeding Goal Independent Grooming Goal Independent Dressing Goal Moderate Assistance Toileting Goal Moderate Assistance Bathing Goal Moderate Assistance Toilet Transfer Goal Moderate Assistance Shower Transfer Goal Moderate Assistance Days to Meet Goals 30 Frequency of Treatment Frequency Of Treatment Once a Day Treatment Plan OT Treatment Plan ADL Training,Functional Cognition Training,Functional Mobility,Patient/Family Education,Discharge Planning Other Treatment Recommendations and Next Pt to be able to do squat Treatment Focus pivot transfer to drop arm commode with MAX AX 2. Discharge Recommendations OT Discharge Recommendations SNF Rehab Transportation Needs at Discharge Wheelchair/Cabulance
[2023-12-21] MEDS: MAGNESIUM CHLORIDE 64 MG TABLET 128 MG PO (13:56)
--- NOTE | 2023-12-21 14:45 | CM.DANOTE ---
Initial DCP Assessment Visit Reviewed EMR and team rounds for pt's medical status and updates. Met with pt at bedside to introduce self and role, pt was found to be awake, sitting upright in the recliner, wanting to engage in assessment, however was still very confused. Plan to f/u tomorrow with her son/DPOA re: plan for d/c. Payor: [facility] PCP: Yordan Granados Pt is a 88 year-old F re-admitted from [facility] within the last 30-days due to shortness of breath, chest tightness, cough, lightheadedness, and dizziness which was progressively worsened over the last 2-weeks. She was admitted at previously from 11/20/23-11/24/23 and d/c'd to [facility] for rehab. Pt resides with her son, Maximino, in [place], who is also her DPOA. Pt was started on IV ABO's in the ED, will likely return to [facility] once medically cleared to continue rehab. DCP will continue to follow and assist with final d/c recommendations. Discharge Planning/Care Management CM Discharge Assessment Start: 12/21/23 14:41 Freq: Status: Active Protocol: Document 12/21/23 14:42 DPL (Rec: 12/21/23 14:45 [facility] [id number]) Discharge Planning Assessment Assigned Can Conveyor Feeder FLACO Cadena DPJULIO CESAR/Assigned Designee Name Maximino Collins Advance Directives? No History Provided By Patient,Significant Other Has Patient been admitted in last 30 Yes days? Comment 11/20-11/24/23 Prior Living Arrangements Skilled Nurse Facility Comment [facility] Rehab Household Members children Type of transporation used prior to Relies on Others admit Facility Name Admitted From: [facility] Willing to Return to Facility? No Independent with ADL's No Is patient alert and oriented? Yes: Confused Needs Assistance With Grooming,Meal Prep,Toileting, Managing Medications,Home Chores / Shopping Caregiver for Another No Community Services used prior to Physical Therapy,Wound Care admission: DME Already Rented / Owned FWW / Walker Patient/Family Preference [facility] Barriers to Discharge No Comment Plan is for patient to return to [facility], but will need a new auth from [place]. Discharge Plan [facility] Transportation Arrangement Faciity Referrals Initiated None needed If patient plan is SNF: Has PASSR been No completed? Whiteboard Updated in Patient Room with Yes name and ext. # of [employer] Review Status In Process Please Provide Date Initial DC 12/21/23 Assessment Was Performed
--- NOTE | 2023-12-21 14:49 | SLP.IPNOTE ---
THERMAL CUTTING TRACER MACHINE OPERATOR recommendations as of 12/21/23 1430pm: 1. Soft and bite sized solids; add sauces for moisture. Thin liquids. 2. Pills as tolerated. 3. Remain upright 90 degrees during meals and 30 minutes afterwards. 4. Check for pocketing after meals. Clear out mouth with tongue sweep, finger sweep, and/or toothette spongue sweep to ensure oral cavity is clear prior to laying back after meals. 5. Encourage frequent oral care.
--- NOTE | 2023-12-21 14:52 | P.PN_ITS ---
Subjective Subjective Interval history: Feeling better, no chest pain. Less dyspnea. Her feet are less swollen. No nausea, or abdominal pain. Exam Vital Signs (past 8 hours): - 12/21/23 08:41 12/21/23 08:49 12/21/23 09:00 Temperature 96.2 F L Pulse Rate 69 Respiratory Rate 18 Blood Pressure 155/62 H Pulse Oximetry 96 93 Oxygen Delivery Method Nasal Cannula Nasal Cannula Oxygen Flow Rate 2 1.5 Fraction of Inspired Oxygen 26 12/21/23 13:00 Temperature 97.1 F L Pulse Rate 69 Respiratory Rate 16 Blood Pressure 110/52 L Pulse Oximetry 100 Oxygen Delivery Method Oxygen Flow Rate 1 Fraction of Inspired Oxygen Fraction of Inspired Oxygen 26 SaO2/FiO2 Ratio 357 Oxygen Delivery Method Nasal Cannula Oxygen Flow Rate 1 Narrative Exam Narrative: NAD, normal speech. Lungs are clear, heart is regular. Abdomen is nontender. Extremities are wrapped, feet are not very swollen. Normal affect. Objective Labs 12/20/23 16:45 12/21/23 09:29 Labs: Laboratory Results - last 24 hr 12/20/23 12/20/23 12/20/23 16:14 16:45 18:16 WBC 16.7 H RBC 3.72 L Hgb 11.1 L Hct 33.8 L MCV 91.0 MCH 30.0 MCHC 32.9 RDW 17.0 H Plt Count 292 Neut % (Auto) 90.6 H Lymph % (Auto) 4.7 L [place] % (Auto) 4.5 Eos % (Auto) 0.0 L Baso % (Auto) 0.2 Neut # (Auto) 94224 H Lymph # (Auto) 800 L [place] # (Auto) 700 Eos # (Auto) 0 Baso # (Auto) 0 PT 28.1 H INR 2.4 H Sodium 139 Potassium 3.1 L Chloride 102 Carbon Dioxide 31 BUN 18 H Creatinine 0.59 Estimated GFR > 60 BUN/Creatinine Ratio 30.5 H Glucose 125 H Lactate 1.5 Calcium 11.4 H Magnesium Total Bilirubin 1.4 H AST 29 ALT 17 Alkaline Phosphatase 105 Troponin I 0.092 H NT-Pro-B Natriuret Pep 47888 H Total Protein 6.6 Albumin 3.3 L Globulin 3.3 Albumin/Globulin Ratio 1.0 Triglycerides 67 Cholesterol 144 LDL Cholesterol, Calc 58 HDL Cholesterol 73 H TSH 0.856 Urine Color Urine Appearance Urine pH Ur Specific [place] Urine Protein Urine Glucose (UA) Urine Ketones Urine Occult Blood Urine Nitrate Urine Bilirubin Urine Urobilinogen Ur Leukocyte Esterase Urine RBC Urine WBC Ur Squamous Epith Cells Urine Bacteria Ur Culture Indicated? Vol Urine Centrifuged SARS-CoV-2 (PCR) Negative Influenza A (RT-PCR) Flu a negative Influenza B (RT-PCR) Flu b negative RSV (PCR) Negative 12/20/23 12/20/23 12/21/23 19:20 20:03 09:29 WBC RBC Hgb Hct MCV MCH MCHC RDW Plt Count Neut % (Auto) Lymph % (Auto) [place] % (Auto) Eos % (Auto) Baso % (Auto) Neut # (Auto) Lymph # (Auto) [place] # (Auto) Eos # (Auto) Baso # (Auto) PT INR Sodium 143 Potassium 3.2 L Chloride 100 Carbon Dioxide 36 H BUN 19 H Creatinine 0.65 Estimated GFR > 60 BUN/Creatinine Ratio 29.2 H Glucose 121 H Lactate 1.4 Calcium 11.6 H Magnesium 1.6 Total Bilirubin 1.1 AST 27 ALT 17 Alkaline Phosphatase 98 Troponin I NT-Pro-B Natriuret Pep Total Protein 6.7 Albumin 3.4 L Globulin 3.3 Albumin/Globulin Ratio 1.0 Triglycerides Cholesterol LDL Cholesterol, Calc HDL Cholesterol TSH Urine Color Yellow Urine Appearance Cloudy Urine pH 7.5 Ur Specific [place] 1.020 Urine Protein 1+ H Urine Glucose (UA) Negative Urine Ketones Negative Urine Occult Blood 3+ H Urine Nitrate Negative Urine Bilirubin Negative Urine Urobilinogen 1.0 Ur Leukocyte Esterase 2+ H Urine RBC 10-30/hpf H Urine WBC 5-10/hpf H Ur Squamous Epith Cells 0-1 /hpf Urine Bacteria Moderate (10-30) H Ur Culture Indicated? Specimen cultured Vol Urine Centrifuged 10ml (spun) SARS-CoV-2 (PCR) Influenza A (RT-PCR) Influenza B (RT-PCR) RSV (PCR) 12/21/23 11:09 WBC RBC Hgb Hct MCV MCH MCHC RDW Plt Count Neut % (Auto) Lymph % (Auto) [place] % (Auto) Eos % (Auto) Baso % (Auto) Neut # (Auto) Lymph # (Auto) [place] # (Auto) Eos # (Auto) Baso # (Auto) PT 33.0 H INR 2.8 H Sodium Potassium Chloride Carbon Dioxide BUN Creatinine Estimated GFR BUN/Creatinine Ratio Glucose Lactate Calcium Magnesium Total Bilirubin AST ALT Alkaline Phosphatase Troponin I NT-Pro-B Natriuret Pep Total Protein Albumin Globulin Albumin/Globulin Ratio Triglycerides Cholesterol LDL Cholesterol, Calc HDL Cholesterol TSH Urine Color Urine Appearance Urine pH Ur Specific [place] Urine Protein Urine Glucose (UA) Urine Ketones Urine Occult Blood Urine Nitrate Urine Bilirubin Urine Urobilinogen Ur Leukocyte Esterase Urine RBC Urine WBC Ur Squamous Epith Cells Urine Bacteria Ur Culture Indicated? Vol Urine Centrifuged SARS-CoV-2 (PCR) Influenza A (RT-PCR) Influenza B (RT-PCR) RSV (PCR) [facility] Medical History Breast cancer Hyponatremia Hypothyroid Hyperlipidemia Congestive heart failure Atrial fibrillation Pathologic fracture Hiatal hernia Surgical History H/O mastectomy History of cholecystectomy Social History household members: children Smoking Status: Never smoker alcohol intake: current Assessment & Plan Assessment & Plan narrative: Acute on chronic diastolic heart failure, present on admission and active. -Monitor I and O; daily standing weight; -diuresis with Lasix as BP can tolerate. Continue 40 IV Q12 -keep potassium> 4 and magnesium> 2 -Telemetry monitoring -serial troponins, Echo Hypokalemia, new and active. -replete as needed. UTI, present on admission and active. -Blood culture, urine culture (both pending). -Antibiotics, ceftriaxone, -Monitor for urine retention, check post void residuals. Bilateral lower extremities chronic wounds. present on admission and active. - No signs of infection. Continue with nursing wound care. Paroxysmal atrial fibrillation on warfarin, rate controlled. present on admission and active. -INR 2.4. -Restart metoprolol and warfarin. -INR daily -Telemetry Hyperlipidemia. Restart atorvastatin. Check lipids. Hypothyroidism. Restart levothyroxine. Check TSH. Chronic constipation. Restart sennosides. Time Spent With Patient Time with patient: 30 to 49 minutes with 50% spent counseling/coordinating care Quality VTE Deep Vein Thrombosis/Pulmonary Embolism Present on Admission: No
--- NOTE | 2023-12-21 15:14 | ST.IPIE ---
Visit Care Team Role Provider Type Yordan Granados MD Primary Care Provider Non-Staff Specialty: Medical Address: [address] [place] [address], [id number] Email: Peg Frank MD Emergency Provider Physician Referring Provider Specialty: Emergency Medicine Address: [address] [place] [address], [id number] Email: [email or web address] Mario Bosch MD Admit Provider Physician Attending Provider Specialty: Internal Medicine Address: [address] [place] [address], [id number] Fax: Email: [email or web address] Current Diagnoses Acute on chronic diastolic (congestive) heart failure (12/20/23) Past Medical History (Last Reviewed 12/21/23 @ 02:17 by Peg Frank MD) Atrial fibrillation (Medical) Breast cancer (Medical) Congestive heart failure (Medical) Hiatal hernia (Medical) Hyperlipidemia (Medical) Hyponatremia (Medical) Hypothyroid (Medical) Pathologic fracture (Medical) ST IP Initial Evaluation Report CONTRACTS SPECIALIST Clinical Swallow Evaluation Start: 12/21/23 14:40 Freq: Status: Active Protocol: Document 12/21/23 14:41 CG (Rec: 12/21/23 14:47 CG [id number]) Clinical Swallow Evaluation Session Time Visit Start Time 13:00 Visit Stop Time 13:30 Total Visit Minutes 30 Visit Information Visit Number 1 Referral Referring Provider Jose (hospitalist) Reason for Referral pocketing of foods Setting Assessment Location Acute Care Visit Type Note Type Initial evaluation Next Note Type Next Note Type Treatment Note Patient Information History Per H&P: 88 years old female with history of hypertension, paroxysmal atrial fibrillation on warfarin, COPD, hypertrophic cardiomyopathy, referred from wound clinic today after she was found to be short of breath, fatigue, cough, chest tightness, lightheadedness and dizziness for the last 2 weeks getting progressively worse. She also was reporting swelling of her extremities. The patient has bilateral wounds lower extremities and follow-up with wound clinic. Today changed dressing and there was no any infection noted. In the ER the patient was found to be hypoxic requiring oxygen supplements. She also was noted to have CHF exacerbation and UTI. She was given ceftriaxone 1 g IV, Lasix 40 mg IV. Initial laboratory shows WBC 16.7, INR 2.4, potassium 3.1, blood sugar 125 , troponin 0.09, BNP 31535 from 2960, respiratory panel negative, UA positive for leukoesterase 2+, WBC 5?10, bacteria moderate, chest x-ray shows cardiomegaly with findings suggestive for pulmonary edema. Head CT unremarkable. 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 Pt was referred to ST after OT found some pieces of solid food in oral cavity left over from breakfast when OT assisted with oral care this afternoon. Subjective Observations Pt was seated in hospital chair at bedside upon CONTRACTS SPECIALIST entry to the room. Pt was extremely pleasant, agreeable, and cooperative. She was able to answer all CONTRACTS SPECIALIST questions related to swallowing function. She stated that she typically has difficulty with harder, pulp drier firer foods and uses liquid to help wash down her food. Reported by Patient/Caregiver Other Symptoms Difficulty swallowing solids, Food gets stuck,Other Comment Pocketing of solids/oral residue Current Diet Regular (IDDSI 7) Baseline Feeding Method Independent in self-feeding The IDDSI Framework Protocol: IDDSI.1 Objective Assessment Mental Status Alert,Responsive,Cooperative Oral Integrity Oral residue Dentition Within normal limits Lip Function Within normal limits Pucker Within normal limits Lip Retraction Within normal limits Alternating Pucker/Lip Retraction Reduced range of motion Tongue Function Mild impairment Observations of Tongue at Rest Within normal limits Tongue Protrusion Reduced range of motion Tongue Lateralization Reduced range of motion Jaw Function Mild impairment Comment Pt is currently on O2 via NC. Oral motor examination revealed some mild lingual weakness and reduced range of motion. There was mild discoordination on smile/ pucker task. Of most note, pt presents with dry, hoarse sounding voice. She states it is much improved from a few days ago. Unclear what precipitated onset of hoarse voice based on intake documentation. Food and Liquid Trials Position During Assessment Upright (90 degrees) Liquids Trialed Thin (IDDSI 0) Solid Trials Regular (IDDSI 7) Administration Type Cup consecutive sips,Self- feeding Oral Impairment Mildly impaired Oral Phase Comments With thin liquids (milk), pt presented with adequate oral acceptance and containment. No s/sx difficulty with bolus hold of liquid. A-P lingual transit of thin liquid appeared relatively timely and organized. With regular solids (Belvita cookie), pt presented with mildly prolongued munch mastication pattern and mildly slowed re-collection and A-P propulsion of bolus. After the swallow, mild oral residue was present in the lateral sulci and along surface of dentition. Pt independently performed lingual sweep after CONTRACTS SPECIALIST verbally noted residue. Pharyngeal Impairment Mildly impaired Pharyngeal Phase Comments With thin liquids (milk), pt presented with audible swallow on serial swallows, indicating possible disorganization of swallow. Additionally, mild belching was present after swallows in addition to audible bolus flow noises from esophagus. Together these indicate that there is possible esophageal involvement in dysphagia, though unable to assess without instrumental assessment. However, across trials of thin liquids, no overt s/sx aspiration/ penetration were observed. No cough, throat clear, or wet vocal quality, though silent aspiration cannot be ruled out without an instrumental assessment. With regular solid, no overt s /sx aspiration/penetration were noted (though silent aspiration cannot be ruled out without an instrumental assessment). Pt did self- regulate bite size to small bite and was observed to follow with liquid wash, indicating she is already utilizing some pharyngeal/ esophageal strategies independently. Did not trial large solid boluses as this is not pt's typical eating pattern. The IDDSI Framework Protocol: IDDSI.1 Findings Swallowing Function Dysphagia unspecified Swallowing Function Comments oral residue, possible esophageal involvement Severity of Swallow Impairment Mildly impaired Contributing Factors to Swallow Reduced oral strength/ Impairment coordination/sensation, Impaired oral-pharyngeal transport Prognosis Fair Based on Age Impact on Safety and Functioning Risk for inadequate nutrition/ hydration Recommendations Instrumental Assessment No Swallowing Treatment Yes Recommended Solids Soft & Bite-sized (IDDSI 6) Recommended Liquids Thin (IDDSI 0) Safety Precautions/Swallowing Remain upright (90 degrees) Recommendations during all oral intake,Needs verbal cues to use recommended strategies,Upright position at least 30 minutes after meals,Alternate liquids and solids,Check for pocketing Medication Recommendations As Tolerated Discharge Recommendations retirement facility Referrals Recommended Referrals Dietary,Gastroenterology Education Patient/Caregiver Education Described results of evaluation,Patient expressed understanding of evaluation, Family/caregivers expressed understanding of evaluation Goals Short-term Goals 1. Pt will independently utilize strategies to clear oral cavity after meals ( including lingual sweep, finger sweep, and/or toothette sweep). 2. Pt will tolerate diet of soft/bite sized solids and thin liquids without overt s/ sx aspiration. 3. Pt and caregivers will benefit from education in safe swallow strategies to reduce risk of s/sx dysphagia or aspiration. Long-term Goals 1. Pt will tolerate least restrictive diet without overt s/sx aspiration and without oral residue/pocketing in order to meet nutrition/ hydration needs.
[2023-12-21] MEDS: WARFARIN 1 MG TABLET 1.5 MG PO (16:58)
[2023-12-21] MEDS: METOPROLOL ER 50 MG TABLET PO (16:58)
[2023-12-21] MEDS: WARFARIN PER PHARMACY 1 REQUEST MISC (17:00)
[2023-12-21] MEDS: cefTRIAXone 2,000 MG in SODIUM CHLORIDE 0.9% 100 ML 200 MG IV (20:39)
[2023-12-21] MEDS: SENNOSIDES 8.6 MG TABLET PO (20:40)
[2023-12-21] MEDS: LOSARTAN 25 MG TABLET 12.5 MG PO (20:41)
[2023-12-22] VITALS (10 sets, daily range): BP systolic 90–124; BP diastolic 47–65; PULSE 65–94; RESP 16–18; TEMP 35.7–36.7; O2SAT 93–96
[2023-12-22] MEDS: LEVOTHYROXINE 50 MCG TABLET PO (06:30)
[2023-12-22] MEDS: FUROSEMIDE 40 MG/4 ML VIAL IV ×2 (06:30→18:34)
[2023-12-22 06:48] LABS: INR 2.5 (0.9-1.3); Prothrombin Time 29.3 SECONDS (9.4-12.5)
[2023-12-22 06:54] LABS: Alanine Aminotransferase 14 IU/L (<35); Alkaline Phosphatase 95 U/L (38-126); Aspartate Aminotransferase 24 IU/L (14-36); BUN Creatinine Ratio 33.8 (6-22); Bilirubin Total 0.8 mg/dL (0.2-1.3); Blood Urea Nitrogen 27 mg/dL (7-17); Carbon Dioxide 36 mmol/L (22-32); Chloride 100 mmol/L (98-107); Estimated Glomerular Filt Rate > 60 mL/min (>60); Globulin 3.1 g/dL (1.7-4.1); Glucose 90 mg/dL (80-110); HEMOLYSIS < 15 (0-50); Magnesium 1.5 mg/dL (1.6-2.3); Potassium 3.7 mmol/L (3.4-5.1); Sodium 138 mmol/L (137-145); Total Protein 6.1 g/dL (6.3-8.2)
--- NOTE | 2023-12-22 07:32 | PM.PN.1 ---
Subjective Subjective Interval history: Her breathing is improved. No chest pain or palpitations. No abdominal pain. Exam Vital Signs (past 8 hours): - 12/22/23 00:00 12/22/23 04:00 12/22/23 06:38 Temperature 96.5 F L 96.3 F L Pulse Rate 76 65 75 Respiratory Rate 18 16 Blood Pressure 90/61 114/65 118/56 L Pulse Oximetry 95 93 Oxygen Flow Rate 0 0 Fraction of Inspired Oxygen 26 SaO2/FiO2 Ratio 357 Oxygen Delivery Method Room Air Oxygen Flow Rate 0 Narrative Exam Narrative: NAD, normal speech, normal affect. Lungs are clear, normal effort Heart is regular, no murmur. Abdomen is nontender. Feet are unwrapped and there is minimal edema on the feet. Objective Labs 12/20/23 16:45 12/22/23 06:18 Labs: Laboratory Results - last 24 hr 12/21/23 12/21/23 12/22/23 09:29 11:09 06:18 PT 33.0 H 29.3 H INR 2.8 H 2.5 H Sodium 143 138 Potassium 3.2 L 3.7 Chloride 100 100 Carbon Dioxide 36 H 36 H BUN 19 H 27 H Creatinine 0.65 0.80 Estimated GFR > 60 > 60 BUN/Creatinine Ratio 29.2 H 33.8 H Glucose 121 H 90 Calcium 11.6 H 11.0 H Magnesium 1.6 1.5 L Total Bilirubin 1.1 0.8 AST 27 24 ALT 17 14 Alkaline Phosphatase 98 95 Total Protein 6.7 6.1 L Albumin 3.4 L 3.0 L Globulin 3.3 3.1 Albumin/Globulin Ratio 1.0 1.0 PFSH Medical History Breast cancer Hyponatremia Hypothyroid Hyperlipidemia Congestive heart failure Atrial fibrillation Pathologic fracture Hiatal hernia Surgical History H/O mastectomy History of cholecystectomy Social History household members: children Smoking Status: Never smoker alcohol intake: current Assessment & Plan Assessment & Plan narrative: Acute on chronic diastolic heart failure, present on admission and active. -Monitor I and O; daily standing weight; -diuresis with Lasix as BP can tolerate. Continue 40 IV Q12 -keep potassium> 4 and magnesium> 2 -Telemetry monitoring -serial troponins, Echo completed and read pending. Hypokalemia, new and improved. -replete as needed. UTI, present on admission and active. -Blood culture, urine culture (both negative). -Antibiotics, ceftriaxone, -Monitor for urine retention, check post void residuals. Bilateral lower extremities chronic wounds. present on admission and active. - No signs of infection. Continue with nursing wound care. Paroxysmal atrial fibrillation on warfarin, rate controlled. present on admission and active. -INR 2.4. -Restart metoprolol and warfarin. -INR daily -Telemetry Hyperlipidemia. Restart atorvastatin. Check lipids. Hypothyroidism. Restart levothyroxine. Check TSH. Chronic constipation. Restart sennosides. -Will continue antibiotics overnight in spite of negative cultures and tract WBC as it did increase to 16,000 today. We will also follow for evidence of fevers. Time Spent With Patient Time with patient: 30 to 49 minutes with 50% spent counseling/coordinating care Time Spent With Patient Time with patient: 30 to 49 minutes with 50% spent counseling/coordinating care Quality VTE Deep Vein Thrombosis/Pulmonary Embolism Present on Admission: No
--- NOTE | 2023-12-22 07:35 | DI.ECHO.S_ITS ---
[facility]---------+ [facility] +---------+ : : [address] : : : : [phone] : : : : Phone: [phone]+ Echocardiogram Report + + :Name: LINDA MORALES Study Date: 12/22/2023 Height: 70 in : :[facility] ReadingLocation: Weight: 170 lb : : Gender: Female BSA: 1.9 m2 : :: 1935 Age: 88 yrs BP: 118/56 mmHg: :Reason For Study: CONGESTIVE HEART FAILURE : :Ordering Physician: SACHIN, : :EUSEBIO Soto Performed By: Judy Ashley : :Referring: EUSEBIO STEPHENSON : + + Interpretation Summary 1) Mildly increased left ventricular thickness (concentric) with normal size and low normal systolic function (EF 50-55%). 2) Normal right ventricular size with mildly reduced function. There is a pacemaker lead in the right ventricle. 3) There is marked biatrial enlargement. 4) No significant valvular abnormalities. 5) There is a moderate left-sided pleural effusion. 6) No prior Echo available for compaison. Procedure: A two-dimensional transthoracic echocardiogram with color flow and Doppler was performed. The study quality was technically adequate. There is no prior echocardiogram noted for this patient. The patient has a paced rhythm. The heart rate ranged between 65 bpm during the study. Left Ventricle: The left ventricle is normal in size. There is mild concentric left ventricular hypertrophy. The ejection fraction is estimated to be 50-55%. There is a significant dyssynchronous contraction pattern due to the paced rhythm. Right Ventricle: There is a pacemaker lead in the right ventricle. The right ventricle is normal size. Right ventricular systolic function is mildly reduced. Atria: There is marked biatrial enlargement. There is no Doppler evidence for an interatrial shunt. Mitral Valve: There is mild to moderate mitral annular calcification. The mitral valve leaflets are mildly calcified. There is mild mitral regurgitation. Aortic Valve: The aortic valve is trileaflet. The aortic valve opens well. There is no aortic valve stenosis. No aortic regurgitation is present. Tricuspid Valve: The tricuspid valve is normal. There is trace tricuspid regurgitation. Pulmonary artery pressures cannot be estimated because of the lack of a measurable TR jet velocity. Pulmonic Valve: The pulmonic valve leaflets are thin and pliable; valve motion is normal. There is mild pulmonic regurgitation. Great Vessels: The aortic root is normal size. The ascending aorta could not be visualized. The IVC is of normal diameter and collapses greater than 50% with a sniff. This suggests a low right atrial pressure of 3 mm Hg. Pericardium/ Pleura There is no pericardial effusion. There is a moderate left-sided pleural effusion. MMode/2D Measurements & Calculations LVIDd: 4.4 cm LVOT diam: 2.0 cm LVIDs: 2.9 cm Ao root diam: 3.3 cm FS: 33.4 % Ao Arch Diam (Prox Trans): 3.6 cm EPSS: 1.0 cm IVSd: 1.0 cm LVPWd: 1.1 cm LV tanner. diameter/BSA (cm/m^2): 2.2 LV sys. diameter/BSA (cm/m^2): 1.5 LA A2 area: 42.8 cm2 RA long axis: 8.1 cm LA A4 area: 40.8 cm2 RA area: 40.5 cm2 LA length (vol): 8.3 cm RA vol: 172.7 ml LA vol: 178.7 ml RA : 88.6 ml/m2 LA vol index: 91.7 ml/m2 IVC diam: 1.2 cm RVD1 (basal): 3.9 cm TAPSE: 1.4 cm Doppler Measurements & Calculations Ao V2 max: 143.1 cm/sec LVOT Max Willie: 106.6 cm/sec Ao V2 mean: 97.7 cm/sec LV V1 max P.5 mmHg Ao max P.2 mmHg LV V1 VTI: 20.6 cm Ao mean P.2 mmHg JAVID(I,D): 2.1 cm2 Ao V2 VTI: 29.0 cm JAVID(V,D): 2.3 cm2 sev ratio: 0.71 JAVID indexed to BSA (cm^2/m^2): 1.1 MV E max willie: 124.7 cm/sec PA V2 max: 82.5 cm/sec MV A max willie: 31.9 cm/sec PA V2 mean: 61.2 cm/sec MV E/A: 3.9 PA mean P.6 mmHg Med Peak E' Willie: 6.0 cm/sec PA pr(Accel): 46.5 mmHg E/E' med: 20.9 Lat Peak E' Willie: 8.4 cm/sec E/E' lat: 14.8 E/e' average: 17.9 MV dec time: 0.21 sec SV(LVOT): 62.1 ml Reading Physician:04:21 PM
[2023-12-22] MEDS: MAGNESIUM CHLORIDE 64 MG TABLET 128 MG PO (08:26)
[2023-12-22] MEDS: ACETAMINOPHEN 325 MG TABLET 975 MG PO ×2 (08:27→16:46)
[2023-12-22] MEDS: POTASSIUM CHLORIDE 20 MEQ TAB 40 MEQ PO (12:19)
--- NOTE | 2023-12-22 14:15 | CM.DPC ---
DCP Cont. Reviewed EMR and team rounds for pt's status updates. Plan is for pt to d/c tomorrow back to [facility], on rehab. She will need a new [place] Auth at d/c, called and left the Gill [employer]ona MILLER a message requesting a new auth for tomorrow. Will call [facility] in the am and confirm time/auth/transport return to SNF.
--- NOTE | 2023-12-22 15:20 | PT.IPTN ---
Current Diagnoses Acute on chronic diastolic (congestive) heart failure (12/20/23) Physical Therapy Treatment Note M2 PT-IP Current Condition Start: 12/21/23 13:43 Freq: NEEDED Status: Active Protocol: Document 12/21/23 10:50 AB (Rec: 12/21/23 13:59 AB [id number]) Physical Therapy Current Condition Current Condition Evaluation Date 12/21/23 Treatment Diagnosis CHF; UTI; AMS; generalzied weakness Onset Date 12/20/23 M3 PT-IP Subjective Start: 12/21/23 13:43 Freq: NEEDED Status: Active Protocol: Document 12/22/23 16:04 TS (Rec: 12/22/23 16:17 TS [id number]) Subjective Physical Therapy Visit Type Type Treatment Note Visit Start Time 15:20 Visit Stop Time 15:46 Number of PSYCHIATRIC NURSE PRACTITIONER Visits 1 Physical Therapy Visit Comments Patient Comments Pt found resting in bed, hospitalist discussing care with pt, pt is agreeable to PT . M4 PT-IP Mobility and Gait Start: 12/21/23 13:43 Freq: NEEDED Status: Active Protocol: Document 12/22/23 16:04 TS (Rec: 12/22/23 16:17 TS [id number]) PT-Bed Mobility Assessment Supine to Sit Supine to Sit Maximum Assistance,2 Person Assistance,Head of Bed Elevated,Bedrails Scooting Scooting to Edge of Bed Maximum Assistance PT-Transfer Assessment Sit to and From Stand Sit to and from Stand Total Assistance,2 Person Assistance Equipment Transfer Assistive Device Gait Belt,Front Wheeled Walker Orthotic/Prosthetic Devices or Brace: No Transfers Transfer Destination Chair Transfer Technique Squat Pivot Transfer Ability Level of Assist Total Assistance,2 Person Assistance Comments Mobility Comments Supine to sit MaxA x2 with LEARNING CONSULTANT for uprighting trunk and LE assistance to EOB. Scooting to EOB pt required MaxA x2 with use of transfer pad. She sat EOB CGA/SBA with BUE support, pt required cues for use of handrails. Pt has fear of falling sitting EOB and with STS. Attempted STS from bed total assist x2, pt could not come into standing. Squat pivot to chair total assist x2 , cues were provided for sequencing. Pt was left in chair, OT and family in room. Gait Assessment Comments Gait Comments Not at this time PT-Balance Assessment Sitting Balance and Reactions Static Sitting Balance Ability Fair Dynamic Sitting Balance Ability Poor Standing Balance and Reactions Static Standing Balance Ability Poor Dynamic Standing Balance Ability Poor Device Used FWW M5 PT-IP Objective Assessments Start: 12/21/23 13:43 Freq: NEEDED Status: Active Protocol: Document 12/21/23 10:50 AB (Rec: 12/21/23 13:59 AB [id number]) Orientation Orientation/Cognition Level of Alertness Alert Orientation Name,Place,Situation Language Function Ability No Deficits Noted Safety Awareness Decreased Safety Awareness Memory Description Short Term Impaired Gross Range of Motion Lower Extremity ROM Impairments B ankle contractures in PF ~ 20-30 deg in PF Strength Lower Extremity Strength Assessment Bilaterally Impaired Hip 2-/5 Knee 2-/5 Ankle R 0/5 L 1/5 M6 PT-IP Treatment Start: 12/21/23 13:43 Freq: NEEDED Status: Active Protocol: Document 12/22/23 16:04 TS (Rec: 12/22/23 16:17 TS [id number]) Physical Therapy Treatment Education Education Provided Safety M7 PT-IP Assessment and Plan Start: 12/21/23 13:43 Freq: NEEDED Status: Active Protocol: Document 12/22/23 16:04 TS (Rec: 12/22/23 16:17 TS [id number]) PT Summary Assessment and Plan Potential Rehabilitation Potential Fair Summary Impairments Pain,ROM,Strength,Balance, Coordination,Sensation,Tone, Cognition,Bed Mobility, Transfers,Gait,Activity Tolerance Progress Towards Goals Slow Progress due to Pain,Slow Progress due to Medical Issues,Slow Progress due to Activity Tolerance Assessment Summary Y[place]asta is making slow progress with her mobility. She continues to be MaxA for bed mobility x2. She attempted STS with total assist x2 but could not come into standing, pt's feet tend to slide and has a heavy retrolean. She performed squat pivot total assist x2 to chair, she followed single step instructions well. PT continues to recommend SNF at this time. Goals Bed Mobility Goal Minimal Assistance Transfer Goal Minimal Assistance,Front Wheeled Walker Gait Goal Minimal Assistance,Front Wheel Walker Gait Distance 25 Other Goals improve bed mobility, transfers, ambulation using FWW 50 ft CGA Days to Meet Goals 10 Frequency of Treatment Frequency Of Treatment Once a Day Treatment Plan Physical Therapy Treatment Plan Bed Mobility Training,Transfer Training,Gait Training, Therapeutic Exercise,Balance Retraining,Discharge Planning, Hot or Cold Pack,Neuromuscular Re-ed,Coordination Retraining ,Manual Therapy Precautions Other Precautions falls Recommendations To Nursing Amount of Assist Needed Mechanical Lift Discharge Recommendations PT Discharge Recommendations SNF Rehab Transportation Needs at Discharge Wheelchair/Cabulance,Stretcher /Ambulance
--- NOTE | 2023-12-22 15:46 | OT.IP.TRT ---
Current Diagnoses Acute on chronic diastolic (congestive) heart failure (12/20/23) Occupational Therapy Treatment Note M2 OT-IP Current Condition Start: 12/21/23 12:01 Freq: Status: Active Protocol: Document 12/21/23 12:02 [facility] (Rec: 12/21/23 12:22 [facility] [id number]) Occupational Therapy Current Condition Current Condition Evaluation Date 12/21/23 Treatment Diagnosis CHF exacerbation, UTI Diagnosis Onset Date 12/20/23 M3 OT- IP Subjective and Pain Start: 12/21/23 12:01 Freq: Status: Active Protocol: Document 12/22/23 15:20 [facility] (Rec: 12/22/23 15:58 [facility] [id number]) OT- Subjective Occupational Therapy Visit Type Type Treatment Note Visit Start Time 15:20 Visit Stop Time 15:46 Occupational Therapy Visit Comments Patient Comments Pt agreed to get get up to the recliner. Patient/Caregiver Goals To get better. OT Pain Assessment Pain When Pain Assessed During Mobility Pain Present Pain Present Pain Reported Location Back Pain Behaviors Facial Grimacing,Moaning M4 OT- IP ADL's Start: 12/21/23 12:01 Freq: Status: Active Protocol: Document 12/22/23 15:20 [facility] (Rec: 12/22/23 15:58 [facility] [id number]) OT [id number] Comments OT Self-Feeding Comments Not at meal time. OT ADL-Grooming Comments OT Grooming Comments Pt able to brush her hair while sitting in the recliner. OT ADL-Oral Care Comments Oral Care Comments Not performed. OT ADL-Dressing Comments OT Dressing Comments Dependent for all LB dressing needs at this time. OT ADL-Toileting Comments OT Toileting Comments Pt has Pure wick in place. OT ADL-Bathing Comments OT Bathing Comments Sponge bath more appropriate at this time. M5 OT- IP IADL's Start: 12/21/23 12:01 Freq: Status: Active Protocol: Document 12/21/23 12:02 [facility] (Rec: 12/21/23 12:22 [facility] [id number]) OT-Instrumental Activities of Daily Living Deficits IADL Deficits Identified Deficits Home Safety Awareness Awareness of Need for Assistance at Home Good Awareness Home Safety Comments Pt is well aware that she is unable to care for herself and states in the process trying have assisted living. Medication Management Medication Management Caregiver Administers Money Management Money Management Caregiver Provides Assistance Meal Preparation Meal Preparation Caregiver Provides Assist Body Hanger Body Hanger Caregiver Provides Assist M6 OT- IP Functional Cognition Start: 12/21/23 12:01 Freq: Status: Active Protocol: Document 12/22/23 15:20 [facility] (Rec: 12/22/23 15:58 [facility] [id number]) Cognitive Factors Limiting Selfcare Function Cognitive Comments Cognitive Assessment Comments Pt cooperative and still needing step by step instructions for reassurance. M7 OT- IP Mobility and Balance Start: 12/21/23 12:01 Freq: Status: Active Protocol: Document 12/22/23 15:20 [facility] (Rec: 12/22/23 15:58 [facility] [id number]) OT- Bed Mobility Assessment Supine to Sit Supine to Sit Assist Maximum Assistance,2 Person Assistance OT-Transfer Assessment Transfers Transfer Ability Total Assistance,2 Person Assistance Technique Transfer Destination Bed,Chair Transfer Technique Squat Pivot Devices Transfer Assistive Devices None,Gait Belt Comments Mobility Comments Pt able to move her legs a little better and less assist to the edge of the bed in addition to use of green pad to help get her hips to the edge of the bed and then MAX AX 2 to get her trunk upright. Attempted to stand and pt unable to stand today. Squat pivot transfer Total assist x2 . OT- Balance Assessment Sitting Balance and Reactions Static Sitting Balance Ability Fair Dynamic Sitting Balance Ability Poor Standing Balance and Reactions Static Standing Balance Ability Poor Dynamic Standing Balance Ability Poor M8 OT- IP Objective Assessments Start: 12/21/23 12:01 Freq: Status: Active Protocol: Document 12/21/23 12:02 [facility] (Rec: 12/21/23 12:22 [facility] [id number]) OT Gross Range of Motion Upper Extremity Range of Motion Assessment Within Functional Limits OT Strength Upper Extremity Strength Assessment Within Functional Limits Comments Strength Comments WFl for age and lifestyle OT- Coordination Assessment Upper Extremity Finger to Nose Test Bilateral UE Impaired Comments Coordination Comments Slightly off for both index fingers for finger to nose. M9 OT- IP Assessment and Plan Start: 12/21/23 12:01 Freq: Status: Active Protocol: Document 12/22/23 15:20 [facility] (Rec: 12/22/23 15:58 [facility] [id number]) OT Summary Assessment and Plan Potential Rehabilitation Potential Fair Analytic Complexity at Evaluation Moderate Summary OT Impairments Pain,Strength,Balance, Coordination,Functional Cognition,Functional Mobility, Self-Feeding,Grooming,Dressing ,Toileting,Bathing,Toilet Transfers,Shower Transfers, Activity Tolerance Progress Towards Goals Slow Progress due to Pain,Slow Progress due to Medical Issues,Slow Progress due to Activity Tolerance Assessment Summary Pt sitting balance a little better today and needing sba to CGA. Pt will continue to benefit from skilled rehab to maximize her level of independence with ADL's and transfers. At this time pt needs extensive assist. Even after skilled rehab, most likely pt will need LTC versus assisted living pending her progress. Goals Self-Feeding Goal Independent Grooming Goal Independent Dressing Goal Moderate Assistance Toileting Goal Moderate Assistance Bathing Goal Moderate Assistance Toilet Transfer Goal Moderate Assistance Shower Transfer Goal Moderate Assistance Days to Meet Goals 30 Frequency of Treatment Frequency Of Treatment Once a Day Treatment Plan OT Treatment Plan ADL Training,Functional Cognition Training,Functional Mobility,Patient/Family Education,Discharge Planning Other Treatment Recommendations and Next Pt to be able to do squat Treatment Focus pivot transfer to drop arm commode with MAX AX 2. Discharge Recommendations OT Discharge Recommendations SNF Rehab Transportation Needs at Discharge Wheelchair/Cabulance
[2023-12-22] MEDS: METOPROLOL ER 50 MG TABLET PO (16:45)
--- NOTE | 2023-12-22 17:04 | ST.OPTN ---
Visit Care Team Role Provider Type Yordan Granados MD Primary Care Provider Non-Staff Address: [address], [address] Peg Frank MD Emergency Provider Physician Referring Provider Address: [address] [place] [address], [id number] Mario Bosch MD Admit Provider Physician Attending Provider Address: [address] [place] [address], [id number] Fax: REINSPECTOR Treatment Note REINSPECTOR Treatment Note Start: 12/22/23 17:00 Freq: Status: Active Protocol: Document 12/22/23 17:00 [facility] (Rec: 12/22/23 17:04 [facility] [id number]) Speech Pathology Treatment Note Session Time Visit Start Time 16:35 Visit Stop Time 17:55 Total Visit Minutes 20 Visit Information Visit Number 2 Setting Treatment Setting Acute Care Visit Type Note Type Treatment Note General Information Patient History Per H&P: 88 years old female with history of hypertension, paroxysmal atrial fibrillation on warfarin, COPD, hypertrophic cardiomyopathy, referred from wound clinic today after she was found to be short of breath, fatigue, cough, chest tightness, lightheadedness and dizziness for the last 2 weeks getting progressively worse. She also was reporting swelling of her extremities. The patient has bilateral wounds lower extremities and follow-up with wound clinic. Today changed dressing and there was no any infection noted. In the ER the patient was found to be hypoxic requiring oxygen supplements. She also was noted to have CHF exacerbation and UTI. She was given ceftriaxone 1 g IV, Lasix 40 mg IV. Initial laboratory shows WBC 16.7, INR 2.4, potassium 3.1, blood sugar 125 , troponin 0.09, BNP 24150 from 2960, respiratory panel negative, UA positive for leukoesterase 2+, WBC 5?10, bacteria moderate, chest x-ray shows cardiomegaly with findings suggestive for pulmonary edema. Head CT unremarkable. 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 Pt was referred to after OT found some pieces of solid food in oral cavity left over from breakfast when OT assisted with oral care this afternoon. Subjective Observations/Patient Presentation Pt sitting upright in chair in room. Family/friends present in room during session. Pt agreeable to PO trials. Hospitalist came in room during session communicating with family/pt. Objective Treatment Activities Therapeutic PO trials, safe swallowing strategies Assessment Assessment of Improvement ST assessed knowledge of swallow strategies to remove oral stasis, such as lingual sweep and alternating liquids/ solids and oral care. She recalled 1/3 strategies provided mild cues, however may be d/t distractions during session. She consumed 1 chewy bar and 2 oz of thin orange juice via cup. For soft solid, she demonstrated adequate bite size and rate, prolonged mastication however adequate bolus formation and control, piecemeal deglutition, mild oral stasis, no overt s/s of aspiration and no pocketing in oral cavity. Pt independently alternated liquids/solids to assist with oral clearance, which she says she has to do frequently. ST educated Pt on strategies to clear oral stasis and additional safe swallowing strategies. Pt verbalized understanding. ST recommends continuation of current diet.
[2023-12-22] MEDS: WARFARIN 1 MG TABLET 1.5 MG PO (17:06)
[2023-12-22] MEDS: WARFARIN PER PHARMACY 1 REQUEST MISC (17:07)
[2023-12-22] MEDS: cefTRIAXone 2,000 MG in SODIUM CHLORIDE 0.9% 100 ML 200 MG IV (20:41)
[2023-12-22] MEDS: SENNOSIDES 8.6 MG TABLET PO (20:42)
[2023-12-22] MEDS: OXYCODONE IR 5 MG TABLET PO (20:43)
[2023-12-22] MEDS: LOSARTAN 25 MG TABLET 12.5 MG PO (20:43)
[2023-12-23 04:00] VITALS: BP 127/65; PULSE 67; RESP 18; TEMP 35.9; O2SAT 96
[2023-12-23 04:47] VITALS: BP 114/58; PULSE 66
[2023-12-23] MEDS: FUROSEMIDE 40 MG/4 ML VIAL IV (05:02)
[2023-12-23] MEDS: LEVOTHYROXINE 50 MCG TABLET PO (05:02)
[2023-12-23 05:36] LABS: Prothrombin Time 23.2 SECONDS (9.4-12.5)
[2023-12-23 05:41] LABS: Alanine Aminotransferase 15 IU/L (<35); Albumin 2.6 g/dL (3.5-5.0); Albumin Globulin Ratio 0.9 (1.0-2.8); Alkaline Phosphatase 88 U/L (38-126); Aspartate Aminotransferase 26 IU/L (14-36); BUN Creatinine Ratio 34.2 (6-22); Bilirubin Total 0.6 mg/dL (0.2-1.3); Blood Urea Nitrogen 25 mg/dL (7-17); Calcium 10.5 mg/dL (8.4-10.2); Carbon Dioxide 36 mmol/L (22-32); Chloride 100 mmol/L (98-107); Estimated Glomerular Filt Rate > 60 mL/min (>60); Globulin 2.9 g/dL (1.7-4.1); Glucose 84 mg/dL (80-110); HEMOLYSIS < 15 (0-50); Magnesium 1.5 mg/dL (1.6-2.3); Potassium 3.8 mmol/L (3.4-5.1); Sodium 137 mmol/L (137-145); Total Protein 5.5 g/dL (6.3-8.2)
[2023-12-23 08:00] VITALS: BP 109/50; PULSE 68; RESP 16; TEMP 36.4; O2SAT 92
--- NOTE | 2023-12-23 08:55 | CM.DPC ---
DCP Cont. Reviewed EMR for status updates. Plan is for pt to d/c home today, she has a friend who will transport. F/u with Ortho in 2-weeks for wound check. No further needs for CM indicated at this time.
[2023-12-23] MEDS: ACETAMINOPHEN 325 MG TABLET 975 MG PO (09:03)
--- NOTE | 2023-12-23 10:19 | CM.DPC ---
DCP Cont. Reviewed EMR and team rounds for status updates. Called [facility] and requested auth. Obtained auth, #[id number]. Plan is to d/c back to [facility] to continue rehab. Called pt's son and left him a message to update re: plan. No further DCP needs identified at this time.
--- NOTE | 2023-12-23 10:52 | PM.DS.1 ---
History of Present Illness History of Present Illness Chief complaint: post wound care/breathing issues Narrative: 88 years old female with history of hypertension, paroxysmal atrial fibrillation on warfarin, COPD, hypertrophic cardiomyopathy, referred from wound clinic today after she was found to be short of breath, fatigue, cough, chest tightness, lightheadedness and dizziness for the last 2 weeks getting progressively worse. She also was reporting swelling of her extremities. The patient has bilateral wounds lower extremities and follow-up with wound clinic. Today changed dressing and there was no any infection noted. In the ER the patient was found to be hypoxic requiring oxygen supplements. She also was noted to have CHF exacerbation and UTI. She was given ceftriaxone 1 g IV, Lasix 40 mg IV. Initial laboratory shows WBC 16.7, INR 2.4, potassium 3.1, blood sugar 125, troponin 0.09, BNP 83614 from 2960, respiratory panel negative, UA positive for leukoesterase 2+, WBC 5?10, bacteria moderate, chest x-ray shows cardiomegaly with findings suggestive for pulmonary edema. Head CT unremarkable. Discharge Providers Provider Date of admission: 12/20/23 20:06 Discharge Date: 12/23/23 Primary care physician: Yordan Granados MD Consults: 12/20/23 20:15 Consult to Discharge Planning Routine Comment: Consult to Occupational Therapy Evaluate & Treat Comment: Physician Instructions: Evaluate and treat Consult to Physical Therapy Evaluate & Treat Comment: Physician Instructions: Evaluate and Treat 12/20/23 22:33 Consult to Dietitian, Adult Routine Comment: Reason For Exam: low MNA score Consult to Speech Therapy Evaluate & Treat Comment: Physician Instructions: Evaluate and treat 12/21/23 13:38 Consult to Speech Therapy Evaluate & Treat Comment: dysphagia Physician Instructions: Evaluate and treat Discharge provider: Bang Garcia MD Summary Hospital Course Discharge Diagnosis: Acute on chronic diastolic heart failure, present on admission and active. -Monitor I and O; daily standing weight; -diuresis with Lasix IV. -serial troponins normal, Echo unremarkable. Hypokalemia, new and improved. UTI, present on admission and active. -Blood culture, urine culture (both negative). -Antibiotics, ceftriaxone while in hospital. Bilateral lower extremities chronic wounds. present on admission and active. - No signs of infection. Continue with nursing wound care. Paroxysmal atrial fibrillation on warfarin, rate controlled. present on admission and active. -INR 2.4. -Restarted metoprolol and warfarin. Hyperlipidemia. Restart atorvastatin. Check lipids. Hypothyroidism. Restart levothyroxine. Check TSH. Chronic constipation. Restart sennosides. Hospital Course: She was admitted with confusion shortness of breath. She was diuresed for acute on chronic diastolic heart failure. Her echo revealed stable cardiac function. She improved with diuresis and required no oxygen. An initial head CT was unremarkable. She was given antibiotics upon admission for possible urinary tract infection based on UA. A urine culture was negative, she has recently been treated for urine tract infection however. Antibiotics were continued for the duration of her stay. She will be discharged [facility] to [facility] without antibiotics. Cognitively, she returned to her baseline is otherwise doing well. She will require ongoing dressing care and wound care to her lower extremities. They had been doing this at [facility] previous to admission. Her blood pressures were noted to be somewhat up and down in the hospital. No changes were made to her blood pressure medications. She will be started on Lasix at 40 mg every other day and will require follow up laboratory tests within the next 3 days to rule out recurrent hypokalemia. Recommended BMP and magnesium. Status at Discharge Cognitive/behavioral status at discharge: oriented Functional status at discharge: uses cane/walker Overall status at discharge: patient is progressing back to baseline Exam Vital Signs (past 8 hours): - 12/23/23 04:00 12/23/23 04:47 12/23/23 08:00 Temperature 96.6 F L 97.6 F Pulse Rate 67 66 68 Respiratory Rate 18 16 Blood Pressure 127/65 114/58 L 109/50 L Pulse Oximetry 96 92 Oxygen Delivery Method Oxygen Flow Rate 0 12/23/23 08:45 Temperature Pulse Rate Respiratory Rate Blood Pressure Pulse Oximetry Oxygen Delivery Method Room Air Oxygen Flow Rate Fraction of Inspired Oxygen 26 SaO2/FiO2 Ratio 357 Oxygen Delivery Method Room Air Oxygen Flow Rate 0 Narrative Exam Narrative: NAD, oriented. Speech is normal. She is minimal leg edema and both legs are wrapped. Her feet are just very mildly swollen. Her abdomen is distended nontender. Objective Imaging Multiple Studies:: Radiologist's impression: CT head: No acute changes noted. CXR: Mild pulmonary edema. ECHO: 1) Mildly increased left ventricular thickness (concentric) with normal size and low normal systolic function (EF 50-55%). 2) Normal right ventricular size with mildly reduced function. There is a pacemaker lead in the right ventricle. 3) There is marked biatrial enlargement. 4) No significant valvular abnormalities. 5) There is a moderate left-sided pleural effusion. 6) No prior Echo available for compaison. Labs 12/20/23 16:45 12/23/23 04:38 Labs: Laboratory Results - last 24 hr 12/22/23 12/23/23 12:30 04:38 PT 23.2 H D INR 2.0 H Sodium 137 Potassium 3.8 Chloride 100 Carbon Dioxide 36 H BUN 25 H Creatinine 0.73 Estimated GFR > 60 BUN/Creatinine Ratio 34.2 H Glucose 84 Calcium 10.5 H Magnesium 1.5 L Total Bilirubin 0.6 AST 26 ALT 15 Alkaline Phosphatase 88 Troponin I 0.030 Total Protein 5.5 L Albumin 2.6 L Globulin 2.9 Albumin/Globulin Ratio 0.9 L [facility] Medical History Breast cancer Hyponatremia Hypothyroid Hyperlipidemia Congestive heart failure Atrial fibrillation Pathologic fracture Hiatal hernia Surgical History H/O mastectomy History of cholecystectomy Social History household members: children Smoking Status: Never smoker alcohol intake: current Discharge Assessment & Plan Assessment and Plan Assessment: Acute on chronic diastolic heart failure, present on admission and active. Hypokalemia, new and improved. UTI, present on admission and resolved. Bilateral lower extremities chronic wounds. present on admission and active. - No signs of infection. Continue with nursing wound care. Paroxysmal atrial fibrillation on warfarin, rate controlled. present on admission and active. Hyperlipidemia. present on admission and active. Hypertension. present on admission and active. Hypothyroidism. present on admission and active. Chronic constipation. present on admission and active. Plan of Treatment: Return to [facility], no change to medications other than the addition of Lasix at 40 mg every other day. She will require repeat BMP and magnesium in approximately 3 days to monitor electrolytes and need for potassium repletion. Discharge Plan Discharge Plan Patient Disposition: SNF Transfer to: [facility] Under care of provider: Dr. Long Provider Discharge Comment: Stable for return to [facility] level of services. Discharge orders & Medications Prescriptions: New furosemide [Lasix] 40 mg tablet 40 mg PO Q OTHER DAY Qty: 30 1RF Continued atorvastatin 40 mg tablet 40 mg PO BEDTIME bisacodyl 10 mg Suppository 10 mg [place] DAILY PRN (Reason: Constipation) Rx Instructions: if no BM x 3+ days polyethylene glycol 3350 [Miralax] 17 gram/dose Powder 17 g PO DAILY PRN (Reason: Constipation) Rx Instructions: if no BM x 3+ days bisacodyl 5 mg Tablet 5 mg PO DAILY PRN (Reason: Constipation) Rx Instructions: if no BM x 3+ days oxycodone 5 mg tablet 5 mg PO Q4HR PRN (Reason: Pain) Qty: 30 0RF sennosides [senna] 8.6 mg Tablet 8.6 mg PO BEDTIME tizanidine 2 mg tablet 1 mg PO Q6HR PRN (Reason: Muscle Spasm) metoprolol succinate 50 mg tablet extended release 24 hr 50 mg PO QPM Rx Instructions: hold for SBP < 100 or HR < 60 acetaminophen 500 mg Tablet 1,000 mg PO TID levothyroxine 50 mcg tablet 50 mcg PO DAILY losartan 25 mg tablet 12.5 mg PO BEDTIME Rx Instructions: hold for SBP < 100 or HR < 60 warfarin 1 mg tablet 1.5 mg PO QPM ondansetron 4 mg Tablet,Disintegrating 4 mg PO Q6H PRN (Reason: nausea/vomiting) Follow up/Referrals: Yordan Granados MD [Primary Care Provider] - Diet/Activity/Treatments Diet: Regular Skin/Wound/Dressing Care Report to your healthcare provider any signs of infection, such as:: chills, fever Special Rehabilitation Services Reason for rehabilitation: Recovery r/t decondition Rehab type: Physical therapy and Occupational therapy Visit Report/Discharge Packet Stand Alone Forms: Patient Portal/API Discharge Data Primary Care Provider: Yordan Granados VTE Deep Vein Thrombosis/Pulmonary Embolism Present on Admission: No
[2023-12-23] MEDS: MAGNESIUM CHLORIDE 64 MG TABLET 128 MG PO (12:10)
== END 2023-12-23 13:33 | DRG 291 ==
LOC: ED 19:54 → AC 20:06
PROVIDERS: Emergency Medicine; Hospitalist; Admitting Provider Internal Medicine; Emergency Provider Emergency Medicine; PCP Family Medicine; Referring Provider Emergency Medicine; Visit Provider Internal Medicine
DX: I11.0 Hypertensive heart disease with heart failure (principal); I50.33 Acute on chronic diastolic (congestive) heart failure; N39.0 Urinary tract infection, site not specified; I48.0 Paroxysmal atrial fibrillation; E78.5 Hyperlipidemia, unspecified; E03.9 Hypothyroidism, unspecified; K59.09 Other constipation; E87.6 Hypokalemia; Z79.01 Long term (current) use of anticoagulants
CPT/HCPCS: 0241U; 36415; 70450; 71045; 80053; 80061; 81001; 83605; 83735; 83880; 84443; 84484; 85025; 85610; 87040; 87086; 92526; 92610; 93005; 93010; 93306; 96374; 97163; 97166; 97530; 97535; 99213; 99284; 99285; J0696; J1940